=== PATIENT | female | born 1940 ===

== ENCOUNTER 2020-03-16 10:00 | Outpatient (RCR) | payer MEDICARE, SELFPAY ==
[2020-03-10 08:53] VITALS: BP 122/68
--- NOTE | 2020-03-10 10:52 | MHC.PT.EP ---
[facility] [place] [facility] [place] [facility] [place] Office [address] Jana Alvares [address] [phone] F: [phone] F: [phone] F: [phone] F: [phone] Physical Therapy Plan of Care Date of Evaluation: 03/10/20 Diagnosis: Hx of stroke with residual deficits Assessment: 79 y/o female referred to PT s/p CVA with residual effects. Pt reports the only problem is I can't drive. 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 She denies any residual effects except for some word finding occasionally. Currently she is I with ADL's, cooking, and her drives. 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 She ambulates with a SPC and uses furniture for balance around the house. She has B knee pain and gets cortisone shots every 3 months. Examination shows decreased R UE/LE strength (especially R shoulder and R hip), decreased B knee AROM, impaired dynamic balance, ESTEVES BAlance Test 34/56, intact proprioception B LE, intact sensation, mild dysdiadochokinesia UE and alternating feet, and impaired gat pattern. Recommend PT 2x/week (pt would prefer 1x/week) for 6 weeks to address gait/balance/LE strength/knee ROM impairments, implement HEP, and optimize functional mobility. Frequency and Duration: The patient will be seen 1x/week for 6 weeks Short Term Goals: 3 weeks: 1. Will turn 360* without UE support both directions < 10seconds (IR 18seconds with intermittent UE support) 2. Initiate HEP 3. Demonstrate L knee flexion during swing phase of gait (IR: maintains knee extension throughout cycle) Intermediate Goals: 6 weeks: 1. Improve ESTEVES to 45/56 2. Demonstrate 4/5 B LE strength 3. Demonstrate neutral sitting posture without cues 75% of the time (IR moderate L lateral lean/weightshift) Treatment Plan: Modalities to reduce pain, spasms and effusion. Manual therapy to restore motion and function. Therapeutic exercise to improve strength and flexibility. Neuromuscular re-education for posture and balance. Therapeutic activities to return to functional activities of daily living. Please sign and return to therapist. Thank you for your referral.
--- NOTE | 2020-04-19 16:39 | MHC.PT.DC ---
[facility] [place] [facility] [place] Office [place] Office [address] Jana Alvares [address] [phone] F: [phone] F: [phone] F: [phone] F: [phone] Physical Therapy Discharge Report Diagnosis: Hx of stroke with residual deficits Date of Surgery: NA Date of Evaluation: 03/10/20 Date of Discharge: 04/19/20 Treatments to Date: 2 Cancellations to Date: 0 No Shows to Date: 0 Discharge Status: Patient Elected to Stop Discharge Summary: Last attended treatment note: 03/16/20- Pt came in with no new complaints. She stated she was only here for the letter to return to driving. Pt educated on role of PT and importance of balance and strength exercises. After a lot of convincing pt agreed to try balance and strength exercises. Through the session and at the end of the session pt states she can perform all exercises at home and she found balance exercises silly . Pt expressed her desire to not return to therapy. Pt did well with static standing balance on ground. Step stance on airex EC and rocker board was challenging and needed min A to catch balance. Pt would benefit from dynamic balance exercises however pt does not want to perform them. 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 No adverse response noted to any exercise. She is d/c at this time due to over 30 days from last visit Electronically signed by: Yolanda Hernandez PT Please sign and return to therapist. Thank you for your referral.
== END 2020-04-19 16:49 | disposition other institution (70) ==
LOC: HO.PT 10:00
PROVIDERS: PCP Hospitalist; Visit Provider Hospitalist
DX: Z86.73 Personal history of transient ischemic attack (TIA), and cerebral infarction without residual deficits (principal)
CPT/HCPCS: 97110; 97112; 97162

== ENCOUNTER 2020-04-19 11:13 | Outpatient (REF) | payer MEDICARE, SELFPAY ==
--- NOTE | 2020-04-19 11:16 | US_ITS ---
EXAMINATION: US VENOUS ULTRASOUND WITH DOPPLER LOWER EXTREMITY, RIGHT CLINICAL INFORMATION: Swelling COMPARISON: None TECHNIQUE: Ultrasound of the deep veins is performed from the hip to the calf with compression sonography and color and pulse Doppler assessment. Spectral analysis with color-flow imaging is performed. FINDINGS: There is normal venous compression and respiratory variation and augmented flow. The visualized common femoral vein, superficial femoral vein, profunda femoral vein, popliteal vein, and the trifurcation region shows no evidence of deep venous thrombosis. There is no significant popliteal fossa cyst. US/US venous duplex LE RT IMPRESSION: No DVT demonstrated in the right lower extremity.
== END 2020-04-19 11:14 | disposition home or self-care (01) ==
LOC: HO.US 11:13
PROVIDERS: Visit Provider Hospitalist
DX: R60.0 Localized edema (principal)
CPT/HCPCS: 93971

== ENCOUNTER 2020-05-24 10:30 | Outpatient (REF) | payer MEDICARE, SELFPAY ==
[2020-05-24 14:13] LABS: Anion Gap 15 (12-20); Blood Urea Nitrogen 14 mg/dL (9-16); Calcium 9.2 mg/dL (8.4-10.2); Carbon Dioxide 28 mmol/L (22-29); Chloride 103 mmol/L (96-108); Estimated Glomerular Filt Rate > 60; Glucose Random 108 mg/dL (60-115); Potassium 4.5 mmol/l (3.3-5.1); Sodium 141 mmol/L (135-145)
== END 2020-05-24 10:31 | disposition home or self-care (01) ==
LOC: HO.WFDLDS 10:30
PROVIDERS: Visit Provider Hospitalist
DX: R60.0 Localized edema (principal)
CPT/HCPCS: 36415; 80048

== ENCOUNTER 2020-06-23 11:16 | Outpatient (REF) | payer MEDICARE, SELFPAY ==
[2020-06-23 14:28] LABS: Anion Gap 13 (12-20); Blood Urea Nitrogen 20 mg/dL (9-16); Carbon Dioxide 28 mmol/L (22-29); Chloride 105 mmol/L (96-108); Estimated Glomerular Filt Rate > 60; Glucose Random 218 mg/dL (60-115); Potassium 3.7 mmol/L (3.3-5.1); Sodium 142 mmol/L (135-145)
== END 2020-06-23 11:17 | disposition home or self-care (01) ==
LOC: HO.10HDL 11:16
PROVIDERS: Visit Provider Hospitalist
DX: R60.0 Localized edema (principal)
CPT/HCPCS: 36415; 80048

== ENCOUNTER 2020-09-13 05:56 | Emergency (ER) | payer MEDICARE, SELFPAY ==
--- NOTE | ~2020-09-13 | XR_ITS ---
EXAMINATION: XR HIP, RIGHT CLINICAL INFORMATION: Right hip pain. Groin pain. COMPARISON: None TECHNIQUE: Two views of the right hip. Frontal view of the pelvis. FINDINGS: No fracture or dislocation. The femoral heads are well-seated within their acetabula. Mild joint space narrowing bilaterally with subchondral sclerosis. The pelvic rim is intact. The sacroiliac joints and pubic symphysis are intact. The bowel gas pattern is unremarkable. XR/XR hip RT w PEL1V IMPRESSION: No acute abnormality. Mild degenerative changes of both hips.
--- NOTE | ~2020-09-13 | US_ITS ---
EXAMINATION: US VENOUS ULTRASOUND WITH DOPPLER LOWER EXTREMITY, RIGHT CLINICAL INFORMATION: Right-sided pain COMPARISON: None TECHNIQUE: Ultrasound of the deep veins is performed from the hip to the calf with compression sonography and color and pulse Doppler assessment. Spectral analysis with color-flow imaging is performed. FINDINGS: There is normal venous compression and respiratory variation and augmented flow. The visualized common femoral vein, superficial femoral vein, profunda femoral vein, popliteal vein, and the trifurcation region shows no evidence of deep venous thrombosis. There is no significant popliteal fossa cyst. US/US venous duplex LE RT IMPRESSION: No DVT demonstrated in the right lower extremity.
[2020-09-13 06:04] VITALS: BP 140/67; BP 161/72; PULSE 74; PULSE 85; RESP 20; TEMP 36.7; O2SAT 95; O2SAT 97; BMI 28.1
[2020-09-13 06:13] VITALS: BP 140/67; PULSE 88; RESP 20; O2SAT 95
--- NOTE | 2020-09-13 06:23 | ED.EXTPRO ---
HPI - Extremity Problem General Chief complaint: Extremity Injury, Upper Stated complaint: fall Time Seen by Provider: 09/13/20 06:16 Source: patient Mode of arrival: EMS Limitations: no limitations History of Present Illness HPI Narrative: Patient comes emergency room complaining of right-sided hip pain. The pain started yesterday, it is in the groin area, worse with movement. Patient denies any trauma. Patient has tried ibuprofen and Tylenol with minimal relief. Patient states that she is able to tolerate weight. MD Complaint: extremity pain Related Data Home Medications Medication Instructions Recorded Confirmed amlodipine 1 tab PO DAILY 09/13/20 09/13/20 Previous Rx's Medication Instructions Recorded potassium chloride 10 mEq 10 meq PO DAILY 90 Days #90 tab 07/03/20 tablet,extended release(part/cryst) furosemide 40 mg tablet 40 mg PO BID #60 tab 08/23/20 Allergies Allergy/AdvReac Type Severity Reaction Status Date / Time Sulfa (Sulfonamide Allergy Intermediate HIVES Verified 09/13/20 06:08 Antibiotics) [SULFA (SULFONAMIDE ANTIBIOTICS)] epinephrine AdvReac Severe palpitation Verified 09/13/20 06:08 s Review of Systems Review of Systems: Constitutional : No Weight loss, No Fever, No Chills, No Night Sweats, No Fatigue, No Malaise ENT/Mouth : No Hearing loss, No Ear Pain, No Nasal Congestion, No Sinus Pain, No Hoarseness, No sore throat, No Rhinorrhea, No Swallowing Difficulty Eyes: No Eye Pain, No Swelling, No Redness, No Foreign Body, No Discharge, No Vision Changes Cardiovascular : No Chest Pain, No SOB, No Dyspnea on Exertion, No Orthopnea, No Edema, No Palpitations Respiratory : No Cough, No Sputum, No Wheezing, No Smoke Exposure, No Dyspnea Gastrointestinal : No Nausea, No Vomiting, No Diarrhea, No Constipation, No abdominal Pain, No Hematochezia, No Melena Genitourinary : no irregular bleeding, No Dysuria, No Urinary Frequency, No Hematuria, No Urinary Incontinence, No Urgency, No Flank Pain, No Urinary Flow Changes, No Hesitancy Musculoskeletal : Complaining of right-sided hip pain, complaining of chronic bilateral knee pain, No Myalgias, No Joint Swelling Skin : No Skin Lesions, No rash Neuro : No Weakness, No Numbness, No Paresthesias, No Loss of Consciousness, No Dizziness, No Headache Psych : No Anxiety/Panic, No Depression, No SI/HI/AH/VH, No Social Issues, Heme/Lymph: No Bruising, No Bleeding,No Lymphadenopathy Endocrine : No Polyuria, No Polydipsia, No Temperature Intolerance [facility] Past Medical History Surgical History History of arthroscopy of right knee History of bilateral cataract extraction History of tonsillectomy History of total abdominal hysterectomy and bilateral salpingo-oophorectomy History of tubal ligation S/P skin biopsy Family History Family History Father Rheumatic heart disease Hypertension Mother CVD (cardiovascular disease) Dementia Sister Breast cancer Brother No problems noted. Paternal Aunt Breast cancer Family/Other FH: mental illness Social History Social History Alcohol intake: never Smoking Status: Current every day smoker Smoked in Last 30 Days: Yes Use of substances other than those prescribed or required for medical reasons: No Advance Directives: Yes Advance Directives Information Provided: Yes Advance Directives on File: No Physical Exam Vital Signs: Vital Signs: Last Vital Signs Temp 98.0 F 09/13/20 06:04 Pulse 88 09/13/20 06:13 Resp 20 09/13/20 06:13 BP 140/67 H 09/13/20 06:13 Pulse Ox 95 09/13/20 06:13 Body Mass Index 28.1 Appearance: Alert. Oriented X3. No acute distress. Eyes: Pupils equal, round and reactive to light. ENT: Pharynx normal. Neck: Normal inspection. Neck supple. No lymph nodes noted. No crepitus CVS: Normal heart rate and rhythm. Pulses normal. Normal S1 and S2 Respiratory: No respiratory distress. Breath sounds normal. No Wheezing. No rales Abdomen: Soft and nontender. No rigidity. No distention. good BS x4 Skin: Skin warm and dry. Normal skin color. Normal skin turgor. Extremities: No lower extremity edema. Patient is able to flex and extend hip on the left side, knee and ankle. On the right side, patient is able to flex and extend the knee, patient has pain with hip flexion and extension and rotation. Neuro: Oriented X 3. No motor deficit. No sensory deficit. Moving all extermities. No slurred speech. Course Course Course Narrative: Patient's x-ray is negative, patient is able to bear weight, walks with a cane assisted. Patient requested to be seen by Physical therapy and by case management for possible additional help at home. Case management and physical therapy consult is pending. Physician observation starts at this time, 07:30, patient stable, eating breakfast. This time, fracture is not suspected. Patient continues having ongoing, patient may need a CT scan at this time, patient is walking and bearing weight on the right side of the hip. As mentioned above, no history of trauma. Sign-out given to Dr. Beaver Discharge Plan Discharge Clinical Impression: Acute right hip pain Prescriptions: No Action furosemide 40 mg tablet 40 mg PO BID Qty: 60 RF: 2 amlodipine 5 mg tablet 1 tab PO DAILY RF: 0 potassium chloride [Klor-Con M10] 10 mEq tablet,ER particles/crystals 10 meq PO DAILY 90 Days Qty: 90 RF: 1
[2020-09-13] MEDS: traMADoL HCL 50 MG TABLET PO (06:32)
--- NOTE | 2020-09-13 06:50 | PC.NURSE ---
Pt ambulatory with assist x 1 to bathroom with use of baseline cane. Pt with slow but steady gait. Pt now to XR
--- NOTE | 2020-09-13 07:30 | PC.NURSE ---
DR CHAVIRA SPOKE WITH PT. PT EVAL/CM ORDERED. BKFST TRAY GIVEN
[2020-09-13 07:48] VITALS: BP 140/67; PULSE 88; O2SAT 95
[2020-09-13] MEDS: oxyCODONE HCl Immed Release 5 MG TABLET PO (08:06)
--- NOTE | 2020-09-13 09:36 | MHC.CM.ED ---
Addendum entered by Yaritza Farias 09/13/20 10:28: Patient received [employer] Covid vaccine in the middle of . Original Note: Received case managment consult from Dr Morgan. Patient came to the ER due to hip pain. Work up essentially negative. Physical therapy eval completed. Home therapy is recommended. Met with patient in regards to discharge planning. Patient lives with her , uses a cane for mobility and had no services prior to coming to the ER. Patient was active with [facility] in the past. When [facility] services were offered, patient declined because she doesn't feel she needs them. When she had them in the past, she felt they wanted her to perform tasks that were not necessary . When asked to elaborate, patient stated they wanted her to work on going up and down the stairs. Patient didn't feel this was necessary because her washer and dryer are in the basement. But, she hired someone to do her laundry. Patient's will provide transportation when discharged. Continue to monitor for d/c needs.
[2020-09-13] MEDS: Acetaminophen 325 MG TABLET 650 MG PO (12:44)
== END 2020-09-13 13:00 | disposition home or self-care (01) ==
PROVIDERS: Emergency Provider Emergency Medicine; PCP Hospitalist
DX: M25.551 Pain in right hip (principal); M79.604 Pain in right leg; M25.562 Pain in left knee; M25.561 Pain in right knee; F17.200 Nicotine dependence, unspecified, uncomplicated
CPT/HCPCS: 73502; 93971; 97162; 99285

== ENCOUNTER 2020-09-15 06:17 | Emergency (ER) | payer MEDICARE, SELFPAY ==
--- NOTE | ~2020-09-15 | CT_ITS ---
EXAMINATION: CT HIP WITHOUT CONTRAST, RIGHT CLINICAL INFORMATION: Right hip pain COMPARISON: Right hip x-ray 09/13/2020 TECHNIQUE: 2 mm thin axial and reformatted 1 mm thin sagittal and coronal images of right hip were obtained This CT examination was performed using dose optimization techniques as appropriate, variously including the following: *Automated exposure control *Adjustment of mA and/or kV according to patient size (this includes techniques or standardized protocols for targeted exams where dose is matched to indication/reason for exam; i.e. extremities or head) *Use of iterative reconstruction technique DLP: 244 mGy-cm FINDINGS: There is mild reduction in the right hip joint space with minimal periarticular spurring. There is no visible acute fracture or dislocation involving the right hip or the right hemipelvis. Partially visualized right sacrum appears unremarkable. There is mild degenerative changes L5-S1 and right SI joint. There are nonspecific small right inguinal lymph nodes measuring 0.[address]/CT hip RT wo con IMPRESSION: No visible acute fracture, dislocation or subluxation right hip. Mild degenerative changes right hip joint and right SI joint.
--- NOTE | 2020-09-15 06:38 | ED.EXTPRO ---
HPI - Extremity Problem General Chief complaint: Extremity Problem Stated complaint: Hip pain Time Seen by Provider: 09/15/20 06:38 Source: patient Mode of arrival: ambulatory Limitations: no limitations History of Present Illness HPI Narrative: 80 yo female one month of worsening R hip pain atraumatic, has had xrays in past no fracture, trying PT at home with tylenol and aleve but notes the pain is much worse so she came back to the ED Complaint: extremity pain Onset (ago): month(s) (1) Pain Consistency: constant Location: right and lower extremity Quality: aching Radiation: none Relieving factors: nothing Exacerbating factors: weight bearing and walking Associated symptoms: denies other symptoms Related Data Home Medications Medication Instructions Recorded Confirmed amlodipine 1 tab PO DAILY 09/13/20 09/13/20 Previous Rx's Medication Instructions Recorded potassium chloride 10 mEq 10 meq PO DAILY 90 Days #90 tab 07/03/20 tablet,extended release(part/cryst) furosemide 40 mg tablet 40 mg PO BID #60 tab 08/23/20 lidocaine 1 patch TOPICAL DAILY PRN #10 ea 09/15/20 oxycodone 5 mg PO BID PRN #10 tab 09/15/20 Allergies Allergy/AdvReac Type Severity Reaction Status Date / Time Sulfa (Sulfonamide Allergy Intermediate HIVES Verified 09/13/20 06:08 Antibiotics) [SULFA (SULFONAMIDE ANTIBIOTICS)] epinephrine AdvReac Severe palpitation Verified 09/13/20 06:08 s Review of Systems Review of Systems: Constitutional : No Fever, No Chills ENT/Mouth : No Ear Pain, No Hoarseness, No sore throat Eyes: No Eye Pain, No Swelling, No Redness, No Foreign Body Cardiovascular : No Chest Pain, No SOB Respiratory : No Cough, No Dyspnea Gastrointestinal : No Nausea, No Vomiting, No Diarrhea, No abdominal Pain Genitourinary : No Dysuria, No Hematuria Musculoskeletal : positive joint pain, No Myalgias, No Joint Swelling Skin : No Skin lacerations, No rash Neuro : No Weakness, No Numbness, No Loss of Consciousness, No Dizziness, No Headache Psych : No Anxiety/Panic, No Depression Heme/Lymph: no easy bruising, no Lymphadenopathy Endocrine : No Polyuria, No Polydipsia All other systems reviewed and are negative PMFSH Past Medical History Attestation statement: The following information was validated with the patient. Medical History History of CVA (cerebrovascular accident) Hypertension, essential Pedal edema Unilateral edema of lower extremity Surgical History History of arthroscopy of right knee History of bilateral cataract extraction History of tonsillectomy History of total abdominal hysterectomy and bilateral salpingo-oophorectomy History of tubal ligation S/P skin biopsy Family History Family History Father Rheumatic heart disease Hypertension Mother CVD (cardiovascular disease) Dementia Sister Breast cancer Brother No problems noted. Paternal Aunt Breast cancer Family/Other FH: mental illness Social History Social History Alcohol intake: never Smoking Status: Current every day smoker Use of substances other than those prescribed or required for medical reasons: No Advance Directives: No Physical Exam Vital Signs: Vital Signs: Last Vital Signs Temp 98.0 F 09/15/20 06:59 Pulse 72 09/15/20 06:59 Resp 18 09/15/20 06:59 BP 136/65 09/15/20 06:59 Pulse Ox 98 09/15/20 06:59 Body Mass Index 27.4 Appearance: Alert. Oriented X3. No acute distress. Eyes: Pupils equal, round and reactive to light. ENT: Pharynx normal. Neck: Normal inspection. Neck supple. CVS: Normal heart rate and rhythm. Pulses normal. Respiratory: No respiratory distress. Breath sounds normal. Abdomen: Soft and nontender. Skin: Skin warm and dry. Normal skin color. Normal skin turgor. Extremities: No lower extremity edema. R lateral hip ttp no erythema/hematoma Neuro: Oriented X 3. No motor deficit. No sensory deficit. Course Course Course Narrative: no acute findings, stable for DC, will call her orthopedist, up and walking without issue MDM - Extremity (Nontraumatic) MDM Narrative Medical decision making narrative: 80 yo female hx of HTN, CVA no residual deficits comes in with c/o R hip pain > 1 month atraumatic at this time will need CT scan to r/o occult fracture mass, PO pain medications. infection seems unlikely, dispo per results and findings. Discharge Plan Discharge Patient Disposition: Home, Self-Care Instructions: Hip Pain (ED) Additional Instructions: return to ED for any worsening symptoms or concerns please follow up with your orthopedic doctor FINDINGS: There is mild reduction in the right hip joint space with minimal periarticular spurring. There is no visible acute fracture or dislocation involving the right hip or the right hemipelvis. Partially visualized right sacrum appears unremarkable. There is mild degenerative changes L5-S1 and right SI joint. There are nonspecific small right inguinal lymph nodes measuring 0.[address]/CT hip RT wo con IMPRESSION: No visible acute fracture, dislocation or subluxation right hip. Mild degenerative changes right hip joint and right SI joint. Prescriptions: New lidocaine 4 % adhesive patch,medicated 1 patch topical DAILY PRN (Reason: pain) Qty: 10 RF: 0 oxycodone 5 mg tablet 5 mg PO BID PRN (Reason: pain) Qty: 10 RF: 0 No Action furosemide 40 mg tablet 40 mg PO BID Qty: 60 RF: 2 amlodipine 5 mg tablet 1 tab PO DAILY RF: 0 potassium chloride [Klor-Con M10] 10 mEq tablet,ER particles/crystals 10 meq PO DAILY 90 Days Qty: 90 RF: 1
[2020-09-15 06:59] VITALS: BP 136/65; PULSE 72; RESP 18; TEMP 36.7; O2SAT 98; BMI 27.4
[2020-09-15] MEDS: HYDROcodone Bit/Acetam 5/325 TABLET 1 TAB PO (07:41)
--- NOTE | 2020-09-15 07:53 | PC.NURSE ---
PT TO CT
--- NOTE | 2020-09-15 08:06 | PC.NURSE ---
PT RETURN FROM CT PT AMBULATED TO BATHROOM AND BACK WITH CANE INDEPENDENTLY
== END 2020-09-15 09:11 | disposition home or self-care (01) ==
PROVIDERS: Emergency Provider Emergency Medicine; PCP Internal Medicine
DX: M25.551 Pain in right hip (principal); I10 Essential (primary) hypertension; F17.200 Nicotine dependence, unspecified, uncomplicated; Z71.6 Tobacco abuse counseling; Z79.899 Other long term (current) drug therapy
CPT/HCPCS: 73700; 99284

== ENCOUNTER 2020-10-07 02:44 | Inpatient (IN) | payer MEDICARE, SELFPAY ==
[2020-10-07] VITALS (31 sets, daily range): BP systolic 97–151; BP diastolic 50–97; PULSE 77–109; RESP 14–24; TEMP 36.2–37.3; O2SAT 88–95; BMI 34.7
--- NOTE | ~2020-10-07 | XR_ITS ---
EXAMINATION: XR CHEST CLINICAL INFORMATION: Hypoxia COMPARISON: Chest radiograph 10/20/[address] angiogram of the chest 10/07/2020 TECHNIQUE: Frontal view of the chest was obtained. FINDINGS: Enteric tube with tip below the level of the film. Normal cardiac mediastinal silhouette. Hypoinflation of the lungs with streaky opacities at bilateral lung bases. Chronic interstitial changes are again demonstrated. No significant pleural effusion or pneumothorax. No acute osseous abnormality. XR/XR chest 1V IMPRESSION: Low lung volumes with streaky atelectasis at the bilateral lung bases.
--- NOTE | ~2020-10-07 | XR_ITS ---
EXAMINATION: XR CHEST CLINICAL INFORMATION: Follow-up hypoxia COMPARISON: Chest x-ray 10/20/2019 TECHNIQUE: Frontal view of the chest was obtained. FINDINGS: The lungs are hypoexpanded with bibasilar patchy density likely atelectasis or effusion. Heart size enlarged with increased pulmonary vascular, question mild congestion. No gross bony abnormality seen. Enteric tube tip is below the diaphragm in the stomach. XR/XR chest 1V IMPRESSION: Bibasilar patchy atelectasis and/or effusion. Tip of enteric tube is below diaphragm in the stomach.
--- NOTE | ~2020-10-07 | XR_ITS ---
EXAMINATION: XR CHEST CLINICAL INFORMATION: Follow-up atelectasis and hypoxia. COMPARISON: Chest 10/07/2020 TECHNIQUE: Frontal view of the chest was obtained. FINDINGS: The lungs are hypoexpanded with mild blunting of left CP angle. Mild haziness seen in both lung bases suspicious for atelectasis. Heart size is normal. Pulmonary vascularity is normal. There is enteric tube below the diaphragm. Moderate spondylosis dorsal spine is noted. No lytic process. XR/XR chest 1V IMPRESSION: Hypoexpanded lungs with mild blunting of left CP angle likely pleural thickening or effusion. Suspect bibasilar atelectasis
--- NOTE | ~2020-10-07 | CT_ITS ---
EXAMINATION: CT CHEST WITHOUT CONTRAST CLINICAL INFORMATION: Persistent hypoxemia COMPARISON: Chest CT from 10/07/2020. CXR from 10/12/2020. TECHNIQUE: Multidetector volumetric CT imaging of the chest was done. Axial MIP volume rendering provided. Sagittal and coronal reformatted images were obtained. This CT examination was performed using dose optimization techniques as appropriate, variously including the following: *Automated exposure control *Adjustment of mA and/or kV according to patient size (this includes techniques or standardized protocols for targeted exams where dose is matched to indication/reason for exam; i.e. extremities or head) *Use of iterative reconstruction technique DLP: 186 mGy-cm FINDINGS: LUNGS AND PLEURA: Moderate centrilobular emphysema. Minimal thickening of interlobular septa at lung apices/upper lobes consistent with interstitial edema. Small bilateral pleural effusions are present, and there is passive atelectasis in lower lobes. Mild atelectasis also noted in middle lobe and inferior lingula. No consolidation. CARDIOVASCULAR: Heart size is normal. [id number] atherosclerotic calcification of coronary arteries. Moderate atherosclerosis of thoracic aorta without aneurysm. However, the proximal descending aorta is mildly dilated (3.7 cm transverse diameter). No pericardial effusion. Pulmonary arteries are normal in size. MEDIASTINUM AND LOWER NECK: The esophagus has normal wall thickness. Thyroid gland is grossly unremarkable. No mediastinal mass. LYMPHATICS: No pathologic sized lymph nodes. Although multiple lymph nodes are seen within the mediastinum, they are in the normal size range. There is no bulky hilar lymphadenopathy. UPPER ABDOMEN: 2.6 cm simple cyst of the right kidney is partially included in the [id number]. Imaging follow-up is not recommended for simple cysts. An upper abdominal drainage tube is partially included in the [id number]. SKELETAL AND CHEST WALL: There are hypertrophic degenerative changes of the spine. No aggressive osseous lesion. CT/CT chest wo con IMPRESSION: * Moderate pulmonary emphysema. * Minimal interstitial edema, small pleural effusions and bibasilar atelectasis. * Atherosclerotic calcification of coronary arteries and thoracic aorta. The mildly dilated proximal descending aorta is 3.7 cm transverse diameter. * An upper abdominal drainage tube is partially included in the [id number].
--- NOTE | ~2020-10-07 | CT_ITS ---
EXAMINATION: CT ABDOMEN AND PELVIS WITH CONTRAST CLINICAL INFORMATION: Diffuse abdominal pain, worse in the epigastric region. COMPARISON: 10/18/2018 TECHNIQUE: Multidetector volumetric images were obtained from the superior aspect of the liver through the pubic symphysis following administration 85 mL of Omnipaque 350 intravenous contrast. Sagittal and coronal reformatted images were obtained on the technologist's workstation. Oral contrast: No This CT examination was performed using dose optimization techniques as appropriate, variously including the following: *Automated exposure control *Adjustment of mA and/or kV according to patient size (this includes techniques or standardized protocols for targeted exams where dose is matched to indication/reason for exam; i.e. extremities or head) *Use of iterative reconstruction technique DLP: 899 mGy-cm FINDINGS: LUNG BASES: The visualized lung bases are unremarkable. LIVER, GALLBLADDER, AND BILIARY TREE: The liver is normal in size, shape, and attenuation. No focal hepatic lesion or biliary ductal dilatation is present. The gallbladder is unremarkable with no evidence of radiopaque gallstones, gallbladder wall thickening, or obvious pericholecystic inflammatory changes. PANCREAS: Unremarkable. SPLEEN: Unremarkable. ADRENAL GLANDS: Unremarkable. KIDNEYS AND URETERS: The kidneys are normal in size, shape, and attenuation. No hydronephrosis, hydroureter, or calculi seen. No perinephric stranding. Simple cysts of the right kidney. Right lower pole cyst measures 2 cm. Right upper pole cyst measures 3.1 cm. No follow-up imaging recommended. BLADDER: Unremarkable. GASTROINTESTINAL TRACT: Small hiatal hernia. The stomach is otherwise unremarkable. Normal caliber small bowel. No obstruction. Colonic diverticulosis is present. There is no diverticulitis. There is a small amount of free air seen throughout the abdomen this is seen greatest in the upper abdomen. Small amount of simple free fluid in the pelvis.. ABDOMINAL WALL: No significant hernia is appreciated. LYMPH NODES: Normal. VASCULAR: Normal caliber aorta with mild atherosclerotic calcification. Grade 1 anterolisthesis of L4 on L5 with disc space loss at this site. PELVIC VISCERA: Uterus is not seen. No adnexal mass. OSSEOUS STRUCTURES: No acute or suspicious osseous abnormality. Degenerative changes of the spine. CT/CT abdomen pelvis w con IMPRESSION: Pneumoperitoneum. This is of uncertain source. Consider gastric or duodenal ulcer. This critical result was discussed with Elba Morgan MD by telephone at 10/07/2020 3:33 AM and it was ascertained that the content and urgency of the report was understood at the time of direct communication.
--- NOTE | ~2020-10-07 | XR_ITS ---
EXAMINATION: XR CHEST CLINICAL INFORMATION: Respiratory failure. COMPARISON: 10/09/2020 and 10/08/2020 chest radiographs. TECHNIQUE: Frontal view of the chest was obtained. FINDINGS: Support devices: Interval removal of nasogastric tube. There are persistent small bilateral pleural effusions. Mild diffuse increased interstitial markings are seen without significant change. The heart and mediastinal structures are unremarkable. XR/XR chest 1V IMPRESSION: Small bilateral pleural effusions without significant change. Underlying mild edema cannot be excluded.
--- NOTE | ~2020-10-07 | CT_ITS ---
EXAMINATION: CT ANGIOGRAM OF THE CHEST WITH AND WITHOUT CONTRAST (CT PULMONARY ANGIOGRAM FOR PE) CLINICAL INFORMATION: Reason for Exam sob COMPARISON: None TECHNIQUE: Prior to contrast administration, noncontrast localization images were obtained. Subsequently, multidetector volumetric imaging was performed from the thoracic inlet to below the diaphragms following the administration of 85 mL Omnipaque 350 intravenous contrast. No contrast reaction reported Sagittal, coronal, and MIP oblique sagittal reformatted images were obtained on the CT workstation, uploaded to PACS, and reviewed. This CT examination was performed using dose optimization techniques as appropriate, variously including the following: *Automated exposure control *Adjustment of mA and/or kV according to patient size (this includes techniques or standardized protocols for targeted exams where dose is matched to indication/reason for exam; i.e. extremities or head) *Use of iterative reconstruction technique Total exam dose-length product 899 mGy-cm FINDINGS: QUALITY OF STUDY/CONTRAST BOLUS: Satisfactory. PULMONARY ARTERIES: No central or segmental pulmonary emboli. THORACIC AORTA: No aneurysm or dissection. LUNG: The central airways are patent. Severe centrilobular emphysema. Minimal dependent atelectasis. No dense consolidation. PLEURA: No pleural effusion or pneumothorax. MEDIASTINUM: Normal heart size. No pericardial effusion. No hilar or mediastinal lymphadenopathy. No evidence of septal bowing or right heart strain. CHEST WALL/AXILLA: No axillary or internal mammary lymphadenopathy. OSSEOUS STRUCTURES: No acute or suspicious osseous abnormality. Degenerative changes of the spine. UPPER ABDOMEN: Pneumoperitoneum noted, as seen on associated abdominal CT. No reflux of contrast into the hepatic veins to suggest elevated right heart pressures. CT/CT angio chest PE protocol IMPRESSION: 1. No pulmonary embolism. 2. Severe emphysema. No acute pulmonary finding. 3. Pneumoperitoneum. This was previously discussed with Dr. Morgan on the abdominal CT. VTE: negative
--- NOTE | 2020-10-07 02:54 | ECG_ITS ---
Test Reason : EPIGASTRIC PAIN Blood Pressure : / mmHG Vent. Rate : 105 BPM Atrial Rate : 105 BPM P-R Int : 122 ms QRS Dur : 074 ms QT Int : 306 ms P-R-T Axes : 047 020 035 degrees QTc Int : 404 ms Artifact in tracing Sinus tachycardia Possible Left atrial enlargement Borderline ECG When compared with ECG of 20-OCT-2019 08:32, Vent. rate has increased BY 43 BPM Referred By: Elba Morgan Electronically Signed By:SHANNAN STARR
--- NOTE | 2020-10-07 03:10 | ED.GENADULT ---
HPI - General Adult General Chief complaint: Abdominal Pain Stated complaint: abdominal pain Time Seen by Provider: 10/07/20 02:53 Source: patient and EMS Mode of arrival: EMS Limitations: no limitations History of Present Illness HPI narrative: Patient comes emergency room complaining of severe abdominal pain. Patient states this started gradually at 21:00. Patient coming from home. Abdominal pain became very intense, patient call 911. EN route to hospital, it was noted that patient's blood sugar is above 300. Patient denies any history of diabetes. Patient states she has intense diffuse abdominal pain but is worse in the lower quadrant. Patient denies vomiting, complaining of nausea, no diarrhea. Related Data Home Medications Medication Instructions Recorded Confirmed amlodipine 1 tab PO DAILY 09/13/20 09/13/20 Previous Rx's Medication Instructions Recorded potassium chloride 10 mEq 10 meq PO DAILY 90 Days #90 tab 07/03/20 tablet,extended release(part/cryst) furosemide 40 mg tablet 40 mg PO BID #60 tab 08/23/20 lidocaine 1 patch TOPICAL DAILY PRN #10 ea 09/15/20 meloxicam 15 mg tablet 15 mg PO DAILY 30 Days #30 tab 09/18/20 Allergies Allergy/AdvReac Type Severity Reaction Status Date / Time Sulfa (Sulfonamide Allergy Intermediate HIVES Verified 09/18/20 11:42 Antibiotics) [SULFA (SULFONAMIDE ANTIBIOTICS)] epinephrine AdvReac Severe palpitation Verified 09/18/20 11:42 s Review of Systems Review of Systems: Constitutional : No Weight loss, No Fever, No Chills, No Night Sweats, No Fatigue, No Malaise ENT/Mouth : No Hearing loss, No Ear Pain, No Nasal Congestion, No Sinus Pain, No Hoarseness, No sore throat, No Rhinorrhea, No Swallowing Difficulty Eyes: No Eye Pain, No Swelling, No Redness, No Foreign Body, No Discharge, No Vision Changes Cardiovascular : No Chest Pain, No SOB, No Dyspnea on Exertion, No Orthopnea, No Edema, No Palpitations Respiratory : No Cough, No Sputum, No Wheezing, No Smoke Exposure, No Dyspnea Gastrointestinal : Complaining of nausea, No Vomiting, No Diarrhea, No Constipation, complaining of severe diffuse abdominal pain, No Hematochezia, No Melena Genitourinary : no irregular bleeding, No Dysuria, No Urinary Frequency, No Hematuria, No Urinary Incontinence, No Urgency, No Flank Pain, No Urinary Flow Changes, No Hesitancy Musculoskeletal : No joint pain, No Myalgias, No Joint Swelling Skin : No Skin Lesions, No rash Neuro : No Weakness, No Numbness, No Paresthesias, No Loss of Consciousness, No Dizziness, No Headache Psych : No Anxiety/Panic, No Depression, No SI/HI/AH/VH, No Social Issues, Heme/Lymph: No Bruising, No Bleeding,No Lymphadenopathy Endocrine : No Polyuria, No Polydipsia, No Temperature Intolerance [facility] Past Medical History Medical History History of CVA (cerebrovascular accident) Hypertension, essential Pedal edema Unilateral edema of lower extremity Surgical History History of arthroscopy of right knee History of bilateral cataract extraction History of tonsillectomy History of total abdominal hysterectomy and bilateral salpingo-oophorectomy History of tubal ligation S/P skin biopsy Family History Family History Father Rheumatic heart disease Hypertension Mother CVD (cardiovascular disease) Dementia Sister Breast cancer Brother No problems noted. Paternal Aunt Breast cancer Family/Other FH: mental illness Social History Social History Alcohol intake: never Advance Directives: No Advance Directives Information Provided: No Physical Exam Vital Signs: Vital Signs: Last Vital Signs Pulse 109 H 10/07/20 02:51 Resp 16 10/07/20 03:26 BP 151/97 H 10/07/20 02:51 Pulse Ox 95 10/07/20 02:51 Oxygen Flow Rate 2 10/07/20 02:51 Body Mass Index 34.7 Appearance: Alert. Oriented X3. In distress due to pain Eyes: Pupils equal, round and reactive to light. ENT: Pharynx normal. Neck: Normal inspection. Neck supple. No lymph nodes noted. No crepitus CVS: Normal heart rate and rhythm. Pulses normal. Normal S1 and S2 Respiratory: No respiratory distress. Mildly tachypneic, no rales or crackles, oxygen saturation 88% on room air, 95% on 2 L nasal cannula Abdomen: Soft , diffusely tender to palpation, guarding and rebound present. No rigidity. No distention. Skin: Skin warm and dry. Pale Extremities: No lower extremity edema. No lower extremity edema. No Lacerations. No Rash Neuro: Oriented X 3. No motor deficit. No sensory deficit. Moving all extermities. No slurred speech. Course Reevaluation(s) Reevaluation #1: Patient denies any recent respiratory illnesses, patient is not on oxygen, patient complaining of shortness of breath and abdominal pain. CT scan shows severe emphysema. Likely cause that patient has mild hypoxia.Patient is now on 2 L, breathing comfortably. CT for PE negative. Receive a phone call from [facility] regarding the patient's CT findings, patient has free air in the abdomen, unknown source. Patient denies taking NSAIDs, she only uses Tylenol. I discussed the patient with Dr. Farrell, who is coming to evaluate the patient, patient likely going to the OR. At this time, although labs are pending Patient states the last time she ate/drank anything was at 01:00, she had a Sprite Medical Decision Making Lab Data Result diagrams: 10/07/20 03:42 10/07/20 03:42 ECG Data Attestation: I personally reviewed and interpreted this ECG as follows: (Sinus tachycardia, heart rate 105, no ST segment depression or elevation, no T-wave inversion, QTC 404) Discharge Plan Discharge Prescriptions: No Action furosemide 40 mg tablet 40 mg PO BID Qty: 60 RF: 2 amlodipine 5 mg tablet 1 tab PO DAILY RF: 0 lidocaine 4 % adhesive patch,medicated 1 patch topical DAILY PRN (Reason: pain) Qty: 10 RF: 0 potassium chloride [Klor-Con M10] 10 mEq tablet,ER particles/crystals 10 meq PO DAILY 90 Days Qty: 90 RF: 1 meloxicam 15 mg tablet 15 mg PO DAILY 30 Days Qty: 30 RF: 1
[2020-10-07] MEDS: iohexoL 350 MG/ML 100 ML INFUS..BTL 85 ML IV (03:22)
[2020-10-07] MEDS: Morphine Sulfate 4 MG/ML CARTRIDGE IVPUSH (03:26)
[2020-10-07] MEDS: 0.9 % Sodium Chloride 1,000 ML 999 ML IVCONT ×2 (03:26→05:15)
[2020-10-07] MEDS: ondansetron HCL 4 MG/2 ML VIAL IVPUSH (03:26)
[2020-10-07 03:49] LABS: Basophils Percent Auto 0.2 % (0-2); Eosinophils Percent Auto 0.1 % (0-4); Hematocrit 36.4 % (37-47); Hemoglobin 10.9 g/dl (12.0-16.0); Imm Gran Abs Auto 0.05 X10*3/uL (0.00-0.03); Imm Gran Pct Auto 0.3 % (0.0-0.4); Lymphocytes Absolute Auto 0.7 X10*3/uL (1.2-4.9); Lymphocytes Percent Auto 4.5 % (20-40); Mean Corpuscular HGB Conc 29.9 g/dl (31.0-35.0); Mean Corpuscular Hemoglobin 24.6 pg (27.0-33.0); Mean Corpuscular Volume 82.2 fL (80-98); Monocytes Absolute Auto 0.3 X10*3/uL (0.1-1.2); Monocytes Percent Auto 2.1 % (2-11); Neutrophils Absolute Auto 14.5 X10*3/uL (2.0-8.3); Neutrophils Percent Auto 92.8 % (45-73); Platelet Count 401 X10*3/uL (160-400); Red Blood Count 4.43 X10*6/uL (4.20-5.50); Red Cell Distribution Width 19.5 % (11.0-16.0); SCAN SMEAR FLAG 1; White Blood Count 15.6 X10*3/uL (4.8-10.8)
[2020-10-07 03:53] LABS: Venous Blood Gas Refer to POC result
[2020-10-07 03:54] LABS: MANUAL DIFF FLAG SCAN
[2020-10-07 03:54] LABS: VBG HCO3 19 mmol/L (22-26); VBG pCO2 36 mmHg; VBG pH 7.32 (7.32-7.43); VBG pO2 42 mmHg
[2020-10-07 03:55] LABS: INTERNATIONAL NORM RATIO 1.3 (0.9-1.1)
[2020-10-07 04:02] LABS: COVID-19 Test Negative (Negative); IDNOW Serial# 9DD0AD1C
[2020-10-07] MEDS: HYDROmorphone HCl 1 MG/ML SYRINGE IVPUSH (04:06)
[2020-10-07 04:11] LABS: Appearance Urine CLEAR; Color Urine YELLOW; Glucose Urine UA NEG (NEG); Leukocyte Esterase Urine NEG (NEG); Nitrite Urine NEG (NEG); PH 5.5 (5.0-8.0); Specific Gravity - Urine 1.015 (1.005-1.025); UACC Culture Trigger NO; Urine Blood NEG (NEG); Urine Ketones NEG (NEG); Urine Protein NEG (NEG-TRACE)
[2020-10-07 04:11] LABS: Lactic Acid 2.7 mmol/L (0.5-2.0)
--- NOTE | 2020-10-07 04:12 | PC.NURSE ---
PATIENT MEDICATED FOR PAIN STATING LITTLE TO NO RELIEF, BREATHING IS SHALLOW, PATIENT TENSING UP WITH PAIN. PATIENT STATING COPD DENIES NOT USE O2 AT HOME. ROOM AIR IS 88%, PATIENT IS 91% ON 2L. PATIENT REPORTS LAST TIME SHE DRANK SOMETHING WAS AT 1AM ON 10/07/20 IT WAS A SPRITE AND ATE SOMETHING YESTERDAY EVENING. IV ACCESS OBTAINED, LABS OBTAINED, BLOOD TYPE AND SCREEN OBTAINED FOR SURGERY, EKG, AND CT SCAN COMPLETE. LIAO IN PLACE. IV FLUID RUNNING AT THIS TIME.
[2020-10-07 04:13] LABS: Alanine Aminotransferase 13 U/L (0-31); Albumin Level 3.8 g/dL (3.5-5.0); Alkaline Phosphatase 65 U/L (39-117); Anion Gap 18 (12-20); Aspartate Amino Transferase 14 U/L (5-31); Bilirubin Direct 0.3 mg/dL (0.0-0.5); Bilirubin Total 0.4 mg/dL (0.0-1.0); Blood Urea Nitrogen 23 mg/dL (9-16); Calcium 10.1 mg/dL (8.4-10.2); Carbon Dioxide 22 mmol/L (22-29); Chloride 100 mmol/L (96-108); Creatinine Clr Calc Pharmacy 46.2; Estimated Glomerular Filt Rate 52; Glucose Random 212 mg/dL (60-115); Lipase 53 U/L (8-78); Potassium 3.9 mmol/L (3.3-5.1); Sodium 136 mmol/L (135-145); Total Protein 6.8 g/dL (6.5-8.0)
[2020-10-07 04:16] LABS: B Type Natriuretic Peptide 53 pg/mL (<100); Troponin-I High Sensitivity < 3.5 ng/L (<3.5-17.0)
[2020-10-07 04:19] LABS: Acetone, serum QL Negative (Negative)
[2020-10-07 04:25] LABS: SLIDE REVIEW VERIFIED
[2020-10-07] MEDS: Piperacillin Sodium/Tazobactam 3.375 GM in 0.9 % Sodium Chloride 50 ML IV ×3 (04:40→20:10)
--- NOTE | 2020-10-07 04:44 | PC.NURSE ---
PATIENT STATING I CAN FINALLY FALL ASLEEP, YOU WOKE ME UP . STATING PAIN IS TOLERABLE ENOUGH TO SLEEP. BLOOD CULTURES OBTAINED, AND RAUL CEDENO AT BEDSIDE HANGING ANTIBIOTIC PER DR. CHAVIRA.
--- NOTE | 2020-10-07 05:23 | PM.HPGS ---
History of Present Illness History of Present Illness Date of Service: 10/07/20 Chief complaint: abdominal pain Narrative: Olive Waters is a 80 year old female who was brought to the emergency room earlier tonight because of pain. This started around 30 at night. Persisted throughout the night so she decided to the ER. She describes this as severe. She says that this was mostly in the upper abdomen but is felt diffusely. She denies any nausea or vomiting. She denies any similar episodes in the past. She denies chronic use of NSAIDs although she has history of chronic hip pain and chronic knee pain from arthritis. She states states that she is supposed to have knee replacement but she has refused this. She says she does take Tylenol for her arthritic pain. She is a long-time smoker and admits to smoking for over 40 years and says smokes at least 3/4 of a pack every day. She otherwise denies any significant GI complaints. Her states that she had a stroke last year and has some residual sided weakness. She also had a hysterectomy about 6 months ago in [facility] but does not recall the indication for this. Review of Systems Constitutional: Constitutional: Denies chills and Denies fever(s) Cardiovascular: Cardiovascular: Denies chest pain, Reports dyspnea and Reports dyspnea on exertion Respiratory: Respiratory: Reports cough, Reports dyspnea and Reports dyspnea on exertion Gastrointestinal: Gastrointestinal: Denies hematochezia and Denies change in bowel habits Genitourinary: Genitourinary: Denies hematuria Musculoskeletal: Musculoskeletal: Reports back pain, Reports arthralgias and Reports limited range of motion Neurologic: Denies focal weakness and Denies convulsions Psychiatric: Psychiatric: Denies depression and Denies mood swings [facility] Past Medical History Medical History Arthritis History of CVA (cerebrovascular accident) Hypertension, essential Pedal edema Perforated viscus Smoker Unilateral edema of lower extremity Family History Family History Father Rheumatic heart disease Hypertension Mother CVD (cardiovascular disease) Dementia Sister Breast cancer Brother No problems noted. Paternal Aunt Breast cancer Family/Other FH: mental illness Surgical History Surgical History History of arthroscopy of right knee History of bilateral cataract extraction History of tonsillectomy History of total abdominal hysterectomy and bilateral salpingo-oophorectomy History of tubal ligation S/P skin biopsy Social History Social History Alcohol intake: never Patient Tobacco Use Status: Current everyday Tobacco user Smoked in Last 30 Days: Yes Use of substances other than those prescribed or required for medical reasons: No Advance Directives: No Advance Directives Information Provided: No Meds Allergies Allergy/AdvReac Type Severity Reaction Status Date / Time Sulfa (Sulfonamide Allergy Intermediate HIVES Verified 09/18/20 11:42 Antibiotics) [SULFA (SULFONAMIDE ANTIBIOTICS)] epinephrine AdvReac Severe palpitation Verified 09/18/20 11:42 s Active Medications: Current Medications Generic Name Dose Route Start Last Admin Trade Name Freq PRN Reason Stop Dose Admin Cefazolin Sodium/Dextrose 2 gm in 50 mls @ 100 mls/hr 10/07/20 05:08 Ancef IV 10/07/20 05:37 PREOP ONE Home Medications Medication Instructions Recorded Confirmed Last Taken Type amlodipine 1 tab PO DAILY 09/13/20 09/13/20 Unknown History acetaminophen [Tylenol Extra 1,000 mg PO Q6H PRN 10/07/20 10/07/20 Unknown History Strength] Physical Exam Vital Signs: Vital Signs: Last Vital Signs Temp 99.2 F 10/07/20 05:04 Pulse 98 10/07/20 05:04 Resp 21 H 10/07/20 05:04 BP 103/56 L 10/07/20 05:04 Pulse Ox 89 L 10/07/20 05:04 Oxygen Flow Rate 2 10/07/20 02:51 Body Mass Index 34.7 Const: Other: Appears uncomfortable, a little short of breath Orientation/consciousness: patient oriented x3 Neck: Neck: Yes no lymphadenopathy Resp: Auscultation: clear to auscultation bilaterally Cardio: Rhythm: regular rhythm GI: Other: She has severe tenderness diffusely but mostly in the upper abdomen Palpation (GI): Abdominal aortic bruit present, Tenderness to palpation present (GI), no guarding and Rebound tenderness present Neuro: General: patient oriented x3 Results Results Labs: Short CBC 10/07/20 Range/Units 03:42 WBC 15.6 H (4.8-10.8) X10*3/uL Hgb 10.9 L (12.0-16.0) g/dl Hct 36.4 L (37-47) % Plt Count 401 H (160-400) X10*3/uL BMP 10/07/20 03:42 Sodium 136 Potassium 3.9 Chloride 100 Carbon Dioxide 22 BUN 23 H Creatinine 1.02 Calcium 10.1 D Liver Function 10/07/20 Range/Units 03:42 Total Bilirubin 0.4 (0.0-1.0) mg/dL Direct Bilirubin 0.3 (0.0-0.5) mg/dL AST 14 (5-31) U/L ALT 13 (0-31) U/L Alkaline Phosphatase 65 (39-117) U/L Albumin 3.8 (3.5-5.0) g/dL Urine 10/07/20 Range/Units 04:06 Urine Color YELLOW Urine Appearance CLEAR Urine pH 5.5 (5.0-8.0) Ur Specific [place] 1.015 (1.005-1.025) Urine Protein NEG (NEG-TRACE) MG/DL Urine Glucose (UA) NEG (NEG) MG/DL Abdomen CT scan report/results: report reviewed and image reviewed CT scan - chest: report reviewed and image reviewed CT scan - pelvis: report reviewed and image reviewed Assessment and Plan (1) Perforated viscus: Status: Acute [age] year female with severe abdominal pain. I have reviewed her CAT scan this shows some amount of free air in the upper abdomen. She has diverticulosis but no obvious inflammatory process in the colon. She has a perforated viscus likely from a perforated duodenal or gastric ulcer based on the CAT scan findings. She has significant pain and tenderness at this time. I explained to her therefore that it would be best to proceed with laparotomy and likely omental patching of her ulcer. I reviewed with her the technique of this procedure. I discussed the risks including but not limited to bleeding and infections, pneumonia, heart attack, strokes, bowel injury, respiratory failure and even , as well as benefits and alternatives of the procedure. She says she understands and agrees to proceed. I have discussed the above with her as well over the phone. She does not have a significant history of NSAID intake despite her chronic arthritis. The likely etiology of her perforated ulcer would be her significant and long history of smoking. (2) Smoker: Status: Acute She has emphysematous lungs on CT images.I explained to her that there is a possibility she may remain on the ventilator postop. Procedures Date of Service Date of Service: 10/07/20
[2020-10-07 05:47] LABS: Reflex Lactate? Lactic Acid Added
[2020-10-07 08:05] LABS: Reflex Lactate? 2 Y
--- NOTE | 2020-10-07 08:17 | P.BOP_ITS ---
Brief Operative Note Date of Service: 10/07/20 Pre-op diagnosis: PERFORATED VISCUS Post-op diagnosis: same (perf duodenal ulcer) Procedure: laparotomy repair of perforated duodenal ulcer with omental patch Surgeon: David Farrell MD Anesthesia: GETA Was an Circuit Manager used for this Procedure?: No Estimated blood loss (mL): 30 Pathology: none sent Condition: stable Disposition: PACU
--- NOTE | 2020-10-07 08:25 | W.PM.OPN ---
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 She had a CAT scan showing free air on the upper abdomen mostly. She was significantly tender diffusely. Her imaging studies and history were suggestive of a perforated duodenal/stomach ulcer. I explained to her that I am recommending to proceed with laparotomy and repair of this perforation. I discussed with her the technique of the planned procedure as well as the risks, benefits, and alternatives. She was also made aware that the perforation may be in a different area of the GI tract and bowel resection may also be necessary. She was brought to the operating room and placed supine on the table under general anesthesia via endotracheal tube. The Mathis catheter was in place. A surgical time-out was done. The patient received cefazolin 2 g IV preoperatively. The abdomen was prepped and draped in the usual sterile sterile fashion. A midline incision was made on the skin of the upper abdomen using a blade 10. This was carried down through the full-thickness of the skin and subcutaneous fat with electrocautery down to the fascia. The fascia was incised. The peritoneum was entered. The fascial incision was lengthened to optimize the skin incision. Immediately, thick, purulent looking fluid was seen in the peritoneum. I had to do a lot of suctioning to evacuate this murky fluid. I was eventually able to achieve visualization of the peritoneal cavity. The stomach was seen. With Duron retractors on the abdominal wall, I proceeded to examine the stomach at the anterior wall. I did not see any ulcer. We proceeded to trace this distally. There appeared to be persistent drainage of enteric contents in the upper abdomen. I had to lengthen the fascial incision for better exposure. I applied a Bear retractor gently retract the liver gently. By gently pulling down on the stomach I was able to trace this more distally and visualize the 1st part of the duodenum. We were able to then see the perforation on the 1st part of the duodenum. This about 1.5 cm in diameter. The edges appeared viable although just mildly indurated. I had to keep retraction of the distal stomach inferiorly to allow exposure of this area of the duodenum. I then examined the omentum. The patient had some induration of some areas of the omentum. I chose a segment of omentum that was mobile and this appeared to easily reach to the upper abdomen. This was therefore prepared as a patch for repair of the perforation. I then applied three full-thickness 2-0 sutures through the perforation. I left this on untied for now. I closed the perforation with another full-thickness nylon 2-0 stitch. I then pulled up the omentum that I had prepared earlier and this was positioned to cover the entire area of the perforation. I tightened the 3 sutures that were positioned earlier to keep this omentum as a patch covering the entire perforated area in place. These were tightened to secure this over the patch in such a way as not to constrict the omentum and compromise blood supply. I examined the area and copiously irrigated. An NG tube had earlier been placed at the beginning of the case. I palpated for this and made sure that this was positioned just proximal to the perforation. I examined the repair. There seemed to be no active leak anymore of enteric contents from the perforation and the omentum appeared to achieved a good seal. The rest of the adjacent stomach, and duodenum appeared unremarkable. I then did a lot of irrigation in view of the presence of murky, purulent appearing fluid. I positioned a HENRY drain just above the area of the perforation underneath the liver edge and this was brought out through an exit site on the left upper quadrant. This HENRY drain was secured to the skin with 3-0 sutures. I observed for hemostasis. Once hemostasis was ensured, I proceeded to then close the fascia with I running Maxon 1 stitch making sure that no bowel loops were being caught by the stitch. I changed gloves and irrigated the thick subcutaneous layer. And closed the skin with skin tana. I infiltrated the area of the incision with Marcaine 0.5% for postop analgesia. Dressings were then applied. Patient tolerated procedure well. There were no complications noted. Initial and final counts of sponges and instruments were correct. Estimated blood loss was about 30 cc The patient was extubated without difficulty and transferred to the recovery room with stable vital signs.
[2020-10-07] MEDS: fentaNYL citrate/PF 100 MCG/2 ML VIAL 25 MCG IVPUSH (08:36)
[2020-10-07] MEDS: Albuterol Sulfate (0.083%) 2.5 MG/3 ML VIAL.NEB INHALE (09:44)
[2020-10-07 10:31] LABS: ~Lactic Acid-LAB USE ONLY 1.2 mmol/L (0.5-2.0)
[2020-10-07] MEDS: Pantoprazole Sodium 40 MG/10 ML VIAL IVPUSH ×2 (10:41→20:44)
--- NOTE | 2020-10-07 12:14 | P.CONIM_ITS ---
History of Present Illness Data of Consult Service Date: 10/07/20 Primary Care Provider: Unknown Physician HPI Reason for consult: hypoxia 80-year-old female who presented with 1 day of sudden onset severe abdominal pain, diffuse. Denied any nausea vomiting, she takes plavix, meloxicam. In ED found to have free air on CT, concern for perforated ulcer. Patient underwent surgery with laparotomy and repair of perforated duodenal ulcer with omental patch. Course was complicated by perioperative hypoxia. Patient has severe COPD seen on CT, she is also on Lasix 40 mg b.i.d. for pedal edema without specific diagnosis of CHF. Postoperatively patient is denying any shortness of breath. She reports pain at surgical site. Denies chest pain, fever, chills. Review of Systems Review of Systems: Constitutional: Denies fever, denies Chills Eyes: denies blurry vision ENT: denies sore throat CVS: denies chest pain Respiratory: Denies dyspnea GI: abdominal pain : denies dysuria MSK: denies neck pain Skin: denies rash Neuro: denies specific motor weakness Psych: denies suicidal ideation Endocrine: denies heat/cold intoleratnce Hematologic: denies easy bleeding Allergy: denies hives PMF Medical History Arthritis History of CVA (cerebrovascular accident) Hypertension, essential Pedal edema Perforated viscus Smoker Unilateral edema of lower extremity Family History Father Rheumatic heart disease Hypertension Mother CVD (cardiovascular disease) Dementia Sister Breast cancer Brother No problems noted. Paternal Aunt Breast cancer Family/Other FH: mental illness Family history: reviewed and not pertinent Surgical History History of arthroscopy of right knee History of bilateral cataract extraction History of tonsillectomy History of total abdominal hysterectomy and bilateral salpingo-oophorectomy History of tubal ligation S/P skin biopsy Social History Alcohol intake: never Patient Tobacco Use Status: Current everyday Tobacco user Smoked in Last 30 Days: Yes Use of substances other than those prescribed or required for medical reasons: No Advance Directives: No Advance Directives Information Provided: No Meds Allergies Allergy/AdvReac Type Severity Reaction Status Date / Time Sulfa (Sulfonamide Allergy Intermediate HIVES Verified 09/18/20 11:42 Antibiotics) [SULFA (SULFONAMIDE ANTIBIOTICS)] epinephrine AdvReac Severe palpitation Verified 09/18/20 11:42 s Active Medications: Current Medications Generic Name Dose Route Start Last Admin Trade Name Freq PRN Reason Stop Dose Admin Fentanyl 25 mcg 10/07/20 06:59 10/07/20 08:36 Fentanyl Citrate/Pf 100 Mcg/2 Ml Vial IVPUSH 25 mcg Q5M PRN Administration Pain, Moderate (Pain Scale 4-6 Heparin Sodium (Porcine) 5,000 unit 10/08/20 10:15 Heparin Sodium,Porcine 5,000 Unit/Ml Vial SUBCUT Q12H DILLON Hydromorphone HCl 0.25 mg 10/07/20 06:59 Hydromorphone Hcl 0.5 Mg/0.5 Ml Syringe IVPUSH Q5M PRN Pain, Severe (Pain Scale 7-10) Piperacillin Sod/Tazobactam 50 mls @ 100 mls/hr 10/07/20 08:15 10/07/20 10:34 Sod 3.375 gm/ Sodium Chloride IV Not Given Q6H DILLON Lactated Ringer's 1,000 mls @ 100 mls/hr 10/07/20 08:15 10/07/20 10:33 Lr IVCONT Not Given .Q10H [facility] Acetaminophen 1,000 mg in 100 mls @ 400 mls/hr 10/07/20 09:15 10/07/20 10:34 Ofirmev IV 10/08/20 03:29 Infused Q6H [facility] Infusion Morphine Sulfate 3 mg 10/07/20 09:15 Morphine Sulfate 4 Mg/Ml Cartridge IVPUSH Q3H PRN Pain, Severe (Pain Scale 7-10) Ondansetron HCl 4 mg 10/07/20 06:59 Ondansetron Hcl 4 Mg/2 Ml Vial IVPUSH ONCE PRN Nausea and Vomiting Ondansetron HCl 4 mg 10/07/20 09:15 Ondansetron Hcl 4 Mg/2 Ml Vial IVPUSH Q8H PRN nausea Pantoprazole Sodium 40 mg 10/07/20 09:00 10/07/20 10:41 Pantoprazole Sodium 40 Mg/10 Ml Vial IVPUSH 40 mg BID DILLON Administration Home Medications Medication Instructions Recorded Confirmed Last Taken Type amlodipine 1 tab PO DAILY 09/13/20 09/13/20 Unknown History acetaminophen [Tylenol Extra 1,000 mg PO Q6H PRN 10/07/20 10/07/20 Unknown History Strength] Physical Exam Vital Signs and Narrative: Vital Signs: Last Vital Signs Temp 98.2 F 10/07/20 11:38 Pulse 102 H 10/07/20 11:38 Resp 18 10/07/20 11:38 BP 122/66 10/07/20 11:38 Pulse Ox 88 L 10/07/20 11:38 Oxygen Flow Rate 2 10/07/20 02:51 Body Mass Index 34.7 General: Appears to be in some pain, groggy but awake and conversational HEENT: atraumatic Neck: normal to visual inspection CVS: S1, S2, RRR Resp: Diminished Chest: non tender GI: Postop, deferred : no CVA tenderness Skin: no rashes Extremities: no edema Neuro: Oriented X3, mild right hemiparesis Psych: cooperative Results Labs CBC and Chem 7: 10/07/20 03:42 10/07/20 03:42 Labs: Laboratory Results - last 24 hr 10/07/20 10/07/20 10/07/20 03:42 03:42 03:42 MCV 82.2 MCH 24.6 L MCHC 29.9 L RDW 19.5 H Plt Count 401 H MPV 9.0 L Immature Gran % (Auto) 0.3 Neut % (Auto) 92.8 H Lymph % (Auto) 4.5 L [place] % (Auto) 2.1 Eos % (Auto) 0.1 Baso % (Auto) 0.2 Lymph # (Auto) 0.7 L [place] # (Auto) 0.3 Eos # (Auto) 0.0 Baso # (Auto) 0.0 Abs Immat Gran (auto) 0.05 H Absolute Neuts (auto) 14.5 H Absolute Nucleated RBC 0.000 Nucleated RBC % (auto) 0.0 Smear Tech's Comments VERIFIED PT 15.0 H INR 1.3 H VBG pH VBG pCO2 VBG pO2 VBG HCO3 VBG O2 Saturation VBG Base Excess Anion Gap 18 Estim Creat Clear Calc 46.2 Estimated GFR 52 Random Glucose 212 H Lactic Acid Lactic Acid Fup @ 2Hr Lactic Acid Fup @ 4Hr Calcium 10.1 D Total Bilirubin 0.4 Direct Bilirubin 0.3 AST 14 ALT 13 Alkaline Phosphatase 65 Troponin I High Sens B-Natriuretic Peptide Total Protein 6.8 Albumin 3.8 Lipase Urine Color Urine Appearance Urine pH Ur Specific [place] Urine Protein Urine Glucose (UA) Urine Ketones Urine Blood Urine Nitrite Ur Leukocyte Esterase Acetone, Qual COVID-19 (MARTINA) COVID-19 Happy Metrix Com Blood Type Antibody Screen 10/07/20 10/07/20 10/07/20 03:42 03:42 03:42 MCV MCH MCHC RDW Plt Count MPV Immature Gran % (Auto) Neut % (Auto) Lymph % (Auto) [place] % (Auto) Eos % (Auto) Baso % (Auto) Lymph # (Auto) [place] # (Auto) Eos # (Auto) Baso # (Auto) Abs Immat Gran (auto) Absolute Neuts (auto) Absolute Nucleated RBC Nucleated RBC % (auto) Smear Tech's Comments PT INR VBG pH VBG pCO2 VBG pO2 VBG HCO3 VBG O2 Saturation VBG Base Excess Anion Gap Estim Creat Clear Calc Estimated GFR Random Glucose Lactic Acid 2.7 H* Lactic Acid Fup @ 2Hr Lactic Acid Fup @ 4Hr Calcium Total Bilirubin Direct Bilirubin AST ALT Alkaline Phosphatase Troponin I High Sens < 3.5 B-Natriuretic Peptide 53 Total Protein Albumin Lipase 53 Urine Color Urine Appearance Urine pH Ur Specific [place] Urine Protein Urine Glucose (UA) Urine Ketones Urine Blood Urine Nitrite Ur Leukocyte Esterase Acetone, Qual COVID-19 (MARTINA) COVID-19 Happy Metrix Com Blood Type Antibody Screen 10/07/20 10/07/20 10/07/20 03:42 03:43 03:45 MCV MCH MCHC RDW Plt Count MPV Immature Gran % (Auto) Neut % (Auto) Lymph % (Auto) [place] % (Auto) Eos % (Auto) Baso % (Auto) Lymph # (Auto) [place] # (Auto) Eos # (Auto) Baso # (Auto) Abs Immat Gran (auto) Absolute Neuts (auto) Absolute Nucleated RBC Nucleated RBC % (auto) Smear Tech's Comments PT INR VBG pH 7.32 VBG pCO2 36 VBG pO2 42 VBG HCO3 19 L VBG O2 Saturation 68.0 VBG Base Excess -6.0 Anion Gap Estim Creat Clear Calc Estimated GFR Random Glucose Lactic Acid Lactic Acid Fup @ 2Hr Lactic Acid Fup @ 4Hr Calcium Total Bilirubin Direct Bilirubin AST ALT Alkaline Phosphatase Troponin I High Sens B-Natriuretic Peptide Total Protein Albumin Lipase Urine Color Urine Appearance Urine pH Ur Specific [place] Urine Protein Urine Glucose (UA) Urine Ketones Urine Blood Urine Nitrite Ur Leukocyte Esterase Acetone, Qual Negative COVID-19 (MARTINA) Negative COVID-19 Clin Com See Note Blood Type Antibody Screen 10/07/20 10/07/20 10/07/20 03:46 04:06 05:59 MCV MCH MCHC RDW Plt Count MPV Immature Gran % (Auto) Neut % (Auto) Lymph % (Auto) [place] % (Auto) Eos % (Auto) Baso % (Auto) Lymph # (Auto) [place] # (Auto) Eos # (Auto) Baso # (Auto) Abs Immat Gran (auto) Absolute Neuts (auto) Absolute Nucleated RBC Nucleated RBC % (auto) Smear Tech's Comments PT INR VBG pH VBG pCO2 VBG pO2 VBG HCO3 VBG O2 Saturation VBG Base Excess Anion Gap Estim Creat Clear Calc Estimated GFR Random Glucose Lactic Acid Lactic Acid Fup @ 2Hr 2.4 H* Lactic Acid Fup @ 4Hr Calcium Total Bilirubin Direct Bilirubin AST ALT Alkaline Phosphatase Troponin I High Sens B-Natriuretic Peptide Total Protein Albumin Lipase Urine Color YELLOW Urine Appearance CLEAR Urine pH 5.5 Ur Specific [place] 1.015 Urine Protein NEG Urine Glucose (UA) NEG Urine Ketones NEG Urine Blood NEG Urine Nitrite NEG Ur Leukocyte Esterase NEG Acetone, Qual COVID-19 ([facility]ARTINA) COVID-19 Clin Com Blood Type O Positive Antibody Screen NEGATIVE 10/07/20 09:52 MCV MCH MCHC RDW Plt Count MPV Immature Gran % (Auto) Neut % (Auto) Lymph % (Auto) [place] % (Auto) Eos % (Auto) Baso % (Auto) Lymph # (Auto) [place] # (Auto) Eos # (Auto) Baso # (Auto) Abs Immat Gran (auto) Absolute Neuts (auto) Absolute Nucleated RBC Nucleated RBC % (auto) Smear Tech's Comments PT INR VBG pH VBG pCO2 VBG pO2 VBG HCO3 VBG O2 Saturation VBG Base Excess Anion Gap Estim Creat Clear Calc Estimated GFR Random Glucose Lactic Acid Lactic Acid Fup @ 2Hr Lactic Acid Fup @ 4Hr 1.2 Calcium Total Bilirubin Direct Bilirubin AST ALT Alkaline Phosphatase Troponin I High Sens B-Natriuretic Peptide Total Protein Albumin Lipase Urine Color Urine Appearance Urine pH Ur Specific [place] Urine Protein Urine Glucose (UA) Urine Ketones Urine Blood Urine Nitrite Ur Leukocyte Esterase Acetone, Qual COVID-19 (MARTINA) COVID-19 Clin Com Blood Type Antibody Screen Imaging Radiologist's Impressions: Impressions Abdomen/Pelvis CT 10/07/20 02:53 IMPRESSION: Pneumoperitoneum. This is of uncertain source. Consider gastric or duodenal ulcer. This critical result was discussed with Elba Morgan MD by telephone at 10/07/2020 3:33 AM and it was ascertained that the content and urgency of the report was understood at the time of direct communication. Chest CTA 10/07/20 02:56 IMPRESSION: 1. No pulmonary embolism. 2. Severe emphysema. No acute pulmonary finding. 3. Pneumoperitoneum. This was previously discussed with Dr. Morgan on the abdominal CT. VTE: negative Assessment and Plan (1) Perforated viscus: Status: Acute 80F presented with perforated duodenal ulcer, course complicated by acute hypoxic respiratory failure Acute hypoxic respiratory failure Likely due to poor inspiratory effort from pain and anesthesia in the setting of severe emphysema Continues pulse ox, goal saturation low 90s Check chest x-ray for fluid overload Perforated duodenal ulcer Management per surgery Hypertension Hold amlodipine perioperatively Pedal edema ? Underlying CHF undiagnosed versus pulmonary hypertension/right-sided failure from severe emphysema Check echo Holding Lasix for now while NPO History of CVA Hold Plavix - restart when okay with surgery Unclear if was on aspirin, last filled November 2019, no need for dual antiplatelet Restart statin when taking orals
[2020-10-07 12:50] LABS: ABG Refer to POC result
[2020-10-07 12:51] LABS: ABG Base Excess -1.7 mmol/L; ABG HCO3 23 mmol/L (22-26); ABG pCO2 42 mmHg (32-45); ABG pCO2 TC 42 mmHg (32-45); ABG pH 7.35 (7.35-7.45); ABG pH TC 7.35 (7.35-7.45); ABG pO2 53 mmHg (83-108); ABG pO2 TC 52 (83-108)
--- NOTE | 2020-10-07 14:00 | CA_ITS ---
Transthoracic Echocardiogram Patient (Last, First, Middle): Olive Waters, Gender: Female Date of : 1940 Age: 80 Procedure Date: 10/07/2020 Procedure Type: Transthoracic Echocardiogram Location: S3E Height: 157.48 cm Weight: 86.18 kg BSA: 1.87 m2 Heart Rate: bpm BP: 132 / 84 mmHg Quality Worker: Referring MD: Ishaan Perez MD Symptoms: pedal edema, sob Study Quality: Fair ECG Rhythm: Sinus Conclusions: - The left ventricular systolic function is normal. The visually estimated ejection fraction is between 65-70%. - No obvious valvular pathology seen on this study. - Mild pulmonary hypertension is present. - The inferior vena cava is dilated and collapses less than 50% with inspiration. Findings Left Ventricle Normal left ventricular cavity size. There is mildly increased left ventricular wall thickness. The left ventricular systolic function is normal. The visually estimated ejection fraction is between 65-70%. There is no evidence of regional wall motion abnormalities. E/E prime ratio is <8, consistent with normal filling pressures. Evidence suggests grade I (mild) diastolic dysfunction. Right Ventricle Normal right ventricular cavity size and systolic function. Atria The left atrium is normal in size. The right atrium is normal in size. Aortic Valve There is a normal trileaflet aortic valve. There is no aortic valve stenosis. There is no aortic valve regurgitation. Mitral Valve The mitral valve appears normal. There is trace mitral valve regurgitation. There is no mitral valve stenosis. Pulmonic Valve The pulmonic valve was not well visualized. Tricuspid Valve Normal tricuspid valve structure. There is trace tricuspid valve regurgitation. The right ventricular systolic pressure is 37 mmHg. Mild pulmonary hypertension is present. Great Vessels The aortic annulus, sinuses of valsalva, and asc aorta are normal in size. Venous The inferior vena cava is dilated and collapses less than 50% with inspiration. Pericardium/Pleural There is no evidence of pericardial effusion. Prior Study Comparison No prior study available for comparison. Recommendations, Care & Conclusions No obvious valvular pathology seen on this study. Measurements 2D Linear Measurements IVSd: 1.25 0.6-0.9/0.6-1.0 cm LVIDd: 3.61 3.9-5.3/4.2-5.9 cm LVIDd Index: 1.93 2.4-3.2/2.2-3.1 cm/m2 LVIDs: 2.26 2.0-3.6 cm LVPWd: 1.23 0.7-1.1 cm Ao Root: 3.10 2.1-3.5 cm LA Diam: 3.60 2.7-3.8/3.0-4.0 cm LAIDs Index: 1.93 1.5-2.3 cm/m2 LV Mass: 185.97 67-162/88-224 g LV Mass Index: 99.45 43-95/49-115 g/m2 LVOT Diam: 2.00 3.0+(-)1.3 cm Mitral Valve MV Pk E: 0.60 MV PK A: 0.96 MV Decel Time: 157.00 E/A: 0.60 E'Lateral: 7.40 E'Medial: 7.07 E/E' Med: 8.40 E/E' Lat: 8.10 PHT: 46.00 MVA PHT: 4.78 Decel Spink: 3.80 Aortic Valve AoV Pk Sohan: 1.82 AoV Mn Sohan: 0.93 AoV VTI: 0.31 AoV Pk Grad: 13.00 Aov Mn Grad: 5.00 KADE Cont.VTI: 1.98 LVOT LVOT Pk Sohan: 0.98 LVOT Mn Sohan: 0.71 LVOT VTI: 0.20 LVOT Pk Grad: 4.00 LVOT Mn Grad: 2.00 LVOT Diam: 2.00 LVOT Area: 3.14 Diastolic Function MV Pk E: 0.60 MV Pk A: 0.96 E/A: 0.60 E'Medial: 7.07 E/E' Med: 8.40 E' Laterial: 7.40 E/E' Lat: 8.10 Tricuspid Valve TR Pk Sohan: 2.35 TR Pk Grad: 22.00 RA Press: 15.00 RVSP: 37.00 Great Vessels Aorta Ao Root-2D: 3.10 2.0-3.7 cm Ao Asc: 3.30 2.1-3.4 cm Pulmonary Valve PV Pk Sohan: 1.02 Peak PV Grad: 4.00 Updated in Other Vendor System with Status of Final Hi Carvalho MD electronically signed on 10/08/2020 9:38:50 AM with status of Final
--- NOTE | 2020-10-07 14:39 | PM.EVENT ---
Event Note Date of Service: 10/07/20 Event Note: Seen postop Underwent laparotomy, omental patch for perforated duodenal ulcer earlier Stable vital sign A little drowsy but arousable Abdomen soft Good urine output Pain management PPI Incentive spirometry updated by phone
[2020-10-07] MEDS: Furosemide 100 MG/10 ML VIAL 60 MG IVPUSH (15:38)
[2020-10-07] MEDS: Morphine Sulfate 2 MG/ML CARTRIDGE IVPUSH ×2 (17:12→21:39)
[2020-10-07] MEDS: Albuterol/Iprat 2.5/0.5MG 3 ML AMPUL.NEB INHALE (19:42)
[2020-10-07] MEDS: Acetylcysteine 10 % 400 MG/4 ML VIAL INHALE (19:42)
[2020-10-07 21:36] LABS: ~Lactic Acid-LAB USE ONLY 2.4 mmol/L (0.5-2.0)
[2020-10-08] VITALS (17 sets, daily range): BP systolic 104–144; BP diastolic 55–78; PULSE 61–86; RESP 14–24; TEMP 35.8–36.8; O2SAT 91–97
[2020-10-08] MEDS: Lactated Ringers 1,000 ML 100 ML IVCONT ×2 (00:24→14:06)
[2020-10-08] MEDS: Piperacillin Sodium/Tazobactam 3.375 GM in 0.9 % Sodium Chloride 50 ML IV ×4 (02:14→20:34)
[2020-10-08] MEDS: Morphine Sulfate 2 MG/ML CARTRIDGE IVPUSH ×4 (04:08→21:10)
[2020-10-08] MEDS: Albuterol/Iprat 2.5/0.5MG 3 ML AMPUL.NEB INHALE ×4 (07:21→20:19)
[2020-10-08] MEDS: Acetylcysteine 10 % 400 MG/4 ML VIAL INHALE ×4 (07:21→20:19)
[2020-10-08 07:31] LABS: Anion Gap 12 (12-20); Blood Urea Nitrogen 23 mg/dL (9-16); Calcium 8.1 mg/dL (8.4-10.2); Carbon Dioxide 25 mmol/L (22-29); Chloride 105 mmol/L (96-108); Creatinine Clr Calc Pharmacy 54.2; Estimated Glomerular Filt Rate > 60; Glucose Random 123 mg/dL (60-115); Potassium 3.9 mmol/L (3.3-5.1); Sodium 138 mmol/L (135-145)
[2020-10-08 07:35] LABS: B Type Natriuretic Peptide 167 pg/mL (<100)
--- NOTE | 2020-10-08 07:41 | PM.PNGS ---
Subjective Subjective Date of Service: 10/08/20 Interval history: Placed on high-flow O2 last night because of poor O2 sats Did well overnight Pain seems well controlled No events reported Physical Exam Vital Signs: Vital Signs: Last Vital Signs Temp 97.4 F 10/08/20 03:21 Pulse 73 10/08/20 07:26 Resp 20 10/08/20 07:28 BP 104/55 L 10/08/20 03:21 Pulse Ox 94 10/08/20 04:44 Oxygen Flow Rate 2 10/07/20 02:51 Body Mass Index 34.7 Laboratory Results - last 24 hr 10/07/20 10/07/20 10/07/20 05:59 09:52 12:44 O2 Saturation 81.0 ABG pH at Pt Temp 7.35 ABG pH (Temp Corre ct) 7.35 ABG pCO2 at Pt Tem p 42 ABG pCO2 (Temp Cor rct 42 ABG pO2 at Pt Temp 53 L ABG pO2 (Temp Jason ect 52 L ABG HCO3 23 ABG Base Excess (A ctual) -1.7 Sodium Potassium Chloride Carbon Dioxide Anion Gap BUN Creatinine Estim Creat Clear Calc Estimated GFR Random Glucose Lactic Acid Fup @ 2Hr 2.4 H* Lactic Acid Fup @ 4Hr 1.2 Calcium B-Natriuretic Pept stacie 10/08/20 10/08/20 06:07 06:07 O2 Saturation ABG pH at Pt Temp ABG pH (Temp Corre ct) ABG pCO2 at Pt Tem p ABG pCO2 (Temp Cor rct ABG pO2 at Pt Temp ABG pO2 (Temp Jason ect ABG HCO3 ABG Base Excess (A ctual) Sodium 138 Potassium 3.9 Chloride 105 Carbon Dioxide 25 Anion Gap 12 BUN 23 H Creatinine 0.87 Estim Creat Clear Calc 54.2 Estimated GFR > 60 Random Glucose 123 H D Lactic Acid Fup @ 2Hr Lactic Acid Fup @ 4Hr Calcium 8.1 L D B-Natriuretic Pept stacie 167 H Const: Other: Appears comfortable Resp: Other: Breath sounds with some rhonchi Cardio: Rhythm: regular rhythm GI: Other: Soft, dressings dry, HENRY drain serosanguineous, scanty, NG tube output with low volume, bilious Progress Note: A&P Assessment and plan (1) Perforated viscus: Status: Acute Assessment and Plan: Status post repair of duodenal perforation with omental patch Did well overnight Has COPD - O2 sats maintained on high-flow oxygen Instructed on incentive spirometry Out of bed to chair SHAJI Mathis today Pain management Keep NG tube in Appreciate hospitalist input Fall Risk Details Current Medications: Current Medications Generic Name Dose Route Start Last Admin Trade Name Freq PRN Reason Stop Dose Admin Acetylcysteine 400 mg 10/07/20 20:00 10/08/20 07:21 Acetylcysteine 10 % 400 Mg/4 Ml Vial INHALE 10/09/20 06:00 400 mg RQ4H WHILE AWAKE DILLON Administration Albuterol/Ipratropium 3 ml 10/07/20 20:00 10/08/20 07:21 Albuterol/Iprat 2.5/0.5mg 3 Ml Ampul.Neb INHALE 3 ml RQ4H WHILE AWAKE DILLON Administration Fentanyl 25 mcg 10/07/20 06:59 10/07/20 08:36 Fentanyl Citrate/Pf 100 Mcg/2 Ml Vial IVPUSH 25 mcg Q5M PRN Administration Pain, Moderate (Pain Scale 4-6 Heparin Sodium (Porcine) 5,000 unit 10/08/20 10:15 Heparin Sodium,Porcine 5,000 Unit/Ml Vial SUBCUT Q12H DILLON Hydromorphone HCl 0.25 mg 10/07/20 06:59 Hydromorphone Hcl 0.5 Mg/0.5 Ml Syringe IVPUSH Q5M PRN Pain, Severe (Pain Scale 7-10) Piperacillin Sod/Tazobactam 50 mls @ 100 mls/hr 10/07/20 08:15 10/08/20 02:47 Sod 3.375 gm/ Sodium Chloride IV Infused Q6H DILLON Infusion Lactated Ringer's 1,000 mls @ 100 mls/hr 10/07/20 08:15 10/08/20 00:24 Lr IVCONT 100 mls/hr .Q10H DILLON Administration Morphine Sulfate 2 mg 10/07/20 17:01 10/08/20 04:08 Morphine Sulfate 2 Mg/Ml Cartridge IVPUSH 2 mg Q3H PRN Administration Pain, Severe (Pain Scale 7-10) Nicotine 14 mg 10/08/20 09:00 Nicotine 14 Mg Patch.Td24 TRANSDERMA DAILY DILLON Ondansetron HCl 4 mg 10/07/20 06:59 Ondansetron Hcl 4 Mg/2 Ml Vial IVPUSH ONCE PRN Nausea and Vomiting Ondansetron HCl 4 mg 10/07/20 09:15 Ondansetron Hcl 4 Mg/2 Ml Vial IVPUSH Q8H PRN nausea Pantoprazole Sodium 40 mg 10/07/20 09:00 10/07/20 20:44 Pantoprazole Sodium 40 Mg/10 Ml Vial IVPUSH 40 mg BID DILLON Administration Time Spent With Patient Time: Total time spent is greater than 50% in coordination of care (as documented) at patient's floor/unit and/or counseling patient: Time with patient: 15 - 24 minutes Procedures Date of Service Date of Service: 10/08/20
[2020-10-08 07:50] LABS: Hematocrit 27.2 % (37-47); Mean Corpuscular HGB Conc 29.4 g/dl (31.0-35.0); Mean Corpuscular Hemoglobin 24.1 pg (27.0-33.0); Mean Corpuscular Volume 81.9 fL (80-98); Mean Platelet Volume 9.7 fL (9.4-12.3); Platelet Count 360 X10*3/uL (160-400); Red Blood Count 3.32 X10*6/uL (4.20-5.50); Red Cell Distribution Width 19.6 % (11.0-16.0); White Blood Count 16.9 X10*3/uL (4.8-10.8)
[2020-10-08] MEDS: Nicotine 14 MG PATCH.TD24 TRANSDERMA (08:30)
[2020-10-08] MEDS: Pantoprazole Sodium 40 MG/10 ML VIAL IVPUSH ×2 (08:31→20:30)
--- NOTE | 2020-10-08 08:49 | P.PNIM_ITS ---
Subjective Subjective Date of Service: 10/08/20 Interval History: high flow is bothering her, but otherwise minimal sob, some pain at surgical site Cardiovascular Cardiovascular: Reports no additional cardiovascular complaints Gastrointestinal Gastrointestinal: Reports no additional gastrointestinal complaints Physical Exam Vital Signs: Vital Signs: Last Vital Signs Temp 96.9 F 10/08/20 08:00 Pulse 72 10/08/20 08:00 Resp 20 10/08/20 08:00 BP 118/63 10/08/20 08:00 Pulse Ox 96 10/08/20 08:00 Oxygen Flow Rate 2 10/07/20 02:51 Body Mass Index 34.7 General: AO X 3, in some discomfort, no respiratory distress Resp: diminished CVS: S1,S2,RRR GI: deferrred Neuro: motor grossly intact Psych: appropriate affect Objective Data Current Medications Generic Name Dose Route Start Last Admin Trade Name Freq PRN Reason Stop Dose Admin Acetylcysteine 400 mg 10/07/20 20:00 10/08/20 07:21 Acetylcysteine 10 % 400 Mg/4 Ml Vial INHALE 10/09/20 06:00 400 mg RQ4H WHILE AWAKE DILLON Administration Albuterol/Ipratropium 3 ml 10/07/20 20:00 10/08/20 07:21 Albuterol/Iprat 2.5/0.5mg 3 Ml Ampul.Neb INHALE 3 ml RQ4H WHILE AWAKE DILLON Administration Fentanyl 25 mcg 10/07/20 06:59 10/07/20 08:36 Fentanyl Citrate/Pf 100 Mcg/2 Ml Vial IVPUSH 25 mcg Q5M PRN Administration Pain, Moderate (Pain Scale 4-6 Heparin Sodium (Porcine) 5,000 unit 10/08/20 10:15 Heparin Sodium,Porcine 5,000 Unit/Ml Vial SUBCUT Q12H DILLON Hydromorphone HCl 0.25 mg 10/07/20 06:59 Hydromorphone Hcl 0.5 Mg/0.5 Ml Syringe IVPUSH Q5M PRN Pain, Severe (Pain Scale 7-10) Piperacillin Sod/Tazobactam 50 mls @ 100 mls/hr 10/07/20 08:15 10/08/20 08:26 Sod 3.375 gm/ Sodium Chloride IV 100 mls/hr Q6H DILLON Administration Lactated Ringer's 1,000 mls @ 100 mls/hr 10/07/20 08:15 10/08/20 00:24 Lr IVCONT 100 mls/hr .Q10H DILLON Administration Morphine Sulfate 2 mg 10/07/20 17:01 10/08/20 04:08 Morphine Sulfate 2 Mg/Ml Cartridge IVPUSH 2 mg Q3H PRN Administration Pain, Severe (Pain Scale 7-10) Nicotine 14 mg 10/08/20 09:00 10/08/20 08:30 Nicotine 14 Mg Patch.Td24 TRANSDERMA 14 mg DAILY DILLON Administration Ondansetron HCl 4 mg 10/07/20 06:59 Ondansetron Hcl 4 Mg/2 Ml Vial IVPUSH ONCE PRN Nausea and Vomiting Ondansetron HCl 4 mg 10/07/20 09:15 Ondansetron Hcl 4 Mg/2 Ml Vial IVPUSH Q8H PRN nausea Pantoprazole Sodium 40 mg 10/07/20 09:00 10/08/20 08:31 Pantoprazole Sodium 40 Mg/10 Ml Vial IVPUSH 40 mg BID DILLON Administration Labs CBC & Chem 7: 10/08/20 06:07 10/08/20 06:07 Microbiology Microbiology Results: Microbiology 10/07/20 04:40 Blood - Venous Blood Culture - Preliminary No growth after 24 hours. 10/07/20 04:40 Blood - Venous Blood Culture - Preliminary No growth after 24 hours. Assessment and Plan (1) Acute respiratory failure with hypoxia: Status: Acute (2) COPD (chronic obstructive pulmonary disease): Status: Acute (3) Atelectasis: Status: Acute Assessment and Plan: 80F presented with perforated duodenal ulcer, course complicated by acute hypoxic respiratory failure Acute hypoxic respiratory failure Likely due to poor inspiratory effort/ mucus plugging/atelecatasis in the s etting of severe emphysema some improvement today wean high flow, incentive spirometry, duonebs, flutter valve follow up repeat cxr pulm eval Perforated duodenal ulcer Management per surgery Hypertension Hold amlodipine perioperatively bp low-normal History of CVA Unclear if was on aspirin or plavix - restart when ok with surgery Restart statin when taking orals
[2020-10-08] MEDS: Heparin Sodium,Porcine 5,000 UNIT/ML VIAL 5000 UNIT SUBCUT ×2 (09:31→20:28)
--- NOTE | 2020-10-08 09:44 | MHC.CM.PN ---
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 PT REPORTS SHE HAS A HCP, COPY REQUESTED. D/C PLAN: HOME VS W/[facility], FAMILY FOR TRANSPORT. PCP: REYES FERNANDO HCP: JORDEN PEREIRA (SPOUSE) [phone] ALTERNATE MRALENE TYLER [phone]
--- NOTE | 2020-10-08 10:26 | PM.CNPUL ---
History of Present Illness History of Present Illness Consult date: 10/08/20 Chief complaint: abdominal pain Narrative: 80-year-old female, tobacco smoker, who presented with 1 day of sudden onset severe abdominal pain, diffuse. Denied any nausea vomiting, she takes plavix, meloxicam. In ED found to have free air on CT, concern for perforated ulcer. Patient underwent surgery with laparotomy and repair of perforated duodenal ulcer with omental patch on 10/07/2020. She had GEA and was able to get extubated afterwards. No complications noted exept some intraoperative hypoxia. POD#0 the patioent became more hypoxic. hypoxia. ABG done with PaO2 in the 50's. She underwent a CTA which was negative for PE, but did have moderate emphysema and a small patchy airspace disease in the RLL. She givem Lasix 40 mg b.i.d. for pedal edema without specific diagnosis of CHF. Currently she is on HF. Has alot of epigastric pain that does not allow her to cough. Her ISS is 500ml. Her CXR personally reviewd with significant hypoexpansion and bibasilar opacities. On exam she does have bronchial BS on the Right base. Review of Systems Constitutional: Constitutional: Denies night sweats ENT: Denies change in voice, Denies lip swelling, Denies mouth pain, Reports nasal congestion, Reports nasal discharge, Denies tongue swelling and Reports other (NGT with bilious drainage) Cardiovascular: Cardiovascular: Denies chest pain Respiratory: Respiratory: Reports cough, Reports pain with cough and Denies wheezing Gastrointestinal: Gastrointestinal: Reports abdominal pain Musculoskeletal: Musculoskeletal: Denies no additional musculoskeletal complaints Neurologic: Denies Neuro-related abnormal movements Psychiatric: Psychiatric: Denies no additional psychiatric complaints Hematologic/Lymphatic: Hematologic/Lymphatic: Denies easy bleeding and Denies lymphadenopathy Allergic/Immunologic: Allergic/Immunologic: Denies lip swelling, Denies tongue swelling and Denies wheezing PMFSH Past Medical History Medical History Arthritis History of CVA (cerebrovascular accident) Hypertension, essential Pedal edema Perforated viscus Smoker Unilateral edema of lower extremity Family History Family History Father Rheumatic heart disease Hypertension Mother CVD (cardiovascular disease) Dementia Sister Breast cancer Brother No problems noted. Paternal Aunt Breast cancer Family/Other FH: mental illness Family history: reviewed and not pertinent Surgical History Surgical History History of arthroscopy of right knee History of bilateral cataract extraction History of tonsillectomy History of total abdominal hysterectomy and bilateral salpingo-oophorectomy History of tubal ligation S/P skin biopsy Social History Social History Household Members: Spouse Housing: House Do you presently have visiting nurse or other home services: Yes Alcohol intake: never Patient Tobacco Use Status: Current everyday Tobacco user Tobacco use type: Cigarette Cigarette Packs Per Day: 1 Cigarettes Per Day: 20.0 Smoked in Last 30 Days: Yes Patient Interested in Nicotine Replacement: Yes Patient Given Instructions on How to Stop Smoking: No Use of substances other than those prescribed or required for medical reasons: No Currently Displaying Signs/Symptoms of Drug Intoxication Withdrawal: No Have you been hit, kicked, punched, or otherwise hurt by someone within the past year? If so, by whom?: No Do you feel safe in your current relationship?: Yes Is there a partner from a previous relationship who is making you feel unsafe now?: No Are you made to feel afraid or neglected: No Advance Directives: No Advance Directives Information Provided: No Do you have thoughts of harming others: None Do you have a plan to hurt others: No Plan Recently lost weight without trying: No Eating poorly because of decreased appetite: No Nutrition Risks: No Nutritional Risk Patient : No : No Poor oral hygiene: No service: No Current occupational status: retired Meds Allergies Allergy/AdvReac Type Severity Reaction Status Date / Time Sulfa (Sulfonamide Allergy Intermediate HIVES Verified 09/18/20 11:42 Antibiotics) [SULFA (SULFONAMIDE ANTIBIOTICS)] epinephrine AdvReac Severe palpitation Verified 09/18/20 11:42 s Active Medications: Current Medications Generic Name Dose Route Start Last Admin Trade Name Freq PRN Reason Stop Dose Admin Acetylcysteine 400 mg 10/07/20 20:00 10/08/20 07:21 Acetylcysteine 10 % 400 Mg/4 Ml Vial INHALE 10/09/20 06:00 400 mg RQ4H WHILE AWAKE DILLON Administration Albuterol/Ipratropium 3 ml 10/07/20 20:00 10/08/20 07:21 Albuterol/Iprat 2.5/0.5mg 3 Ml Ampul.Neb INHALE 3 ml RQ4H WHILE AWAKE DILLON Administration Fentanyl 25 mcg 10/07/20 06:59 10/07/20 08:36 Fentanyl Citrate/Pf 100 Mcg/2 Ml Vial IVPUSH 25 mcg Q5M PRN Administration Pain, Moderate (Pain Scale 4-6 Heparin Sodium (Porcine) 5,000 unit 10/08/20 10:15 10/08/20 09:31 Heparin Sodium,Porcine 5,000 Unit/Ml Vial SUBCUT 5,000 unit Q12H DILLON Administration Hydromorphone HCl 0.25 mg 10/07/20 06:59 Hydromorphone Hcl 0.5 Mg/0.5 Ml Syringe IVPUSH Q5M PRN Pain, Severe (Pain Scale 7-10) Piperacillin Sod/Tazobactam 50 mls @ 100 mls/hr 10/07/20 08:15 10/08/20 08:59 Sod 3.375 gm/ Sodium Chloride IV Infused Q6H DILLON Infusion Lactated Ringer's 1,000 mls @ 100 mls/hr 10/07/20 08:15 10/08/20 10:25 Lr IVCONT 100 mls/hr .Q10H DILLON Infusion Morphine Sulfate 2 mg 10/07/20 17:01 10/08/20 09:28 Morphine Sulfate 2 Mg/Ml Cartridge IVPUSH 2 mg Q3H PRN Administration Pain, Severe (Pain Scale 7-10) Nicotine 14 mg 10/08/20 09:00 10/08/20 08:30 Nicotine 14 Mg Patch.Td24 TRANSDERMA 14 mg DAILY DILLON Administration Ondansetron HCl 4 mg 10/07/20 06:59 Ondansetron Hcl 4 Mg/2 Ml Vial IVPUSH ONCE PRN Nausea and Vomiting Ondansetron HCl 4 mg 10/07/20 09:15 Ondansetron Hcl 4 Mg/2 Ml Vial IVPUSH Q8H PRN nausea Pantoprazole Sodium 40 mg 10/07/20 09:00 10/08/20 08:31 Pantoprazole Sodium 40 Mg/10 Ml Vial IVPUSH 40 mg BID DILLON Administration Home Medications Medication Instructions Recorded Confirmed Last Taken Type amlodipine [Norvasc] 1 tab PO DAILY 09/13/20 10/07/20 10/05/20 09:00 History acetaminophen [Tylenol Extra 1,000 mg PO Q6H PRN 10/07/20 10/07/20 10/05/20 19:00 History Strength] aspirin 81 mg PO DAILY 10/07/20 10/07/20 10/05/20 History calcium phos,dibas-vitamin D3 400 tab PO DAILY 10/07/20 10/07/20 10/04/20 09:00 History [Vitamin D (with calcium)] furosemide [Lasix] 40 mg PO BID 10/07/20 10/07/20 Unknown History Physical Exam Vital Signs: Vital Signs: Last Vital Signs Temp 96.9 F 10/08/20 08:00 Pulse 72 10/08/20 08:00 Resp 20 10/08/20 08:00 BP 118/63 10/08/20 08:00 Pulse Ox 96 10/08/20 08:00 Oxygen Flow Rate 2 10/07/20 02:51 Body Mass Index 34.7 Const: General: alert HENMT: General nose exam: Other nasal findings present Neck: Neck: Yes normal visual inspection, Yes full ROM and Yes no lymphadenopathy Chest: Chest palpation & inspection: normal inspection of the chest Resp: Auscultation: diminished lung sounds and bronchial breath sounds on the right Cardio: Rate: regular rate Rhythm: regular rhythm Heart sounds: S1 normal heart sound present and S2 normal heart sound present Skin: General skin exam: rashes and/or lesions noted Results Laboratory Findings CBC and BMP: 10/08/20 06:07 10/08/20 06:07 ABG, PT/INR, D-dimer: PT/INR, D-dimer PT 15.0 SEC (10.8-13.0) H 10/07/20 03:42 INR 1.3 (0.9-1.1) H 10/07/20 03:42 Abnormal lab findings: Abnormal Labs 10/07/20 10/07/20 10/07/20 03:42 03:42 03:42 WBC 15.6 H RBC Hgb 10.9 L Hct 36.4 L MCH 24.6 L MCHC 29.9 L RDW 19.5 H Plt Count 401 H MPV 9.0 L Neut % (Auto) 92.8 H Lymph % (Auto) 4.5 L Lymph # (Auto) 0.7 L Abs Immat Gran (auto) 0.05 H Absolute Neuts (auto) 14.5 H PT 15.0 H INR 1.3 H ABG pO2 at Pt Temp ABG pO2 (Temp Correct VBG HCO3 BUN 23 H Random Glucose 212 H Lactic Acid Lactic Acid Fup @ 2Hr Calcium B-Natriuretic Peptide 10/07/20 10/07/20 10/07/20 03:42 03:45 05:59 WBC RBC Hgb Hct MCH MCHC RDW Plt Count MPV Neut % (Auto) Lymph % (Auto) Lymph # (Auto) Abs Immat Gran (auto) Absolute Neuts (auto) PT INR ABG pO2 at Pt Temp ABG pO2 (Temp Correct VBG HCO3 19 L BUN Random Glucose Lactic Acid 2.7 H* Lactic Acid Fup @ 2Hr 2.4 H* Calcium B-Natriuretic Peptide 10/07/20 10/08/20 10/08/20 12:44 06:07 06:07 WBC 16.9 H RBC 3.32 L D Hgb 8.0 L D Hct 27.2 L D MCH 24.1 L MCHC 29.4 L RDW 19.6 H Plt Count MPV Neut % (Auto) Lymph % (Auto) Lymph # (Auto) Abs Immat Gran (auto) Absolute Neuts (auto) PT INR ABG pO2 at Pt Temp 53 L ABG pO2 (Temp Correct 52 L VBG HCO3 BUN 23 H Random Glucose 123 H D Lactic Acid Lactic Acid Fup @ 2Hr Calcium 8.1 L D B-Natriuretic Peptide 10/08/20 06:07 WBC RBC Hgb Hct MCH MCHC RDW Plt Count MPV Neut % (Auto) Lymph % (Auto) Lymph # (Auto) Abs Immat Gran (auto) Absolute Neuts (auto) PT INR ABG pO2 at Pt Temp ABG pO2 (Temp Correct VBG HCO3 BUN Random Glucose Lactic Acid Lactic Acid Fup @ 2Hr Calcium B-Natriuretic Peptide 167 H Microbiology: Microbiology 10/07/20 04:40 Blood - Venous Blood Culture - Preliminary No growth after 24 hours. 10/07/20 04:40 Blood - Venous Blood Culture - Preliminary No growth after 24 hours. Assessment and Plan (1) Acute respiratory failure with hypoxia: Status: Acute (2) Perforated viscus: Status: Acute (3) Atelectasis: Status: Acute (4) COPD (chronic obstructive pulmonary disease): Qualifiers: COPD type: emphysema Emphysema type: centrilobular Qualified Code(s): J43.2 - Centrilobular emphysema Status: Acute (5) Aspiration pneumonitis: Status: Acute Hypoxia due to V/Q missmatch due to increase shunting from the basilar atelectasis/consolidation. RLL likely developing into a consolidation with bronchial BS. Currently on Zosyn. Likely also developing some degree of bronchospasms due to anesthesia and bilious aspiration. REC: Continue abx therapy Add acapella valve Continue Duonebs Continue High Flow repeat CXR tomorrow Procedures Date of Service Date of Service: 10/08/20
[2020-10-09] VITALS (18 sets, daily range): BP systolic 122–155; BP diastolic 57–79; PULSE 76–91; RESP 16–22; TEMP 36.3–36.9; O2SAT 88–95
[2020-10-09] MEDS: Lactated Ringers 1,000 ML 100 ML IVCONT ×3 (03:05→23:22)
[2020-10-09] MEDS: Piperacillin Sodium/Tazobactam 3.375 GM in 0.9 % Sodium Chloride 50 ML IV ×4 (03:05→19:30)
[2020-10-09 06:09] LABS: Hematocrit 27.2 % (37-47); Hemoglobin 8.2 g/dl (12.0-16.0); Mean Corpuscular HGB Conc 30.1 g/dl (31.0-35.0); Mean Corpuscular Hemoglobin 24.9 pg (27.0-33.0); Mean Corpuscular Volume 82.7 fL (80-98); Mean Platelet Volume 9.1 fL (9.4-12.3); Platelet Count 369 X10*3/uL (160-400); Red Blood Count 3.29 X10*6/uL (4.20-5.50); Red Cell Distribution Width 19.4 % (11.0-16.0); White Blood Count 12.1 X10*3/uL (4.8-10.8)
[2020-10-09 06:14] LABS: Anion Gap 12 (12-20); Blood Urea Nitrogen 18 mg/dL (9-16); Calcium 8.4 mg/dL (8.4-10.2); Carbon Dioxide 28 mmol/L (22-29); Chloride 106 mmol/L (96-108); Creatinine Clr Calc Pharmacy 69.4; Estimated Glomerular Filt Rate > 60; Glucose Fasting 98 mg/dL (60-99); Potassium 3.8 mmol/L (3.3-5.1); Sodium 142 mmol/L (135-145)
--- NOTE | 2020-10-09 07:53 | PM.PNGS ---
Subjective Subjective Date of Service: 10/09/20 Interval history: Patient awake and alert; remains on high flow nasal O2. NGT inplace draining bilious fluid. Patient reports incisional pain pain. Was OOB yesterday; not using IS. Physical Exam Vital Signs: Vital Signs: Last Vital Signs Temp 97.3 F 10/09/20 07:45 Pulse 79 10/09/20 07:45 Resp 19 10/09/20 07:45 BP 148/76 H 10/09/20 07:45 Pulse Ox 92 10/09/20 07:45 Oxygen Flow Rate 50 10/09/20 07:00 Body Mass Index 34.7 Const: General: cooperative, alert and awake; No confusion Orientation/consciousness: No confusion HENMT: Head: Yes normocephalic and Yes atraumatic Resp: Effort & Inspection: normal respiratory effort, able to speak in complete sentences and Actively coughing GI: Other: midline incision is clean and intact without redness or discharge. HENRY intact draining serous fluid. No bile seen. NGT with bilious fluid, approximately 250 yesterday. Skin: Other: warm, dry, no rash Neuro: General: No confusion Progress Note: A&P Assessment and plan (1) COPD (chronic obstructive pulmonary disease): Status: Acute Assessment and Plan: Patient remains on high flow O2; encouraged OOB and IS deep breathing to prevent pneumonia (2) Perforated viscus: Status: Acute Assessment and Plan: Patient stable; WBC improving. HENRY with serous fluid; NGT still with output too high to remove tube. Continue Zosyn; recheck labs in AM. Continue IVFs. Fall Risk Details Current Medications: Current Medications Generic Name Dose Route Start Last Admin Trade Name Freq PRN Reason Stop Dose Admin Albuterol/Ipratropium 3 ml 10/07/20 20:00 10/08/20 20:19 Albuterol/Iprat 2.5/0.5mg 3 Ml Ampul.Neb INHALE 3 ml RQ4H WHILE AWAKE DILLON Administration Fentanyl 25 mcg 10/07/20 06:59 10/07/20 08:36 Fentanyl Citrate/Pf 100 Mcg/2 Ml Vial IVPUSH 25 mcg Q5M PRN Administration Pain, Moderate (Pain Scale 4-6 Heparin Sodium (Porcine) 5,000 unit 10/08/20 10:15 10/08/20 20:28 Heparin Sodium,Porcine 5,000 Unit/Ml Vial SUBCUT 5,000 unit Q12H DILLON Administration Hydromorphone HCl 0.25 mg 10/07/20 06:59 Hydromorphone Hcl 0.5 Mg/0.5 Ml Syringe IVPUSH Q5M PRN Pain, Severe (Pain Scale 7-10) Piperacillin Sod/Tazobactam 50 mls @ 100 mls/hr 10/07/20 08:15 10/09/20 04:39 Sod 3.375 gm/ Sodium Chloride IV Infused Q6H DILLON Infusion Lactated Ringer's 1,000 mls @ 100 mls/hr 10/07/20 08:15 10/09/20 03:05 Lr IVCONT 100 mls/hr .Q10H DILLON Administration Morphine Sulfate 2 mg 10/07/20 17:01 10/08/20 21:10 Morphine Sulfate 2 Mg/Ml Cartridge IVPUSH 2 mg Q3H PRN Administration Pain, Severe (Pain Scale 7-10) Nicotine 14 mg 10/08/20 09:00 10/08/20 08:30 Nicotine 14 Mg Patch.Td24 TRANSDERMA 14 mg DAILY DILLON Administration Ondansetron HCl 4 mg 10/07/20 06:59 Ondansetron Hcl 4 Mg/2 Ml Vial IVPUSH ONCE PRN Nausea and Vomiting Ondansetron HCl 4 mg 10/07/20 09:15 Ondansetron Hcl 4 Mg/2 Ml Vial IVPUSH Q8H PRN nausea Pantoprazole Sodium 40 mg 10/07/20 09:00 10/08/20 20:30 Pantoprazole Sodium 40 Mg/10 Ml Vial IVPUSH 40 mg BID DILLON Administration Time Spent With Patient Time: Total time spent is greater than 50% in coordination of care (as documented) at patient's floor/unit and/or counseling patient: Time with patient: 15 - 24 minutes Procedures Date of Service Date of Service: 10/09/20
[2020-10-09] MEDS: Morphine Sulfate 2 MG/ML CARTRIDGE IVPUSH ×4 (08:16→23:20)
[2020-10-09] MEDS: Albuterol/Iprat 2.5/0.5MG 3 ML AMPUL.NEB INHALE ×4 (08:17→19:42)
[2020-10-09] MEDS: Pantoprazole Sodium 40 MG/10 ML VIAL IVPUSH ×2 (08:22→19:28)
[2020-10-09] MEDS: Nicotine 14 MG PATCH.TD24 TRANSDERMA (08:23)
--- NOTE | 2020-10-09 08:42 | P.PNIM_ITS ---
Subjective Subjective Date of Service: 10/09/20 Interval History: relativelyy asymptomatic to degree of hypoxia, has cough, pain Cardiovascular Cardiovascular: Reports no additional cardiovascular complaints Respiratory Respiratory: Reports no additional respiratory complaints Physical Exam Vital Signs: Vital Signs: Last Vital Signs Temp 97.3 F 10/09/20 07:45 Pulse 91 10/09/20 08:22 Resp 22 H 10/09/20 08:23 BP 148/76 H 10/09/20 07:45 Pulse Ox 92 10/09/20 07:45 Oxygen Flow Rate 50 10/09/20 07:00 Body Mass Index 34.7 General: AO X 3, in some discomfort, no respiratory distress Resp: diminished CVS: S1,S2,RRR GI: deferrred Neuro: motor grossly intact Psych: appropriate affect Objective Data Current Medications Generic Name Dose Route Start Last Admin Trade Name Freq PRN Reason Stop Dose Admin Albuterol/Ipratropium 3 ml 10/07/20 20:00 10/09/20 08:17 Albuterol/Iprat 2.5/0.5mg 3 Ml Ampul.Neb INHALE 3 ml RQ4H WHILE AWAKE DILLON Administration Fentanyl 25 mcg 10/07/20 06:59 10/07/20 08:36 Fentanyl Citrate/Pf 100 Mcg/2 Ml Vial IVPUSH 25 mcg Q5M PRN Administration Pain, Moderate (Pain Scale 4-6 Heparin Sodium (Porcine) 5,000 unit 10/08/20 10:15 10/08/20 20:28 Heparin Sodium,Porcine 5,000 Unit/Ml Vial SUBCUT 5,000 unit Q12H DILLON Administration Hydromorphone HCl 0.25 mg 10/07/20 06:59 Hydromorphone Hcl 0.5 Mg/0.5 Ml Syringe IVPUSH Q5M PRN Pain, Severe (Pain Scale 7-10) Piperacillin Sod/Tazobactam 50 mls @ 100 mls/hr 10/07/20 08:15 10/09/20 08:15 Sod 3.375 gm/ Sodium Chloride IV 100 mls/hr Q6H DILLON Administration Lactated Ringer's 1,000 mls @ 100 mls/hr 10/07/20 08:15 10/09/20 03:05 Lr IVCONT 100 mls/hr .Q10H DILLON Administration Morphine Sulfate 2 mg 10/07/20 17:01 10/09/20 08:16 Morphine Sulfate 2 Mg/Ml Cartridge IVPUSH 2 mg Q3H PRN Administration Pain, Severe (Pain Scale 7-10) Nicotine 14 mg 10/08/20 09:00 10/09/20 08:23 Nicotine 14 Mg Patch.Td24 TRANSDERMA 14 mg DAILY DILLON Administration Ondansetron HCl 4 mg 10/07/20 06:59 Ondansetron Hcl 4 Mg/2 Ml Vial IVPUSH ONCE PRN Nausea and Vomiting Ondansetron HCl 4 mg 10/07/20 09:15 Ondansetron Hcl 4 Mg/2 Ml Vial IVPUSH Q8H PRN nausea Pantoprazole Sodium 40 mg 10/07/20 09:00 10/09/20 08:22 Pantoprazole Sodium 40 Mg/10 Ml Vial IVPUSH 40 mg BID DILLON Administration Labs CBC & Chem 7: 10/09/20 05:41 10/09/20 05:41 Microbiology Microbiology Results: Microbiology 10/07/20 04:40 Blood - Venous Blood Culture - Preliminary No growth after 48 hours. 10/07/20 04:40 Blood - Venous Blood Culture - Preliminary No growth after 48 hours. Assessment and Plan (1) Acute respiratory failure with hypoxia: Status: Acute (2) COPD (chronic obstructive pulmonary disease): Status: Acute (3) Atelectasis: Status: Acute Assessment and Plan: 80F presented with perforated duodenal ulcer, course complicated by acute hyp oxic respiratory failure Acute hypoxic respiratory failure due to poor inspiratory effort/ mucus plugging/atelecatasis in the setting of severe emphysema, possible infiltrate continue zoysyn wean high flow as tolerated, incentive spirometry, duonebs, flutter valve follow up repeat cxr pulm following Perforated duodenal ulcer Management per surgery Hypertension BP now higher end of normal, can restart amlodipine when taking po History of CVA Unclear if was on aspirin or plavix - restart when ok with surgery Restart statin when taking orals
[2020-10-09] MEDS: Heparin Sodium,Porcine 5,000 UNIT/ML VIAL 5000 UNIT SUBCUT ×2 (11:02→20:25)
[2020-10-10] VITALS (15 sets, daily range): BP systolic 138–151; BP diastolic 71–79; PULSE 76–95; RESP 16–20; TEMP 36.2–36.6; O2SAT 89–94
[2020-10-10] MEDS: Piperacillin Sodium/Tazobactam 3.375 GM in 0.9 % Sodium Chloride 50 ML IV ×4 (00:22→20:45)
[2020-10-10 07:08] LABS: MANUAL DIFF FLAG NO
[2020-10-10 07:25] LABS: Basophils Percent Auto 0.4 % (0-2); Eosinophils Absolute Auto 0.2 X10*3/uL (0.0-0.4); Eosinophils Percent Auto 1.5 % (0-4); Hematocrit 27.9 % (37-47); Hemoglobin 8.4 g/dl (12.0-16.0); Imm Gran Abs Auto 0.06 X10*3/uL (0.00-0.03); Imm Gran Pct Auto 0.6 % (0.0-0.4); Lymphocytes Percent Auto 8.9 % (20-40); Mean Corpuscular HGB Conc 30.1 g/dl (31.0-35.0); Mean Corpuscular Hemoglobin 24.7 pg (27.0-33.0); Mean Corpuscular Volume 82.1 fL (80-98); Mean Platelet Volume 9.5 fL (9.4-12.3); Monocytes Absolute Auto 0.7 X10*3/uL (0.1-1.2); Monocytes Percent Auto 6.2 % (2-11); Neutrophils Absolute Auto 8.8 X10*3/uL (2.0-8.3); Neutrophils Percent Auto 82.4 % (45-73); Platelet Count 429 X10*3/uL (160-400); Red Cell Distribution Width 19.2 % (11.0-16.0); White Blood Count 10.6 X10*3/uL (4.8-10.8)
[2020-10-10] MEDS: Albuterol/Iprat 2.5/0.5MG 3 ML AMPUL.NEB INHALE ×4 (07:44→19:34)
[2020-10-10 07:50] LABS: Anion Gap 14 (12-20); Blood Urea Nitrogen 11 mg/dL (9-16); Calcium 8.4 mg/dL (8.4-10.2); Carbon Dioxide 26 mmol/L (22-29); Chloride 105 mmol/L (96-108); Creatinine Clr Calc Pharmacy 76.2; Estimated Glomerular Filt Rate > 60; Glucose Random 89 mg/dL (60-115); Sodium 141 mmol/L (135-145)
[2020-10-10] MEDS: Pantoprazole Sodium 40 MG/10 ML VIAL IVPUSH (08:19)
[2020-10-10] MEDS: Nicotine 14 MG PATCH.TD24 TRANSDERMA (08:19)
--- NOTE | 2020-10-10 08:47 | HO.PM.IMPN ---
Subjective Subjective Date of Service: 10/10/20 Interval History: abdominal pain, sob improved Cardiovascular Cardiovascular: Reports no additional cardiovascular complaints Genitourinary Genitourinary: Reports no additional female genitourinary complaints Physical Exam Vital Signs: Vital Signs: Last Vital Signs Temp 97.4 F 10/10/20 08:00 Pulse 87 10/10/20 08:00 Resp 18 10/10/20 08:00 BP 151/79 H 10/10/20 08:00 Pulse Ox 90 L 10/10/20 08:00 Oxygen Flow Rate 50 10/09/20 09:00 Body Mass Index 34.7 General: AO X 3, in some discomfort, no respiratory distress Resp: diminished CVS: S1,S2,RRR GI: deferrred Neuro: motor grossly intact Psych: appropriate affect Objective Data Current Medications Generic Name Dose Route Start Last Admin Trade Name Freq PRN Reason Stop Dose Admin Albuterol/Ipratropium 3 ml 10/07/20 20:00 10/10/20 07:44 Albuterol/Iprat 2.5/0.5mg 3 Ml Ampul.Neb INHALE 3 ml RQ4H WHILE AWAKE DILLON Administration Fentanyl 25 mcg 10/07/20 06:59 10/07/20 08:36 Fentanyl Citrate/Pf 100 Mcg/2 Ml Vial IVPUSH 25 mcg Q5M PRN Administration Pain, Moderate (Pain Scale 4-6 Heparin Sodium (Porcine) 5,000 unit 10/08/20 10:15 10/09/20 20:25 Heparin Sodium,Porcine 5,000 Unit/Ml Vial SUBCUT 5,000 unit Q12H DILLON Administration Hydromorphone HCl 0.25 mg 10/07/20 06:59 Hydromorphone Hcl 0.5 Mg/0.5 Ml Syringe IVPUSH Q5M PRN Pain, Severe (Pain Scale 7-10) Piperacillin Sod/Tazobactam 50 mls @ 100 mls/hr 10/07/20 08:15 10/10/20 08:19 Sod 3.375 gm/ Sodium Chloride IV 100 mls/hr Q6H DILLON Administration Morphine Sulfate 2 mg 10/07/20 17:01 10/09/20 23:20 Morphine Sulfate 2 Mg/Ml Cartridge IVPUSH 2 mg Q3H PRN Administration Pain, Severe (Pain Scale 7-10) Nicotine 14 mg 10/08/20 09:00 10/10/20 08:19 Nicotine 14 Mg Patch.Td24 TRANSDERMA 14 mg DAILY DILLON Administration Ondansetron HCl 4 mg 10/07/20 06:59 Ondansetron Hcl 4 Mg/2 Ml Vial IVPUSH ONCE PRN Nausea and Vomiting Ondansetron HCl 4 mg 10/07/20 09:15 Ondansetron Hcl 4 Mg/2 Ml Vial IVPUSH Q8H PRN nausea Pantoprazole Sodium 40 mg 10/07/20 09:00 10/10/20 08:19 Pantoprazole Sodium 40 Mg/10 Ml Vial IVPUSH 40 mg BID DILLON Administration Labs CBC & Chem 7: 10/10/20 06:33 10/10/20 06:33 Microbiology Microbiology Results: Microbiology 10/07/20 04:40 Blood - Venous Blood Culture - Preliminary No growth after 48 hours. 10/07/20 04:40 Blood - Venous Blood Culture - Preliminary No growth after 48 hours. Assessment and Plan (1) Acute respiratory failure with hypoxia: Status: Acute (2) COPD (chronic obstructive pulmonary disease): Status: Acute (3) Atelectasis: Status: Acute Assessment and Plan: 80F presented with perforated duodenal ulcer, course complicated by acute hypoxic respiratory failure Acute hypoxic respiratory failure due to poor inspiratory effort/ mucus plugging/atelecatasis in the setting of severe emphysema, possible infiltrate continue zoysyn wean high flow as tolerated, incentive spirometry encouraged, polly, adelinaer valve, s/p 48hrs nebulized mucomyst pulm following Perforated duodenal ulcer Management per surgery Hypertension restart amlodipine once taking po History of CVA Unclear if was on aspirin or plavix - restart when ok with surgery Restart statin when taking orals
[2020-10-10] MEDS: Morphine Sulfate 2 MG/ML CARTRIDGE IVPUSH ×5 (08:53→23:45)
[2020-10-10] MEDS: Heparin Sodium,Porcine 5,000 UNIT/ML VIAL 5000 UNIT SUBCUT ×2 (08:54→21:15)
--- NOTE | 2020-10-10 09:16 | P.PNGS_ITS ---
Subjective Subjective Date of Service: 10/10/20 Interval history: She states she continues to feel better Still on high-flow oxygen States that pain has improved significantly Denies nausea or vomiting No events reported Physical Exam Vital Signs: Vital Signs: Last Vital Signs Temp 97.4 F 10/10/20 08:00 Pulse 87 10/10/20 08:00 Resp 18 10/10/20 08:00 BP 151/79 H 10/10/20 08:00 Pulse Ox 93 10/10/20 09:00 Oxygen Flow Rate 50 10/10/20 09:00 Body Mass Index 34.7 Laboratory Results - last 24 hr 10/10/20 10/10/20 06:33 06:33 WBC 10.6 RBC 3.40 L Hgb 8.4 L Hct 27.9 L MCV 82.1 MCH 24.7 L MCHC 30.1 L RDW 19.2 H Plt Count 429 H MPV 9.5 Immature Gran % (A uto) 0.6 H Neut % (Auto) 82.4 H Lymph % (Auto) 8.9 L [place] % (Auto) 6.2 Eos % (Auto) 1.5 Baso % (Auto) 0.4 Lymph # (Auto) 1.0 L [place] # (Auto) 0.7 Eos # (Auto) 0.2 Baso # (Auto) 0.0 Abs Immat Gran (au to) 0.06 H Absolute Neuts (au to) 8.8 H Absolute Nucleated RBC 0.000 Nucleated RBC % (a uto) 0.0 Sodium 141 Potassium 4.0 Chloride 105 Carbon Dioxide 26 Anion Gap 14 BUN 11 Creatinine 0.62 Estim Creat Clear Calc 76.2 Estimated GFR > 60 Random Glucose 89 Calcium 8.4 Const: General: comfortable and no acute distress Resp: Other: On high-flow O2 Effort & Inspection: normal respiratory effort Cardio: Rhythm: regular rhythm GI: Other: Soft, nondistended, no guarding rebound, clean and dry; HENRY drain - scanty clear serosanguineous output Progress Note: A&P Assessment and plan (1) Perforated viscus: Status: Acute Assessment and Plan: Continues to improve postop Plan to clamp NG tube and possibly DC later today Out of bed - encouraged ambulation Fully can be weaned off flow oxygen Emphasized benefits of incentive spirometry WBC normal, hemoglobin low - likely from periop fluids Fall Risk Details Current Medications: Current Medications Generic Name Dose Route Start Last Admin Trade Name Freq PRN Reason Stop Dose Admin Albuterol/Ipratropium 3 ml 10/07/20 20:00 10/10/20 07:44 Albuterol/Iprat 2.5/0.5mg 3 Ml Ampul.Neb INHALE 3 ml RQ4H WHILE AWAKE DILLON Administration Fentanyl 25 mcg 10/07/20 06:59 10/07/20 08:36 Fentanyl Citrate/Pf 100 Mcg/2 Ml Vial IVPUSH 25 mcg Q5M PRN Administration Pain, Moderate (Pain Scale 4-6 Heparin Sodium (Porcine) 5,000 unit 10/08/20 10:15 10/10/20 08:54 Heparin Sodium,Porcine 5,000 Unit/Ml Vial SUBCUT 5,000 unit Q12H DILLON Administration Hydromorphone HCl 0.25 mg 10/07/20 06:59 Hydromorphone Hcl 0.5 Mg/0.5 Ml Syringe IVPUSH Q5M PRN Pain, Severe (Pain Scale 7-10) Piperacillin Sod/Tazobactam 50 mls @ 100 mls/hr 10/07/20 08:15 10/10/20 09:07 Sod 3.375 gm/ Sodium Chloride IV Infused Q6H DILLON Infusion Morphine Sulfate 2 mg 10/07/20 17:01 10/10/20 08:53 Morphine Sulfate 2 Mg/Ml Cartridge IVPUSH 2 mg Q3H PRN Administration Pain, Severe (Pain Scale 7-10) Nicotine 14 mg 10/08/20 09:00 10/10/20 08:19 Nicotine 14 Mg Patch.Td24 TRANSDERMA 14 mg DAILY DILLON Administration Ondansetron HCl 4 mg 10/07/20 06:59 Ondansetron Hcl 4 Mg/2 Ml Vial IVPUSH ONCE PRN Nausea and Vomiting Ondansetron HCl 4 mg 10/07/20 09:15 Ondansetron Hcl 4 Mg/2 Ml Vial IVPUSH Q8H PRN nausea Time Spent With Patient Time: Total time spent is greater than 50% in coordination of care (as documented) at patient's floor/unit and/or counseling patient: Time with patient: 25 - 35 minutes Procedures Date of Service Date of Service: 10/10/20
[2020-10-10] MEDS: Dextrose 5 % and 0.9 % NaCl 1,000 ML 80 ML IVCONT ×2 (10:36→21:16)
--- NOTE | 2020-10-10 14:11 | HO.POSTANES ---
Post Anesthesia Evaluation Post Anesthesia Evaluation Vital Signs: Vital Signs Temp Pulse Resp BP Pulse Ox 10/10/20 11:46 97.4 F 76 18 150/71 H 93 10/10/20 11:23 81 20 10/10/20 09:00 93 10/10/20 08:00 97.4 F 87 18 151/79 H 90 L 10/10/20 07:45 86 20 10/10/20 05:40 89 L 10/10/20 04:43 20 10/10/20 03:55 97.6 F 95 20 140/74 H 90 L Anesthesia: General Endotracheal-GETA Mental Status: Awake Pain Control: Satisfactory Nausea/Vomiting: None Hydration: Adequate Anesthesia-Related Issues: No Anes. Related Issues
[2020-10-11] VITALS (15 sets, daily range): BP systolic 122–151; BP diastolic 60–85; PULSE 71–91; RESP 16–22; TEMP 36.4–36.9; O2SAT 90–96
[2020-10-11] MEDS: Piperacillin Sodium/Tazobactam 3.375 GM in 0.9 % Sodium Chloride 50 ML IV ×4 (02:30→20:14)
[2020-10-11] MEDS: Morphine Sulfate 2 MG/ML CARTRIDGE IVPUSH ×3 (04:15→20:14)
[2020-10-11] MEDS: Albuterol/Iprat 2.5/0.5MG 3 ML AMPUL.NEB INHALE ×4 (04:43→19:35)
[2020-10-11] MEDS: Nicotine 14 MG PATCH.TD24 TRANSDERMA (08:19)
--- NOTE | 2020-10-11 09:09 | PM.PNGS ---
Subjective Subjective Date of Service: 10/11/20 Interval history: she says she continues to feel better states the night was uneventful pain much improved still requiring high flow O2 by NC Physical Exam Vital Signs: Vital Signs: Last Vital Signs Temp 97.5 F 10/11/20 07:40 Pulse 85 10/11/20 07:40 Resp 20 10/11/20 07:40 BP 149/74 H 10/11/20 07:40 Pulse Ox 93 10/11/20 07:40 Oxygen Flow Rate 50 10/11/20 05:25 Body Mass Index 34.7 Const: General: comfortable and no acute distress Resp: Effort & Inspection: normal respiratory effort GI: Other: HENRY drain clear output, scanty Palpation (GI): Soft to palpation, not firm, no guarding and not rigid Progress Note: A&P Assessment and plan (1) Perforated viscus: Status: Acute Assessment and Plan: S/P omental patch doing well NGT dc'ed yesterday clear liquids, diet as advanced main issue now is her O2 sats - she still desaturates off high flow O2 although she has been comfortable Fall Risk Details Current Medications: Current Medications Generic Name Dose Route Start Last Admin Trade Name Freq PRN Reason Stop Dose Admin Albuterol/Ipratropium 3 ml 10/07/20 20:00 10/11/20 04:43 Albuterol/Iprat 2.5/0.5mg 3 Ml Ampul.Neb INHALE 3 ml RQ4H WHILE AWAKE DILLON Administration Fentanyl 25 mcg 10/07/20 06:59 10/07/20 08:36 Fentanyl Citrate/Pf 100 Mcg/2 Ml Vial IVPUSH 25 mcg Q5M PRN Administration Pain, Moderate (Pain Scale 4-6 Heparin Sodium (Porcine) 5,000 unit 10/08/20 10:15 10/10/20 21:15 Heparin Sodium,Porcine 5,000 Unit/Ml Vial SUBCUT 5,000 unit Q12H DILLON Administration Hydromorphone HCl 0.25 mg 10/07/20 06:59 Hydromorphone Hcl 0.5 Mg/0.5 Ml Syringe IVPUSH Q5M PRN Pain, Severe (Pain Scale 7-10) Piperacillin Sod/Tazobactam 50 mls @ 100 mls/hr 10/07/20 08:15 10/11/20 08:13 Sod 3.375 gm/ Sodium Chloride IV 50 mls/hr Q6H DILLON Administration Dextrose/Sodium Chloride 1,000 mls @ 80 mls/hr 10/10/20 11:00 10/10/20 21:16 D5ns IVCONT 80 mls/hr .[id number] DILLON Administration Morphine Sulfate 2 mg 10/07/20 17:01 10/11/20 07:37 Morphine Sulfate 2 Mg/Ml Cartridge IVPUSH 2 mg Q3H PRN Administration Pain, Severe (Pain Scale 7-10) Nicotine 14 mg 10/08/20 09:00 10/11/20 08:19 Nicotine 14 Mg Patch.Td24 TRANSDERMA 14 mg DAILY DILLON Administration Ondansetron HCl 4 mg 10/07/20 06:59 Ondansetron Hcl 4 Mg/2 Ml Vial IVPUSH ONCE PRN Nausea and Vomiting Ondansetron HCl 4 mg 10/07/20 09:15 Ondansetron Hcl 4 Mg/2 Ml Vial IVPUSH Q8H PRN nausea Time Spent With Patient Time: Total time spent is greater than 50% in coordination of care (as documented) at patient's floor/unit and/or counseling patient: Time with patient: 15 - 24 minutes Procedures Date of Service Date of Service: 10/11/20
[2020-10-11] MEDS: Dextrose 5 % and 0.9 % NaCl 1,000 ML 80 ML IVCONT ×2 (09:21→20:15)
[2020-10-11] MEDS: Heparin Sodium,Porcine 5,000 UNIT/ML VIAL 5000 UNIT SUBCUT ×2 (10:38→21:58)
--- NOTE | 2020-10-11 13:35 | HO.PM.IMPN ---
Subjective Subjective Date of Service: 10/11/20 Interval History: the patient was seen and evaluated this morning Laying in bed, feels comfortable overall On high-flow oxygen Denies any fever, chills or shortness of breath No reported other overnight events. Systemic review: No fever, chills but reports some pain in and weakness No chest pain, palpitation No shortness of breath or coughing Mild abdominal pain, no nausea or vomiting No urinary symptoms No any rash or wounds Physical Exam Vital Signs: Vital Signs: Last Vital Signs Temp 98.5 F 10/11/20 11:37 Pulse 86 10/11/20 11:37 Resp 19 10/11/20 11:37 BP 150/76 H 10/11/20 11:37 Pulse Ox 96 10/11/20 11:37 Oxygen Flow Rate 50 10/11/20 05:25 Body Mass Index 34.7 Const: Other: Constitutional : Alert, oriented, not in distress Neck : Normal inspection, Supple Cardiovascular : RRR, S1 S2, no lower extremity edema Respiratory : Good bilateral air entry, no crackles, wheezes or rhonchi Gastrointestinal: soft, lax, Normal bowel sounds, Non tender Skin : Warm/Dry, No rash Neurological : Alert & oriented x3, No focal deficit Objective Data Current Medications Generic Name Dose Route Start Last Admin Trade Name Freq PRN Reason Stop Dose Admin Albuterol/Ipratropium 3 ml 10/07/20 20:00 10/11/20 11:15 Albuterol/Iprat 2.5/0.5mg 3 Ml Ampul.Neb INHALE 3 ml RQ4H WHILE AWAKE DILLON Administration Fentanyl 25 mcg 10/07/20 06:59 10/07/20 08:36 Fentanyl Citrate/Pf 100 Mcg/2 Ml Vial IVPUSH 25 mcg Q5M PRN Administration Pain, Moderate (Pain Scale 4-6 Heparin Sodium (Porcine) 5,000 unit 10/08/20 10:15 10/11/20 10:38 Heparin Sodium,Porcine 5,000 Unit/Ml Vial SUBCUT 5,000 unit Q12H DILLON Administration Hydromorphone HCl 0.25 mg 10/07/20 06:59 Hydromorphone Hcl 0.5 Mg/0.5 Ml Syringe IVPUSH Q5M PRN Pain, Severe (Pain Scale 7-10) Piperacillin Sod/Tazobactam 50 mls @ 100 mls/hr 10/07/20 08:15 10/11/20 09:20 Sod 3.375 gm/ Sodium Chloride IV Infused Q6H DILLON Infusion Dextrose/Sodium Chloride 1,000 mls @ 80 mls/hr 10/10/20 11:00 10/11/20 09:21 D5ns IVCONT 80 mls/hr .[id number] DILLON Administration Morphine Sulfate 2 mg 10/07/20 17:01 10/11/20 07:37 Morphine Sulfate 2 Mg/Ml Cartridge IVPUSH 2 mg Q3H PRN Administration Pain, Severe (Pain Scale 7-10) Nicotine 14 mg 10/08/20 09:00 10/11/20 08:19 Nicotine 14 Mg Patch.Td24 TRANSDERMA 14 mg DAILY DLILON Administration Ondansetron HCl 4 mg 10/07/20 06:59 Ondansetron Hcl 4 Mg/2 Ml Vial IVPUSH ONCE PRN Nausea and Vomiting Ondansetron HCl 4 mg 10/07/20 09:15 Ondansetron Hcl 4 Mg/2 Ml Vial IVPUSH Q8H PRN nausea Labs CBC & Chem 7: 10/10/20 06:33 10/10/20 06:33 Microbiology Microbiology Results: Microbiology 10/07/20 04:40 Blood - Venous Blood Culture - Preliminary No growth after 48 hours. 10/07/20 04:40 Blood - Venous Blood Culture - Preliminary No growth after 48 hours. Assessment and Plan (1) Acute respiratory failure with hypoxia: Status: Acute (2) COPD (chronic obstructive pulmonary disease): Status: Acute (3) Atelectasis: Status: Acute Assessment and Plan: 80F presented with perforated duodenal ulcer, course complicated by acute hypoxic respiratory failure Acute hypoxic respiratory failure due to poor inspiratory effort/ mucus plugging/atelecatasis in the setting of severe emphysema, possible infiltrate continue zoysyn wean high flow as tolerated, incentive spirometry encouraged Continue duoneadelina gomezer valve, As needed a nebulized mucomyst pulm following Perforated duodenal ulcer Management per surgery Hypertension restart amlodipine once taking po History of CVA Aspirin to restart when ok with surgery Restart statin when taking orals
--- NOTE | 2020-10-11 14:21 | MHC.CM.PN ---
JOE SALINAS UPDATED IN [place]. NO PLAN FOR DISCHARGE TODAY CASE MANAGEMENT CONTINUING TO FOLLOW
[2020-10-12] VITALS (15 sets, daily range): BP systolic 119–146; BP diastolic 66–82; PULSE 60–95; RESP 16–32; TEMP 36–36.7; O2SAT 90–94
[2020-10-12] MEDS: Piperacillin Sodium/Tazobactam 3.375 GM in 0.9 % Sodium Chloride 50 ML IV ×4 (02:40→19:54)
[2020-10-12] MEDS: Morphine Sulfate 2 MG/ML CARTRIDGE IVPUSH ×2 (05:59→13:32)
[2020-10-12 06:49] LABS: Hematocrit 27.3 % (37-47); Hemoglobin 8.2 g/dl (12.0-16.0); Mean Corpuscular Hemoglobin 24.5 pg (27.0-33.0); Mean Corpuscular Volume 81.5 fL (80-98); Mean Platelet Volume 9.3 fL (9.4-12.3); Platelet Count 368 X10*3/uL (160-400); Red Blood Count 3.35 X10*6/uL (4.20-5.50); Red Cell Distribution Width 18.7 % (11.0-16.0); White Blood Count 9.2 X10*3/uL (4.8-10.8)
[2020-10-12 06:57] LABS: Anion Gap 11 (12-20); Blood Urea Nitrogen 3 mg/dL (9-16); Calcium 8.2 mg/dL (8.4-10.2); Carbon Dioxide 27 mmol/L (22-29); Chloride 107 mmol/L (96-108); Estimated Glomerular Filt Rate > 60; Glucose Random 140 mg/dL (60-115); Potassium 3.4 mmol/L (3.3-5.1); Sodium 142 mmol/L (135-145)
[2020-10-12] MEDS: Nicotine 14 MG PATCH.TD24 TRANSDERMA (08:03)
[2020-10-12] MEDS: Albuterol/Iprat 2.5/0.5MG 3 ML AMPUL.NEB INHALE ×4 (08:20→21:02)
[2020-10-12] MEDS: Heparin Sodium,Porcine 5,000 UNIT/ML VIAL 5000 UNIT SUBCUT ×2 (08:49→23:05)
--- NOTE | 2020-10-12 09:16 | PM.PNGS ---
Subjective Subjective Date of Service: 10/12/20 Interval history: Says she feels well Asking for food Has had good BMs Tolerating clear liquids Physical Exam Vital Signs: Vital Signs: Last Vital Signs Temp 98.0 F 10/12/20 08:00 Pulse 61 10/12/20 08:21 Resp 18 10/12/20 08:21 BP 129/79 10/12/20 08:00 Pulse Ox 91 L 10/12/20 08:00 Oxygen Flow Rate 50 10/12/20 05:52 Body Mass Index 34.7 Const: Other: Still on high-flow O2 by nasal cannula General: comfortable and no acute distress Resp: Effort & Inspection: normal respiratory effort Cardio: Rate: regular rate GI: Other: Incision clean and dry, HENRY drain with scanty clear output Palpation (GI): Soft to palpation, not firm, no guarding and not rigid Progress Note: A&P Assessment and plan (1) Perforated viscus: Status: Acute Assessment and Plan: Status post omental patch Doing well postop Does not seem to have good volumes on incentive spirometry however despite instructions Emphasized to her the need for using the incentive spirometry so we can taper her off of high-flow O2 Diet as tolerated Out of bed Good pain control Discussed plan with nurse Fall Risk Details Current Medications: Current Medications Generic Name Dose Route Start Last Admin Trade Name Freq PRN Reason Stop Dose Admin Albuterol/Ipratropium 3 ml 10/07/20 20:00 10/12/20 08:20 Albuterol/Iprat 2.5/0.5mg 3 Ml Ampul.Neb INHALE 3 ml RQ4H WHILE AWAKE DILLON Administration Heparin Sodium (Porcine) 5,000 unit 10/08/20 10:15 10/12/20 08:49 Heparin Sodium,Porcine 5,000 Unit/Ml Vial SUBCUT 5,000 unit Q12H DLILON Administration Piperacillin Sod/Tazobactam 50 mls @ 100 mls/hr 10/07/20 08:15 10/12/20 09:10 Sod 3.375 gm/ Sodium Chloride IV Infused Q6H DILLON Infusion Dextrose/Sodium Chloride 1,000 mls @ 80 mls/hr 10/10/20 11:00 10/12/20 09:10 D5ns IVCONT 80 mls/hr .[id number] DILLON Infusion Morphine Sulfate 2 mg 10/07/20 17:01 10/12/20 05:59 Morphine Sulfate 2 Mg/Ml Cartridge IVPUSH 2 mg Q3H PRN Administration Pain, Severe (Pain Scale 7-10) Nicotine 14 mg 10/08/20 09:00 10/12/20 08:03 Nicotine 14 Mg Patch.Td24 TRANSDERMA 14 mg DAILY DILLON Administration Ondansetron HCl 4 mg 10/07/20 06:59 Ondansetron Hcl 4 Mg/2 Ml Vial IVPUSH ONCE PRN Nausea and Vomiting Ondansetron HCl 4 mg 10/07/20 09:15 Ondansetron Hcl 4 Mg/2 Ml Vial IVPUSH Q8H PRN nausea Time Spent With Patient Time: Total time spent is greater than 50% in coordination of care (as documented) at patient's floor/unit and/or counseling patient: Time with patient: 15 - 24 minutes Procedures Date of Service Date of Service: 10/12/20
[2020-10-12] MEDS: Acetylcysteine 10 % 400 MG/4 ML VIAL INHALE (11:46)
--- NOTE | 2020-10-12 13:16 | HO.PM.IMPN ---
Subjective Subjective Date of Service: 10/12/20 Interval History: The patient was seen and evaluated this morning Laying in bed, feels comfortable overall On high-flow oxygen 30 L this morning Denies any fever, chills or shortness of breath No reported other overnight events. Systemic review: No fever, chills but reports some pain in and weakness No chest pain, palpitation No shortness of breath or coughing Mild abdominal pain, no nausea or vomiting No urinary symptoms No any rash or wounds Physical Exam Vital Signs: Vital Signs: Last Vital Signs Temp 96.8 F 10/12/20 12:00 Pulse 88 10/12/20 12:00 Resp 18 10/12/20 12:00 BP 135/82 10/12/20 12:00 Pulse Ox 91 L 10/12/20 12:00 Oxygen Flow Rate 50 10/12/20 05:52 Body Mass Index 34.7 Const: Other: Constitutional : Alert, oriented, not in distress Neck : Normal inspection, Supple Cardiovascular : RRR, S1 S2, no lower extremity edema Respiratory : Good bilateral air entry, no crackles, wheezes or rhonchi Gastrointestinal: soft, lax, Normal bowel sounds, Non tender Skin : Warm/Dry, No rash Neurological : Alert & oriented x3, No focal deficit Objective Data Current Medications Generic Name Dose Route Start Last Admin Trade Name Freq PRN Reason Stop Dose Admin Albuterol/Ipratropium 3 ml 10/07/20 20:00 10/12/20 11:46 Albuterol/Iprat 2.5/0.5mg 3 Ml Ampul.Neb INHALE 3 ml RQ4H WHILE AWAKE DILLON Administration Aspirin 81 mg 10/13/20 09:00 Aspirin Enteric Coated 81 Mg Tablet.Dr PO DAILY DILLON Heparin Sodium (Porcine) 5,000 unit 10/08/20 10:15 10/12/20 08:49 Heparin Sodium,Porcine 5,000 Unit/Ml Vial SUBCUT 5,000 unit Q12H DILLON Administration Piperacillin Sod/Tazobactam 50 mls @ 100 mls/hr 10/07/20 08:15 10/12/20 09:10 Sod 3.375 gm/ Sodium Chloride IV Infused Q6H DILLON Infusion Dextrose/Sodium Chloride 1,000 mls @ 60 mls/hr 10/10/20 11:00 10/12/20 10:02 D5ns IVCONT Infused .[id number] DILLON Infusion Morphine Sulfate 2 mg 10/07/20 17:01 10/12/20 05:59 Morphine Sulfate 2 Mg/Ml Cartridge IVPUSH 2 mg Q3H PRN Administration Pain, Severe (Pain Scale 7-10) Nicotine 14 mg 10/08/20 09:00 10/12/20 08:03 Nicotine 14 Mg Patch.Td24 TRANSDERMA 14 mg DAILY DILLON Administration Ondansetron HCl 4 mg 10/07/20 06:59 Ondansetron Hcl 4 Mg/2 Ml Vial IVPUSH ONCE PRN Nausea and Vomiting Ondansetron HCl 4 mg 10/07/20 09:15 Ondansetron Hcl 4 Mg/2 Ml Vial IVPUSH Q8H PRN nausea Labs CBC & Chem 7: 10/12/20 06:17 10/12/20 06:17 Microbiology Microbiology Results: Microbiology 10/07/20 04:40 Blood - Venous Blood Culture - Final No growth after 5 days. 10/07/20 04:40 Blood - Venous Blood Culture - Final No growth after 5 days. Assessment and Plan (1) Acute respiratory failure with hypoxia: Status: Acute (2) COPD (chronic obstructive pulmonary disease): Status: Acute (3) Atelectasis: Status: Acute Assessment and Plan: 80F presented with perforated duodenal ulcer, course complicated by acute hypoxic respiratory failure Acute hypoxic respiratory failure due to poor inspiratory effort/ mucus plugging/atelecatasis in the setting of severe emphysema, possible infiltrate continue zoysyn wean high flow as tolerated, incentive spirometry encouraged Continue duonebs, flutter valve, nebulized mucomyst pulm following Perforated duodenal ulcer Management per surgery Hypertension restart amlodipine once taking po History of CVA Aspirin to restart when ok with surgery Restart statin when taking orals
[2020-10-12] MEDS: Dextrose 5 % and 0.9 % NaCl 1,000 ML 80 ML IVCONT (13:17)
[2020-10-12] MEDS: Acetaminophen 325 MG TABLET 650 MG PO (21:15)
[2020-10-13] VITALS (12 sets, daily range): BP systolic 146–155; BP diastolic 71–81; PULSE 68–90; RESP 18–28; TEMP 36.3–36.9; O2SAT 89–95
[2020-10-13] MEDS: Dextrose 5 % and 0.9 % NaCl 1,000 ML 80 ML IVCONT (01:50)
[2020-10-13] MEDS: Piperacillin Sodium/Tazobactam 3.375 GM in 0.9 % Sodium Chloride 50 ML IV ×4 (01:57→20:33)
[2020-10-13] MEDS: oxyCODONE HCl Immed Release 5 MG TABLET PO (05:20)
[2020-10-13 06:39] LABS: MANUAL DIFF FLAG NO
[2020-10-13 06:48] LABS: Basophils Percent Auto 0.4 % (0-2); Eosinophils Absolute Auto 0.3 X10*3/uL (0.0-0.4); Eosinophils Percent Auto 2.9 % (0-4); Hematocrit 26.9 % (37-47); Imm Gran Abs Auto 0.18 X10*3/uL (0.00-0.03); Lymphocytes Absolute Auto 1.3 X10*3/uL (1.2-4.9); Lymphocytes Percent Auto 13.7 % (20-40); Mean Corpuscular HGB Conc 29.7 g/dl (31.0-35.0); Mean Corpuscular Hemoglobin 24.6 pg (27.0-33.0); Mean Corpuscular Volume 82.8 fL (80-98); Mean Platelet Volume 9.1 fL (9.4-12.3); Monocytes Percent Auto 10.6 % (2-11); Neutrophils Absolute Auto 6.5 X10*3/uL (2.0-8.3); Neutrophils Percent Auto 70.4 % (45-73); Platelet Count 364 X10*3/uL (160-400); Red Blood Count 3.25 X10*6/uL (4.20-5.50); Red Cell Distribution Width 18.8 % (11.0-16.0); White Blood Count 9.2 X10*3/uL (4.8-10.8)
[2020-10-13 07:31] LABS: Anion Gap 11 (12-20); Blood Urea Nitrogen 4 mg/dL (9-16); Calcium 7.9 mg/dL (8.4-10.2); Carbon Dioxide 26 mmol/L (22-29); Chloride 109 mmol/L (96-108); Creatinine Clr Calc Pharmacy 81.4; Estimated Glomerular Filt Rate > 60; Glucose Random 125 mg/dL (60-115); Potassium 3.4 mmol/L (3.3-5.1); Sodium 143 mmol/L (135-145)
[2020-10-13] MEDS: Albuterol/Iprat 2.5/0.5MG 3 ML AMPUL.NEB INHALE ×4 (08:12→20:37)
[2020-10-13] MEDS: Nicotine 14 MG PATCH.TD24 TRANSDERMA (08:53)
[2020-10-13] MEDS: Aspirin Enteric Coated 81 MG TABLET.DR PO (08:54)
[2020-10-13] MEDS: Furosemide 40 MG/4 ML VIAL IVPUSH ×2 (09:48→17:13)
[2020-10-13] MEDS: Heparin Sodium,Porcine 5,000 UNIT/ML VIAL 5000 UNIT SUBCUT ×2 (09:50→23:32)
--- NOTE | 2020-10-13 10:32 | MHC.CM.PN ---
EMR REVIEWED, PT CONT'S TO RECEIVE HIGH FLOW O2, PER SURGICAL PT TO BE WEANED OFF HIGH FLOW O2 W/PLAN TO D/C ON HOME O2, PPER SURGICAL PT WILL NEED STR PRIOR TO RETURNING HOME, CM MET WITH PT WHOSE FIRST CHOICE IS [facility], PT ALSO GIVEN LIST OF SNF'S TO CHOOSE ADDITIONAL CHOICES IN CASE SHE IS DECLINED BY [facility]. D/C PLAN STR W/ACTION FOR BLS TRANSPORT.
--- NOTE | 2020-10-13 11:18 | P.PNGS_ITS ---
Subjective Subjective Date of Service: 10/13/20 Interval history: Feels well Tolerating diet Good GI functions FiO2 requirements on high-flow oxygen decreasing Physical Exam Vital Signs: Vital Signs: Last Vital Signs Temp 98.2 F 10/13/20 08:00 Pulse 68 10/13/20 08:13 Resp 18 10/13/20 08:13 BP 152/81 H 10/13/20 08:00 Pulse Ox 92 10/13/20 08:00 Oxygen Flow Rate 50 10/13/20 05:54 Body Mass Index 34.7 Laboratory Results - last 24 hr 10/13/20 10/13/20 06:12 06:12 WBC 9.2 RBC 3.25 L Hgb 8.0 L Hct 26.9 L MCV 82.8 MCH 24.6 L MCHC 29.7 L RDW 18.8 H Plt Count 364 MPV 9.1 L Immature Gran % (A uto) 2.0 H Neut % (Auto) 70.4 Lymph % (Auto) 13.7 L [place] % (Auto) 10.6 Eos % (Auto) 2.9 Baso % (Auto) 0.4 Lymph # (Auto) 1.3 [place] # (Auto) 1.0 Eos # (Auto) 0.3 Baso # (Auto) 0.0 Abs Immat Gran (au to) 0.18 H Absolute Neuts (au to) 6.5 Absolute Nucleated RBC 0.000 Nucleated RBC % (a uto) 0.0 Sodium 143 Potassium 3.4 Chloride 109 H Carbon Dioxide 26 Anion Gap 11 L BUN 4 L Creatinine 0.58 Estim Creat Clear Calc 81.4 Estimated GFR > 60 Random Glucose 125 H Calcium 7.9 L Const: General: comfortable and no acute distress Resp: Effort & Inspection: normal respiratory effort Cardio: Rhythm: regular rhythm GI: Other: Incision clean and dry, HENRY drain very scanty clear output Palpation (GI): Soft to palpation, not firm and no guarding Progress Note: A&P Assessment and plan (1) Perforated viscus: Status: Acute Assessment and Plan: Status post repair with omental patch Doing well overall Good GI function Main issue now is her COPD requiring high flow O2 Continue weaning off from O2 DC planning - may need prison facility Discussed with medical case worker Fall Risk Details Current Medications: Current Medications Generic Name Dose Route Start Last Admin Trade Name Freq PRN Reason Stop Dose Admin Acetaminophen 650 mg 10/12/20 21:04 10/12/20 21:15 Acetaminophen 325 Mg Tablet PO 650 mg Q6H PRN Administration Pain, Mild (Pain Scale 1-3) Albuterol/Ipratropium 3 ml 10/07/20 20:00 10/13/20 08:12 Albuterol/Iprat 2.5/0.5mg 3 Ml Ampul.Neb INHALE 3 ml RQ4H WHILE AWAKE DILLON Administration Aspirin 81 mg 10/13/20 09:00 10/13/20 08:54 Aspirin Enteric Coated 81 Mg Tablet. PO 81 mg DAILY DILLON Administration Furosemide 40 mg 10/13/20 09:00 10/13/20 09:48 Furosemide 40 Mg/4 Ml Vial IVPUSH 40 mg BID@0900,1800 DILLON Administration Protocol Heparin Sodium (Porcine) 5,000 unit 10/08/20 10:15 10/13/20 09:50 Heparin Sodium,Porcine 5,000 Unit/Ml Vial SUBCUT 5,000 unit Q12H DILLON Administration Piperacillin Sod/Tazobactam 50 mls @ 100 mls/hr 10/07/20 08:15 10/13/20 08:52 Sod 3.375 gm/ Sodium Chloride IV Infused Q6H DILLON Infusion Nicotine 14 mg 10/08/20 09:00 10/13/20 08:53 Nicotine 14 Mg Patch.Td24 TRANSDERMA 14 mg DAILY DILLON Administration Ondansetron HCl 4 mg 10/07/20 06:59 Ondansetron Hcl 4 Mg/2 Ml Vial IVPUSH ONCE PRN Nausea and Vomiting Ondansetron HCl 4 mg 10/07/20 09:15 Ondansetron Hcl 4 Mg/2 Ml Vial IVPUSH Q8H PRN nausea Time Spent With Patient Time: Total time spent is greater than 50% in coordination of care (as documented) at patient's floor/unit and/or counseling patient: Time with patient: 15 - 24 minutes Procedures Date of Service Date of Service: 10/13/20
--- NOTE | 2020-10-13 13:57 | HO.PM.IMPN ---
Subjective Subjective Date of Service: 10/13/20 Interval History: The patient was seen and evaluated this morning Laying in bed, feels comfortable overall On high-flow oxygen 30 L this morning Denies any fever, chills or shortness of breath No reported other overnight events Systemic review: No fever, chills but reports some pain in and weakness No chest pain, palpitation No shortness of breath or coughing Mild abdominal pain, no nausea or vomiting No urinary symptoms No any rash or wounds Physical Exam Vital Signs: Vital Signs: Last Vital Signs Temp 98.0 F 10/13/20 12:00 Pulse 85 10/13/20 12:00 Resp 20 10/13/20 12:00 BP 146/71 H 10/13/20 12:00 Pulse Ox 92 10/13/20 12:00 Oxygen Flow Rate 50 10/13/20 05:54 Body Mass Index 34.7 Const: Other: Constitutional : Alert, oriented, in mild distress Neck : Normal inspection, Supple Cardiovascular : RRR, S1 S2, no lower extremity edema Respiratory : Good bilateral air entry, no crackles, wheezes or rhonchi, On 30L O2 supplement Gastrointestinal: soft, lax, Normal bowel sounds, Non tender Skin : Warm/Dry, No rash Neurological : Alert & oriented x3, No focal deficit Objective Data Current Medications Generic Name Dose Route Start Last Admin Trade Name Mitchq PRN Reason Stop Dose Admin Acetaminophen 650 mg 10/12/20 21:04 10/12/20 21:15 Acetaminophen 325 Mg Tablet PO 650 mg Q6H PRN Administration Pain, Mild (Pain Scale 1-3) Albuterol/Ipratropium 3 ml 10/07/20 20:00 10/13/20 11:56 Albuterol/Iprat 2.5/0.5mg 3 Ml Ampul.Neb INHALE 3 ml RQ4H WHILE AWAKE DILLON Administration Aspirin 81 mg 10/13/20 09:00 10/13/20 08:54 Aspirin Enteric Coated 81 Mg Tablet.Dr PO 81 mg DAILY DILLON Administration Furosemide 40 mg 10/13/20 09:00 10/13/20 09:48 Furosemide 40 Mg/4 Ml Vial IVPUSH 40 mg BID@0900,1800 DILLON Administration Protocol Heparin Sodium (Porcine) 5,000 unit 10/08/20 10:15 10/13/20 09:50 Heparin Sodium,Porcine 5,000 Unit/Ml Vial SUBCUT 5,000 unit Q12H DILLON Administration Piperacillin Sod/Tazobactam 50 mls @ 100 mls/hr 10/07/20 08:15 10/13/20 08:52 Sod 3.375 gm/ Sodium Chloride IV Infused Q6H DILLON Infusion Nicotine 14 mg 10/08/20 09:00 10/13/20 08:53 Nicotine 14 Mg Patch.Td24 TRANSDERMA 14 mg DAILY DILLON Administration Ondansetron HCl 4 mg 10/07/20 06:59 Ondansetron Hcl 4 Mg/2 Ml Vial IVPUSH ONCE PRN Nausea and Vomiting Ondansetron HCl 4 mg 10/07/20 09:15 Ondansetron Hcl 4 Mg/2 Ml Vial IVPUSH Q8H PRN nausea Labs CBC & Chem 7: 10/13/20 06:12 10/13/20 06:12 Microbiology Microbiology Results: Microbiology 10/07/20 04:40 Blood - Venous Blood Culture - Final No growth after 5 days. 10/07/20 04:40 Blood - Venous Blood Culture - Final No growth after 5 days. Assessment and Plan (1) Acute respiratory failure with hypoxia: Status: Acute (2) COPD (chronic obstructive pulmonary disease): Status: Acute (3) Atelectasis: Status: Acute Assessment and Plan: 80F presented with perforated duodenal ulcer, course complicated by acute hypoxic respiratory failure Acute hypoxic respiratory failure due to poor inspiratory effort/ mucus plugging/atelecatasis/fluid overload in the setting of severe emphysema, possible infiltrate continue zoysyn wean high flow as tolerated, incentive spirometry encouraged Continue duonebs, flutter valve nebulized mucomyst Start IV lasix Perforated duodenal ulcer Management per surgery Hypertension restart amlodipine once taking po History of CVA Aspirin to restart when ok with surgery Restart statin DVT ppx Heparin
--- NOTE | 2020-10-13 14:33 | PM.PNPUL ---
Subjective Subjective Date of Service: 10/13/20 Principal diagnosis: Hypoxemia Interval history: No significant improvement in oxygen requirements. Objective Data Labs CBC & Chem 7: 10/13/20 06:12 10/13/20 06:12 Labs: Laboratory Results - last 24 hr 10/13/20 10/13/20 06:12 06:12 WBC 9.2 RBC 3.25 L Hgb 8.0 L Hct 26.9 L MCV 82.8 MCH 24.6 L MCHC 29.7 L RDW 18.8 H Plt Count 364 MPV 9.1 L Immature Gran % (Auto) 2.0 H Neut % (Auto) 70.4 Lymph % (Auto) 13.7 L [place] % (Auto) 10.6 Eos % (Auto) 2.9 Baso % (Auto) 0.4 Lymph # (Auto) 1.3 [place] # (Auto) 1.0 Eos # (Auto) 0.3 Baso # (Auto) 0.0 Abs Immat Gran (auto) 0.18 H Absolute Neuts (auto) 6.5 Absolute Nucleated RBC 0.000 Nucleated RBC % (auto) 0.0 Sodium 143 Potassium 3.4 Chloride 109 H Carbon Dioxide 26 Anion Gap 11 L BUN 4 L Creatinine 0.58 Estim Creat Clear Calc 81.4 Estimated GFR > 60 Random Glucose 125 H Calcium 7.9 L Microbiology Microbiology Results: Microbiology 10/07/20 04:40 Blood - Venous Blood Culture - Final No growth after 5 days. 10/07/20 04:40 Blood - Venous Blood Culture - Final No growth after 5 days. Review of Systems Cardiovascular: Reports dyspnea on exertion Respiratory: Denies cough and Reports dyspnea on exertion Physical Exam Vital Signs: Vital Signs: Last Vital Signs Temp 98.0 F 10/13/20 12:00 Pulse 85 10/13/20 12:00 Resp 20 10/13/20 12:00 BP 146/71 H 10/13/20 12:00 Pulse Ox 92 10/13/20 12:00 Oxygen Flow Rate 50 10/13/20 05:54 Body Mass Index 34.7 Const: General: no acute distress, alert and awake Eyes: Sclerae: sclerae normal EOM: EOMs intact bilaterally Neck: Neck: Yes no lymphadenopathy, Yes trachea midline and Yes supple Resp: Effort & Inspection: normal respiratory effort and no respiratory distress Auscultation: crackles (Mild bilateral) Cardio: Rate: regular rate Rhythm: regular rhythm Heart sounds: no gallops, no murmurs and no rubs GI: Palpation (GI): Soft to palpation Auscultation: normal bowel sounds Extrem: General: No clubbing, No cyanosis and Yes pedal edema (1+ bilateral) Procedures Date of Service Date of Service: 10/13/20 Assessment and Plan Assessment and plan (1) Acute respiratory failure with hypoxia: Status: Acute Assessment and Plan: Impression: 80-year-old lady with underlying COPD admitted with abdominal pain status post duodenal ulcer repair on 10/07/2020 with hospital course further complicated by persistent hypoxemia requiring high-flow nasal cannula with minimal improvement. Overall foreign have L positive since admission with 1+ bilateral lower extremity edema. Recommendation: Rarely patient's after repair of duodenal/gastric ulcer can developed rapid progressive pulmonary fibrosis, will repeat CT chest for further evaluation. Consider further diuresis. (2) COPD (chronic obstructive pulmonary disease): Status: Acute Time Spent With Patient Time with patient: 15 - 24 minutes
--- NOTE | 2020-10-13 15:53 | PM.EVENT ---
Event Note Date of Service: 10/13/20 Event Note: pt continues to do well now on O2 by NC at 4 lpm seen by PT - Rehab facility on discharge recommended HENRY output has remained scanty - dc'ed this afternoon OOB incentive spirometry possible dc to Rehab on Friday or Friday explained to pt will need to continue PPI on discharge avoid NSAIDs including meloxicam
--- NOTE | 2020-10-13 16:14 | P.DS_ITS ---
DS: Providers Provider Date of Service: 10/14/20 <Hannah Ayala MD - Last Filed: 10/14/20 16:13> Date of admission: 10/07/20 05:06 <David Farrell MD - Last Filed: 10/13/20 16:18> Primary care physician: Susy Traore NP <David Farrell MD - Last Filed: 10/13/20 16:18> Consults: 10/07/20 08:08 Consult to Hospitalist Routine Consulting Provider: Hospitalist Reason For Exam: COPD, HTN 10/07/20 15:29 Consult to Pulmonology Routine Consulting Provider: Adrian Ahn Reason for consultation: hypoxia, copd 10/07/20 16:20 Consult Respiratory Therapy Routine Reason for consultation: acapella device <David Farrell MD - Last Filed: 10/13/20 16:18> DS: Diagnosis Discharge Diagnosis (1) Acute respiratory failure with hypoxia: Status: Acute <David Farrell MD - Last Filed: 10/13/20 16:18> (2) COPD (chronic obstructive pulmonary disease): Status: Acute <David Farrell MD - Last Filed: 10/13/20 16:18> (3) Perforated viscus: Status: Acute <David Farrell MD - Last Filed: 10/13/20 16:18> Problem details: [age] year female admitted on October 07, 2020 because of abdominal pain. She CAT scan showed pneumoperitoneum. She underwent laparotomy that same day and was noted to have a perforated duodenal ulcer. She underwent repair with omental patching. She tolerated procedure well. She was transferred to the [facility] unit postop but required high-flow oxygen because of her COPD. She continued to require high-flow oxygen by nasal cannula for several days until she was switched to regular cannula on postop day 7. She had an NG tube in place which was removed on postop day number 4. She had a HENRY drain in place as postop day 6. She was started on clear liquids on postop day 4. And was slowly advanced to regular food. She also was started on proton pump inhibitor because of her perforated ulcer. <David Farrell MD - Last Filed: 10/13/20 16:18> DS: Medications Discharge Medications Home Medications: Home Medications Medication Instructions Recorded Confirmed amlodipine [Norvasc] 1 tab PO DAILY 09/13/20 10/07/20 acetaminophen [Tylenol Extra 1,000 mg PO Q6H PRN 10/07/20 10/07/20 Strength] aspirin 81 mg PO DAILY 10/07/20 10/07/20 calcium phos,dibas-vitamin D3 400 tab PO DAILY 10/07/20 10/07/20 [Vitamin D (with calcium)] furosemide [Lasix] 40 mg PO BID 10/07/20 10/07/20 Previous Rx's Medication Instructions Recorded potassium chloride 10 mEq 10 meq PO DAILY 90 Days #90 tab 07/03/20 tablet,extended release(part/cryst) lidocaine 1 patch TOPICAL DAILY PRN #10 ea 09/15/20 meloxicam 15 mg tablet 15 mg PO DAILY 30 Days #30 tab 09/18/20 <David Farrell MD - Last Filed: 10/13/20 16:18> DS: Summary Hospital Course Hospital Course: This is a 80-year-old lady who presents to the [facility] Emergency Department on October 07 after developing severe onset of acute abdominal pain. She was worked up in the emergency department with a CT scan of the abdomen and pelvis as well as a chest CT. To found to have gross pneumoperitoneum on the CT scan the abdomen and the chest CT. Patient had significant shortness of breath and hypoxemia. She was found to have emphysema on the CT scan of the chest. Patient was taken to the operating room by Dr. Farrell for a exploratory laparotomy and Robbie patch repair of a perforated duodenal ulcer. NG tube was left in place. Patient kept NG tube in place while there was bilious drainage and was noted to have decrease in NG tube output and the NG tube was removed on 10/10/2020. Patient continue to require high amounts of oxygen by nasal cannula for hypoxemia. A Medicine consultation was obtained as well as a pulmonary consultation. Patient also had physical therapy consultation and recommendation for discharge to rehab facility at discharge was made. Patient was started on a clear liquid diet and slowly advanced to regular diet which she tolerated well. Patient was ready for discharge on October 14 2020. patient was discharged to rehab on 10/15/2020. <David Farrell MD - Last Filed: 10/13/20 16:18> Time Spent with Patient Time attestation: Total time spent providing and/or coordinating discharge services: <David Farrell MD - Last Filed: 10/13/20 16:18> Discharge coordination time: Less than 30 minutes <Hannah Ayala MD - Last Filed: 10/14/20 16:13> Quality: Stroke Does the patient have a stroke diagnosis?: No <Hannah Ayala MD - Last Filed: 10/14/20 16:13> Physical Exam Vital Signs: Vital Signs: Last Vital Signs Temp 97.7 F 10/13/20 15:31 Pulse 84 10/13/20 15:42 Resp 20 10/13/20 15:31 BP 149/75 H 10/13/20 15:31 Pulse Ox 90 L 10/13/20 15:31 Oxygen Flow Rate 50 10/13/20 05:54 Body Mass Index 34.7 <David Farrell MD - Last Filed: 10/13/20 16:18> Const: General: comfortable and no acute distress <David Farrell MD - Last Filed: 10/13/20 16:18> Orientation/consciousness: patient oriented x3 <David Farrell MD - Last Filed: 10/13/20 16:18> Neck: Neck: Yes no lymphadenopathy <David Farrell MD - Last Filed: 10/13/20 16:18> Resp: Auscultation: clear to auscultation bilaterally <David Farrell MD - Last Filed: 10/13/20 16:18> Cardio: Rhythm: regular rhythm <David Farrell MD - Last Filed: 10/13/20 16:18> GI: Other: Incision clean and dry and healing well <David Farrell MD - Last Filed: 10/13/20 16:18> Palpation (GI): Soft to palpation, nontender and no guarding <David Farrell MD - Last Filed: 10/13/20 16:18> Neuro: General: patient oriented x3 <David Farrell MD - Last Filed: 10/13/20 16:18> DS: Data Data Completed and Pending Labs on day of discharge: Laboratory Results - last 24 hr 10/13/20 10/13/20 06:12 06:12 WBC 9.2 RBC 3.25 L Hgb 8.0 L Hct 26.9 L MCV 82.8 MCH 24.6 L MCHC 29.7 L RDW 18.8 H Plt Count 364 MPV 9.1 L Immature Gran % (Auto) 2.0 H Neut % (Auto) 70.4 Lymph % (Auto) 13.7 L [place] % (Auto) 10.6 Eos % (Auto) 2.9 Baso % (Auto) 0.4 Lymph # (Auto) 1.3 [place] # (Auto) 1.0 Eos # (Auto) 0.3 Baso # (Auto) 0.0 Abs Immat Gran (auto) 0.18 H Absolute Neuts (auto) 6.5 Absolute Nucleated RBC 0.000 Nucleated RBC % (auto) 0.0 Sodium 143 Potassium 3.4 Chloride 109 H Carbon Dioxide 26 Anion Gap 11 L BUN 4 L Creatinine 0.58 Estim Creat Clear Calc 81.4 Estimated GFR > 60 Random Glucose 125 H Calcium 7.9 L <David Farrell MD - Last Filed: 10/13/20 16:18> Discharge Plan Discharge Anticipated Discharge Date/Time: 10/14/20 15:59 <David Farrell MD - Last Filed: 10/13/20 16:18> Patient Disposition: Xf SNF <David Farrell MD - Last Filed: 10/13/20 16:18> Discharge Diagnosis: perforated gastric ulcer <David Farrell MD - Last Filed: 10/13/20 16:18> perforated gastric ulcer <Hannah Ayala MD - Last Filed: 10/14/20 16:13> Referrals: David Farrell MD [Physician] - 1 Week Susy Traore NP [Primary Care Provider] - 1 Week <David Farrell MD - Last Filed: 10/13/20 16:18> Discharge Medications: New omeprazole 20 mg Capsule,Delayed Release(Dr/Ec) 20 mg PO BID@0630,1630 30 Days Qty: 60 RF: 0 Continued amlodipine [Norvasc] 5 mg tablet 1 tab PO DAILY RF: 0 acetaminophen [Tylenol Extra Strength] 500 mg Tablet 1,000 mg PO Q6H PRN (Reason: Pain) RF: 0 calcium phos,dibas-vitamin D3 77-400 mg-unit Tablet 400 tab PO DAILY RF: 0 aspirin 81 mg PO DAILY RF: 0 furosemide [Lasix] 40 mg tablet 40 mg PO BID RF: 0 lidocaine 4 % adhesive patch,medicated 1 patch topical DAILY PRN (Reason: pain) Qty: 10 RF: 0 potassium chloride [Klor-Con M10] 10 mEq tablet,ER particles/crystals 10 meq PO DAILY 90 Days Qty: 90 RF: 1 Discontinued meloxicam 15 mg tablet 15 mg PO DAILY 30 Days Qty: 30 RF: 1 <David Farrell MD - Last Filed: 10/13/20 16:18> Discharge Orders: Discharge Order (Routine); Ordered 10/14/20 Ordered By: Hannah Ayala <David Farrell MD - Last Filed: 10/13/20 16:18> Diet: regular diet <David Farrell MD - Last Filed: 10/13/20 16:18> regular diet <Hannah Ayala MD - Last Filed: 10/14/20 16:13> Activity on Discharge: No heavy lifting <David Farrell MD - Last Filed: 10/13/20 16:18> No heavy lifting <Hannah Ayala MD - Last Filed: 10/14/20 16:13> Stand Alone Forms: Patient Portal Discharge page <David Farrell MD - Last Filed: 10/13/20 16:18> Activity Restrictions/Additional Instructions: OK to shower No lifting more than 20 lbs Ffup in office in 1-2 weeks for removal of sutures <David Farrell MD - Last Filed: 10/13/20 16:18> Care Plan Goals: smoking cessation pain management <David Farrell MD - Last Filed: 10/13/20 16:18> Health Concerns: COPD, long hx of smoking <David Farrell MD - Last Filed: 10/13/20 16:18> Plan of Treatment: maintain O2 sats continue Prilosec avoid NSAIDS including meloxicam, ibuprofen <David Farrell MD - Last Filed: 10/13/20 16:18> Assessment: doing well postop <David Farrell MD - Last Filed: 10/13/20 16:18>
[2020-10-13] MEDS: Omeprazole 20 MG CAPSULE.DR PO (17:13)
[2020-10-13] MEDS: Acetaminophen 325 MG TABLET 650 MG PO (20:53)
[2020-10-14] VITALS (13 sets, daily range): BP systolic 110–164; BP diastolic 57–78; PULSE 72–105; RESP 15–19; TEMP 36.2–36.9; O2SAT 90–94
[2020-10-14] MEDS: Piperacillin Sodium/Tazobactam 3.375 GM in 0.9 % Sodium Chloride 50 ML IV (02:25)
[2020-10-14] MEDS: Acetaminophen 325 MG TABLET 650 MG PO (03:29)
[2020-10-14] MEDS: Omeprazole 20 MG CAPSULE.DR PO ×2 (06:25→16:14)
[2020-10-14 07:17] LABS: MANUAL DIFF FLAG NO
[2020-10-14 07:23] LABS: Basophils Absolute Auto 0.1 X10*3/uL (0.0-0.2); Basophils Percent Auto 0.5 % (0-2); Eosinophils Absolute Auto 0.3 X10*3/uL (0.0-0.4); Eosinophils Percent Auto 2.6 % (0-4); Hematocrit 27.6 % (37-47); Hemoglobin 8.1 g/dl (12.0-16.0); Imm Gran Abs Auto 0.24 X10*3/uL (0.00-0.03); Lymphocytes Absolute Auto 1.5 X10*3/uL (1.2-4.9); Lymphocytes Percent Auto 12.4 % (20-40); Mean Corpuscular HGB Conc 29.3 g/dl (31.0-35.0); Mean Corpuscular Hemoglobin 24.1 pg (27.0-33.0); Mean Corpuscular Volume 82.1 fL (80-98); Mean Platelet Volume 9.4 fL (9.4-12.3); Monocytes Percent Auto 8.6 % (2-11); Neutrophils Absolute Auto 8.9 X10*3/uL (2.0-8.3); Neutrophils Percent Auto 73.9 % (45-73); Platelet Count 405 X10*3/uL (160-400); Red Blood Count 3.36 X10*6/uL (4.20-5.50); Red Cell Distribution Width 18.6 % (11.0-16.0); White Blood Count 12.1 X10*3/uL (4.8-10.8)
[2020-10-14] MEDS: Albuterol/Iprat 2.5/0.5MG 3 ML AMPUL.NEB INHALE ×4 (07:58→20:24)
[2020-10-14 08:03] LABS: B Type Natriuretic Peptide 185 pg/mL (<100)
[2020-10-14 08:08] LABS: Blood Urea Nitrogen 7 mg/dL (9-16); Calcium 8.2 mg/dL (8.4-10.2); Creatinine Clr Calc Pharmacy 78.7; Estimated Glomerular Filt Rate > 60; Glucose Random 130 mg/dL (60-115)
[2020-10-14 08:28] LABS: Anion Gap 13 (12-20); Carbon Dioxide 28 mmol/L (22-29); Chloride 105 mmol/L (96-108); Potassium 3.1 mmol/L (3.3-5.1); Sodium 143 mmol/L (135-145)
[2020-10-14] MEDS: Heparin Sodium,Porcine 5,000 UNIT/ML VIAL 5000 UNIT SUBCUT ×2 (08:43→21:09)
[2020-10-14] MEDS: Nicotine 14 MG PATCH.TD24 TRANSDERMA (08:43)
[2020-10-14] MEDS: amLODIPine Besylate 5 MG TABLET PO (08:43)
[2020-10-14] MEDS: Aspirin Enteric Coated 81 MG TABLET.DR PO (08:43)
--- NOTE | 2020-10-14 10:01 | PM.PNPUL ---
Subjective Subjective Date of Service: 10/14/20 Principal diagnosis: Hypoxemia Interval history: FiO2 requirements significantly improved with diuresis. Objective Data Labs CBC & Chem 7: 10/14/20 07:06 10/14/20 07:06 Labs: Laboratory Results - last 24 hr 10/14/20 10/14/20 10/14/20 07:06 07:06 07:06 WBC 12.1 H RBC 3.36 L Hgb 8.1 L Hct 27.6 L MCV 82.1 MCH 24.1 L MCHC 29.3 L RDW 18.6 H Plt Count 405 H MPV 9.4 Immature Gran % (Auto) 2.0 H Neut % (Auto) 73.9 H Lymph % (Auto) 12.4 L [place] % (Auto) 8.6 Eos % (Auto) 2.6 Baso % (Auto) 0.5 Lymph # (Auto) 1.5 [place] # (Auto) 1.0 Eos # (Auto) 0.3 Baso # (Auto) 0.1 Abs Immat Gran (auto) 0.24 H Absolute Neuts (auto) 8.9 H Absolute Nucleated RBC 0.000 Nucleated RBC % (auto) 0.0 Sodium 143 Potassium 3.1 L Chloride 105 Carbon Dioxide 28 Anion Gap 13 BUN 7 L D Creatinine 0.60 Estim Creat Clear Calc 78.7 Estimated GFR > 60 Random Glucose 130 H Calcium 8.2 L B-Natriuretic Peptide 185 H Microbiology Microbiology Results: Microbiology 10/07/20 04:40 Blood - Venous Blood Culture - Final No growth after 5 days. 10/07/20 04:40 Blood - Venous Blood Culture - Final No growth after 5 days. Review of Systems Cardiovascular: Reports dyspnea on exertion Respiratory: Reports dyspnea on exertion Physical Exam Vital Signs: Vital Signs: Last Vital Signs Temp 98.0 F 10/14/20 07:37 Pulse 76 10/14/20 07:59 Resp 19 10/14/20 07:37 BP 151/77 H 10/14/20 07:37 Pulse Ox 93 10/14/20 09:37 Oxygen Flow Rate 6 10/14/20 05:41 Body Mass Index 34.7 Const: General: no acute distress, alert and awake Eyes: Sclerae: sclerae normal EOM: EOMs intact bilaterally Neck: Neck: Yes no lymphadenopathy, Yes trachea midline and Yes supple Resp: Effort & Inspection: normal respiratory effort and no respiratory distress Auscultation: crackles (Bibasilar) Cardio: Rate: regular rate Rhythm: regular rhythm Heart sounds: no gallops, no murmurs and no rubs GI: Palpation (GI): Soft to palpation and Other GI palpation findings present ( Nontender) Auscultation: normal bowel sounds Extrem: General: No clubbing, No cyanosis and Yes pedal edema (Trace bilateral) Procedures Date of Service Date of Service: 10/14/20 Assessment and Plan Assessment and plan (1) COPD (chronic obstructive pulmonary disease): Status: Acute Assessment and Plan: Impression: 80-year-old lady with underlying COPD admitted with abdominal pain status post duodenal ulcer repair on 10/07/2020 with hospital course further complicated by persistent hypoxemia requiring high-flow nasal cannula initially minimal improvement. Now with significant improvement in FiO2 requirements with diuresis. Recommendation: CT chest with no evidence of rapid fibrosis. Agree with further diuresis. (2) COPD (chronic obstructive pulmonary disease): (2) Acute respiratory failure with hypoxia: Status: Acute Time Spent With Patient Time with patient: 15 - 24 minutes
--- NOTE | 2020-10-14 11:25 | MHC.CM.PN ---
CM informed pt may DC this weekend pending STR placement. Per records, a referral was made to [facility] on 10/13/20, however they have not provided a decision on acceptance. CM met with pt who reports she was given a list of STR's by the previous CM and she is not happy with any of them. She reviewed the list again in CM presence and requested referrals be sent to [facility] and [place] but also asks that [facility] be contacted again. An update and request for response has been sent to [facility] and the referral has been opened to [facility] and [place]. DC plan is STR. Referrals placed to #1 [facility] #2 [facility] #3 [place]
--- NOTE | 2020-10-14 12:44 | HO.PM.IMPN ---
Subjective Subjective Date of Service: 10/14/20 Interval History: The patient was seen and evaluated this morning Laying in bed, feels comfortable overall Oxygen requirement decreased to 4 L this morning Denies any fever, chills or shortness of breath No reported other overnight events Systemic review: No fever, chills but reports some pain in and weakness No chest pain, palpitation No shortness of breath or coughing Mild abdominal pain, no nausea or vomiting No urinary symptoms No any rash or wounds Physical Exam Vital Signs: Vital Signs: Last Vital Signs Temp 97.2 F 10/14/20 11:13 Pulse 84 10/14/20 11:30 Resp 16 10/14/20 11:13 BP 164/75 H 10/14/20 11:13 Pulse Ox 92 10/14/20 11:13 Oxygen Flow Rate 6 10/14/20 05:41 Body Mass Index 34.7 Const: Other: Constitutional : Alert, oriented, in mild distress Neck : Normal inspection, Supple Cardiovascular : RRR, S1 S2, no lower extremity edema Respiratory : Good bilateral air entry, no crackles, wheezes or rhonchi, On 4 L nasal cannula for O2 supplement Gastrointestinal: soft, lax, Normal bowel sounds, Non tender Skin : Warm/Dry, No rash Neurological : Alert & oriented x3, No focal deficit Objective Data Current Medications Generic Name Dose Route Start Last Admin Trade Name Mitchq PRN Reason Stop Dose Admin Acetaminophen 650 mg 10/12/20 21:04 10/14/20 03:29 Acetaminophen 325 Mg Tablet PO 650 mg Q6H PRN Administration Pain, Mild (Pain Scale 1-3) Albuterol/Ipratropium 3 ml 10/07/20 20:00 10/14/20 11:30 Albuterol/Iprat 2.5/0.5mg 3 Ml Ampul.Neb INHALE 3 ml RQ4H WHILE AWAKE D[facility]ON Administration Amlodipine Besylate 5 mg 10/14/20 09:00 10/14/20 08:43 Amlodipine Besylate 5 Mg Tablet PO 5 mg DAILY [facility]ON Administration Protocol Aspirin 81 mg 10/13/20 09:00 10/14/20 08:43 Aspirin Enteric Coated 81 Mg Tablet. PO 81 mg DAILY D[facility]ON Administration Furosemide 40 mg 10/14/20 11:55 Furosemide 40 Mg Tablet PO BID@0900,1800 [facility] Protocol Heparin Sodium (Porcine) 5,000 unit 10/08/20 10:15 10/14/20 08:43 Heparin Sodium,Porcine 5,000 Unit/Ml Vial SUBCUT 5,000 unit Q12H D[facility]ON Administration Nicotine 14 mg 10/08/20 09:00 10/14/20 08:43 Nicotine 14 Mg Patch.Td24 TRANSDERMA 14 mg DAILY D[facility]ON Administration Omeprazole 20 mg 10/13/20 16:30 10/14/20 06:25 Omeprazole 20 Mg Capsule.Dr PO 20 mg BID@0630,1630 [facility] Administration Ondansetron HCl 4 mg 10/07/20 06:59 Ondansetron Hcl 4 Mg/2 Ml Vial IVPUSH ONCE PRN Nausea and Vomiting Ondansetron HCl 4 mg 10/07/20 09:15 Ondansetron Hcl 4 Mg/2 Ml Vial IVPUSH Q8H PRN nausea Labs CBC & Chem 7: 10/14/20 07:06 10/14/20 07:06 Microbiology Microbiology Results: Microbiology 10/07/20 04:40 Blood - Venous Blood Culture - Final No growth after 5 days. 10/07/20 04:40 Blood - Venous Blood Culture - Final No growth after 5 days. Assessment and Plan (1) Acute respiratory failure with hypoxia: Status: Acute (2) COPD (chronic obstructive pulmonary disease): Status: Acute (3) Atelectasis: Status: Acute Assessment and Plan: 80F presented with perforated duodenal ulcer, course complicated by acute hypoxic respiratory failure Acute hypoxic respiratory failure due to diastolic CHF exacerbation/mucus plugging/atelecatasis Discontinue zoysyn incentive spirometry encouraged Continue duonebs, flutter valve nebulized mucomyst Changed to p.o. Lasix Perforated duodenal ulcer Management per surgery Hypertension restart amlodipine once taking po History of CVA Aspirin to restart when ok with surgery Restart statin DVT ppx Heparin Dispo, placement at SNF
[2020-10-14] MEDS: Furosemide 40 MG TABLET PO ×2 (12:54→19:50)
[2020-10-14] MEDS: Potassium Chloride Packet 20 MEQ PACKET 40 MEQ PO (12:54)
--- NOTE | 2020-10-14 14:05 | PM.PNGS ---
Subjective Subjective Date of Service: 10/14/20 Interval history: Patient is about a week status post exploratory laparotomy with Robbie patch repair of perforated gastric/duodenal ulcer. Patient is doing well and is slowly improving in terms of respiratory status. Patient is tolerating a diet and moving her bowels and passing gas. Pain is well controlled. Patient has been out of bed to ambulate within the room. She is awaiting placement at a rehab facility. Vital signs have been within normal limits. Potassium was 3.1 and was replaced by the medicine team. Physical Exam Vital Signs: Vital Signs: Last Vital Signs Temp 97.2 F 10/14/20 11:13 Pulse 84 10/14/20 11:30 Resp 16 10/14/20 11:13 BP 164/75 H 10/14/20 11:13 Pulse Ox 92 10/14/20 11:13 Oxygen Flow Rate 6 10/14/20 05:41 Body Mass Index 34.7 Const: General: cooperative, healthy appearing, comfortable and no acute distress GI: Inspection: No distended and Yes incision (Incision clean dry intact with tana in place. No erythema or drainage) Palpation (GI): Soft to palpation, nontender, no guarding, not rigid and hepatosplenomegaly present Extrem: General: Yes normal to inspection, Yes no clubbing, cyanosis or edema and No calf tenderness Progress Note: A&P Assessment and plan (1) Status post exploratory laparotomy: Status: Acute Assessment and Plan: This is a 72-year-old lady about 1 week status post exploratory laparotomy with Robbie patch repair of perforated duodenal ulcer. Patient is slowly improving in terms of respiratory status. She is awaiting placement at a rehab facility. Continue regular diet and encourage ambulation as able. We will discharge the patient to rehab facility once a bed becomes available. Fall Risk Details Current Medications: Current Medications Generic Name Dose Route Start Last Admin Trade Name Freq PRN Reason Stop Dose Admin Acetaminophen 650 mg 10/12/20 21:04 10/14/20 03:29 Acetaminophen 325 Mg Tablet PO 650 mg Q6H PRN Administration Pain, Mild (Pain Scale 1-3) Albuterol/Ipratropium 3 ml 10/07/20 20:00 10/14/20 11:30 Albuterol/Iprat 2.5/0.5mg 3 Ml Ampul.Neb INHALE 3 ml RQ4H WHILE AWAKE [facility] Administration Amlodipine Besylate 5 mg 10/14/20 09:00 10/14/20 08:43 Amlodipine Besylate 5 Mg Tablet PO 5 mg DAILY [facility] Administration Protocol Aspirin 81 mg 10/13/20 09:00 10/14/20 08:43 Aspirin Enteric Coated 81 Mg Tablet. PO 81 mg DAILY [facility] Administration Furosemide 40 mg 10/14/20 11:55 10/14/20 12:54 Furosemide 40 Mg Tablet PO 40 mg BID@0900,1800 [facility] Administration Protocol Heparin Sodium (Porcine) 5,000 unit 10/08/20 10:15 10/14/20 08:43 Heparin Sodium,Porcine 5,000 Unit/Ml Vial SUBCUT 5,000 unit Q12H [facility] Administration Nicotine 14 mg 10/08/20 09:00 10/14/20 08:43 Nicotine 14 Mg Patch.Td24 TRANSDERMA 14 mg DAILY [facility] Administration Omeprazole 20 mg 10/13/20 16:30 10/14/20 06:25 Omeprazole 20 Mg Capsule. PO 20 mg BID@0630,1630 [facility] Administration Ondansetron HCl 4 mg 10/07/20 06:59 Ondansetron Hcl 4 Mg/2 Ml Vial IVPUSH ONCE PRN Nausea and Vomiting Ondansetron HCl 4 mg 10/07/20 09:15 Ondansetron Hcl 4 Mg/2 Ml Vial IVPUSH Q8H PRN nausea Oxycodone HCl 2.5 mg 10/14/20 13:57 Oxycodone Hcl Immed Release 5 Mg Tablet PO Q6H PRN Pain, Severe (Pain Scale 7-10) Time Spent With Patient Time: Total time spent is greater than 50% in coordination of care (as documented) at patient's floor/unit and/or counseling patient: Time with patient: less than 15 minutes Procedures Date of Service Date of Service: 10/14/20
[2020-10-14] MEDS: oxyCODONE HCl Immed Release 5 MG TABLET 2.5 MG PO ×2 (14:08→21:08)
--- NOTE | 2020-10-14 16:04 | MHC.CM.PN ---
ANKIT MET WITH PT WHO CONFIRMS SHE WOULD PREFER [facility] IF SHE CANNOT GO TO [facility]. SHE IS AWARE SHE WILL LIKELY DC TOMORROW AND ASKS THAT T/W SPEAK TO HER DAUGHTER. ANKIT CALLED PTS DAUGHTER, MARLENE TYLER ([phone]) TO DISCUSS DC PLANNING. SHE REPORTS SHE WOULD ALSO PREFER [facility] AND IS AGREEABLE TO PT DISCHARGING TO [facility] TOMORROW. ANKIT WILL UPDATE HER IN THE MORNING ONCE DC TIME IS KNOWN
[2020-10-15] MEDS: Acetaminophen 325 MG TABLET 650 MG PO (00:21)
[2020-10-15 03:15] VITALS: BP 150/69; PULSE 91; RESP 18; TEMP 36.1; O2SAT 90
[2020-10-15 05:32] VITALS: O2SAT 90
[2020-10-15] MEDS: Omeprazole 20 MG CAPSULE.DR PO (05:53)
[2020-10-15 07:27] VITALS: BP 151/77; PULSE 71; RESP 20; TEMP 36.7; O2SAT 91
[2020-10-15] MEDS: Albuterol/Iprat 2.5/0.5MG 3 ML AMPUL.NEB INHALE ×2 (07:49→11:49)
[2020-10-15 07:51] VITALS: PULSE 71; O2SAT 91
[2020-10-15] MEDS: Nicotine 14 MG PATCH.TD24 TRANSDERMA (08:07)
[2020-10-15] MEDS: oxyCODONE HCl Immed Release 5 MG TABLET 2.5 MG PO (08:09)
[2020-10-15] MEDS: Aspirin Enteric Coated 81 MG TABLET.DR PO (08:10)
[2020-10-15] MEDS: amLODIPine Besylate 5 MG TABLET PO (08:10)
[2020-10-15] MEDS: Furosemide 20 MG TABLET 60 MG PO (08:10)
--- NOTE | 2020-10-15 10:28 | HO.PM.IMPN ---
Subjective Subjective Date of Service: 10/15/20 Interval History: The patient was seen and evaluated this morning Laying in bed, feels comfortable overall with no dyspnea or SOB Oxygen requirement decreased to 3-4 L this morning Denies any fever, chills or abdominal pain No reported other overnight events Systemic review: No fever or chills No chest pain, palpitation No shortness of breath or coughing Mild abdominal pain, no nausea or vomiting No urinary symptoms No any rash or wounds Physical Exam Vital Signs: Vital Signs: Last Vital Signs Temp 98.0 F 10/15/20 07:27 Pulse 71 10/15/20 07:51 Resp 20 10/15/20 07:27 BP 151/77 H 10/15/20 07:27 Pulse Ox 91 L 10/15/20 07:27 Oxygen Flow Rate 4 10/15/20 05:32 Body Mass Index 34.7 Const: Other: Constitutional : Alert, oriented, in mild distress Neck : Normal inspection, Supple Cardiovascular : RRR, S1 S2, no lower extremity edema Respiratory : Good bilateral air entry, no crackles, wheezes or rhonchi, On 3-4 L nasal cannula for O2 supplement Gastrointestinal: soft, lax, Normal bowel sounds, Non tender Skin : Warm/Dry, No rash Neurological : Alert & oriented x3, No focal deficit Objective Data Current Medications Generic Name Dose Route Start Last Admin Trade Name Luh PRN Reason Stop Dose Admin Acetaminophen 650 mg 10/12/20 21:04 10/15/20 00:21 Acetaminophen 325 Mg Tablet PO 650 mg Q6H PRN Administration Pain, Mild (Pain Scale 1-3) Albuterol/Ipratropium 3 ml 10/07/20 20:00 10/15/20 07:49 Albuterol/Iprat 2.5/0.5mg 3 Ml Ampul.Neb INHALE 3 ml RQ4H WHILE AWAKE [facility] Administration Amlodipine Besylate 5 mg 10/14/20 09:00 10/15/20 08:10 Amlodipine Besylate 5 Mg Tablet PO 5 mg DAILY [facility] Administration Protocol Aspirin 81 mg 10/13/20 09:00 10/15/20 08:10 Aspirin Enteric Coated 81 Mg Tablet. PO 81 mg DAILY [facility] Administration Furosemide 60 mg 10/15/20 09:00 10/15/20 08:10 Furosemide 20 Mg Tablet PO 60 mg BID@0900,1800 [facility] Administration Protocol Heparin Sodium (Porcine) 5,000 unit 10/08/20 10:15 10/14/20 21:09 Heparin Sodium,Porcine 5,000 Unit/Ml Vial SUBCUT 5,000 unit Q12H [facility] Administration Nicotine 14 mg 10/08/20 09:00 10/15/20 08:07 Nicotine 14 Mg Patch.Td24 TRANSDERMA 14 mg DAILY [facility] Administration Omeprazole 20 mg 10/13/20 16:30 10/15/20 05:53 Omeprazole 20 Mg Capsule.Dr PO 20 mg BID@0630,1630 [facility] Administration Ondansetron HCl 4 mg 10/07/20 06:59 Ondansetron Hcl 4 Mg/2 Ml Vial IVPUSH ONCE PRN Nausea and Vomiting Ondansetron HCl 4 mg 10/07/20 09:15 Ondansetron Hcl 4 Mg/2 Ml Vial IVPUSH Q8H PRN nausea Oxycodone HCl 2.5 mg 10/14/20 13:57 10/15/20 08:09 Oxycodone Hcl Immed Release 5 Mg Tablet PO 2.5 mg Q6H PRN Administration Pain, Severe (Pain Scale 7-10) Labs CBC & Chem 7: 10/14/20 07:06 10/14/20 07:06 Microbiology Microbiology Results: Microbiology 10/07/20 04:40 Blood - Venous Blood Culture - Final No growth after 5 days. 10/07/20 04:40 Blood - Venous Blood Culture - Final No growth after 5 days. Assessment and Plan (1) Acute respiratory failure with hypoxia: Status: Acute (2) COPD (chronic obstructive pulmonary disease): Status: Acute (3) Atelectasis: Status: Acute Assessment and Plan: 80F presented with perforated duodenal ulcer, course complicated by acute hypoxic respiratory failure Acute hypoxic respiratory failure due to diastolic CHF exacerbation/mucus plugging/atelecatasis Discontinue zoysyn incentive spirometry encouraged Continue duonebs, flutter valve nebulized mucomyst Continue p.o. Lasix Continue to wean down O2 at SNF Perforated duodenal ulcer Management per surgery To dc on Omeprazole Hypertension restart amlodipine History of CVA Aspirin statin DVT ppx Heparin Dispo, placement at SNF
--- NOTE | 2020-10-15 10:33 | MHC.CM.PN ---
Addendum entered by Laure Pugh 10/15/20 12:32: Updated COVID-19 test results and DC summary sent to SNF via [employer] at 12:29 hours. Pt set to DC via BLS at 1300 hours Original Note: CM MET WITH PT REGARDING DC PLANS. PT IS AWARE [facility] HAS NOT PROVIDED A RESPONSE HOWEVER PTS SECOND CHOICE FACILITY, [facility], IS PREPARED TO ADMIT HER TODAY. A DC TIME OF 1300 HOURS WAS AGREED ON AND CM ALSO CONTACTED PTS DAUGHTER, MARLENE TYLER ([phone]) WITH THE ABOVE INFORMATION. PT WILL DC TODAY AT 1300 HOURS TO [facility] FOR STR. PT WILL BE TRANSPORTED VIA [facility]
[2020-10-15 11:53] LABS: COVID-19 Test Negative (Negative)
--- NOTE | 2020-10-15 12:37 | P.PNGS_ITS ---
Subjective Subjective Date of Service: 10/15/20 Interval history: No overnight events. Patient is tolerating regular diet without difficulty and is having evidence of bowel function. [facility] Physical Exam Vital Signs: Vital Signs: Last Vital Signs Temp 98.0 F 10/15/20 07:27 Pulse 71 10/15/20 07:51 Resp 20 10/15/20 07:27 BP 151/77 H 10/15/20 07:27 Pulse Ox 91 L 10/15/20 07:27 Oxygen Flow Rate 4 10/15/20 05:32 Body Mass Index 34.7 Const: General: cooperative, healthy appearing, comfortable and no acute distress GI: Inspection: No distended and Yes incision (Incision clean dry intact with tana in place. No erythema or drainage) Palpation (GI): Soft to palpation, nontender, no guarding, not rigid and hepatosplenomegaly present Extrem: General: Yes normal to inspection, Yes no clubbing, cyanosis or edema and No calf tenderness Progress Note: A&P Assessment and plan (1) Status post exploratory laparotomy: Status: Acute Assessment and Plan: Patient doing well status post Robbie patch repair of perforated duodenal ulcer. Patient will be discharged amount [facility] facility. Patient should follow up with Dr. Farrell in about 1 weeks time frame. Fall Risk Details Current Medications: Current Medications Generic Name Dose Route Start Last Admin Trade Name Freq PRN Reason Stop Dose Admin Acetaminophen 650 mg 10/12/20 21:04 10/15/20 00:21 Acetaminophen 325 Mg Tablet PO 650 mg Q6H PRN Administration Pain, Mild (Pain Scale 1-3) Albuterol/Ipratropium 3 ml 10/07/20 20:00 10/15/20 11:49 Albuterol/Iprat 2.5/0.5mg 3 Ml Ampul.Neb INHALE 3 ml RQ4H WHILE AWAKE D[facility]ON Administration Amlodipine Besylate 5 mg 10/14/20 09:00 10/15/20 08:10 Amlodipine Besylate 5 Mg Tablet PO 5 mg DAILY [facility]ON Administration Protocol Aspirin 81 mg 10/13/20 09:00 10/15/20 08:10 Aspirin Enteric Coated 81 Mg Tablet. PO 81 mg DAILY D[facility]ON Administration Furosemide 60 mg 10/15/20 09:00 10/15/20 08:10 Furosemide 20 Mg Tablet PO 60 mg BID@0900,1800 [facility]ES [facility] Administration Protocol Heparin Sodium (Porcine) 5,000 unit 10/08/20 10:15 10/15/20 11:14 Heparin Sodium,Porcine 5,000 Unit/Ml Vial SUBCUT Not Given Q12H COUNT INCLUDES THE [facility] Nicotine 14 mg 10/08/20 09:00 10/15/20 08:07 Nicotine 14 Mg Patch.Td24 TRANSDERMA 14 mg DAILY [facility]ON Administration Omeprazole 20 mg 10/13/20 16:30 10/15/20 05:53 Omeprazole 20 Mg Capsule.Dr PO 20 mg BID@0630,1630 COUNT [facility]CLUDES THE [facility] Administration Ondansetron HCl 4 mg 10/07/20 06:59 Ondansetron Hcl 4 Mg/2 Ml Vial IVPUSH ONCE PRN Nausea and Vomiting Ondansetron HCl 4 mg 10/07/20 09:15 Ondansetron Hcl 4 Mg/2 Ml Vial IVPUSH Q8H PRN nausea Oxycodone HCl 2.5 mg 10/14/20 13:57 10/15/20 08:09 Oxycodone Hcl Immed Release 5 Mg Tablet PO 2.5 mg Q6H PRN Administration Pain, Severe (Pain Scale 7-10) Time Spent With Patient Time: Total time spent is greater than 50% in coordination of care (as documented) at patient's floor/unit and/or counseling patient: Time with patient: less than 15 minutes Procedures Date of Service Date of Service: 10/15/20
== END 2020-10-15 13:38 | disposition skilled nursing facility (03) | DRG 329 ==
LOC: HO.ED 06:16 → HO.S3 09:08
PROVIDERS: Internal Medicine; Student in an Organized Health Care Education/Training Program; Surgery; Admitting Provider Surgery; Emergency Provider Emergency Medicine; PCP Hospitalist; Visit Provider Surgery
PROC: 0DU907Z Supplement Duodenum with Autologous Tissue Substitute, Open Approach (ICD-10-PCS; CPT 49000; principal; 2020-10-07 06:00)
DX: K63.1 Perforation of intestine (nontraumatic) (principal); J96.01 Acute respiratory failure with hypoxia; J69.0 Pneumonitis due to inhalation of food and vomit; I50.33 Acute on chronic diastolic (congestive) heart failure; K65.9 Peritonitis, unspecified; J98.11 Atelectasis; I11.0 Hypertensive heart disease with heart failure; F17.210 Nicotine dependence, cigarettes, uncomplicated; Z71.6 Tobacco abuse counseling; Z86.73 Personal history of transient ischemic attack (TIA), and cerebral infarction without residual deficits; J43.2 Centrilobular emphysema; Z20.822 Contact with and (suspected) exposure to COVID-19; Z88.2 Allergy status to sulfonamides; Z79.899 Other long term (current) drug therapy
CPT/HCPCS: 36415; 36600; 71045; 71250; 71275; 74177; 80048; 80076; 81003; 82009; 83605; 83690; 83880; 84484; 85025; 85027; 85610; 86850; 86900; 86901; 87040; 87635; 93005; 93306; 94640; 94664; 97162; 99024; 99285; J0131; J0690; J1100; J1170; J1940; J2250; J2270; J2405; J2543; J3010; Q9967

== ENCOUNTER 2020-10-23 00:30 | Outpatient (REF) | payer MEDICARE, SELFPAY ==
[2020-10-23 07:09] LABS: Hematocrit 32.3 % (37-47); Hemoglobin 9.5 g/dl (12.0-16.0); Mean Corpuscular HGB Conc 29.4 g/dl (31.0-35.0); Mean Corpuscular Hemoglobin 24.3 pg (27.0-33.0); Mean Corpuscular Volume 82.6 fL (80-98); Mean Platelet Volume 9.8 fL (9.4-12.3); Platelet Count 511 X10*3/uL (160-400); Red Blood Count 3.91 X10*6/uL (4.20-5.50); Red Cell Distribution Width 18.3 % (11.0-16.0); White Blood Count 10.8 X10*3/uL (4.8-10.8)
[2020-10-23 07:45] LABS: Blood Urea Nitrogen 15 mg/dL (9-16); Calcium 8.8 mg/dL (8.4-10.2); Estimated Glomerular Filt Rate > 60; Glucose Random 119 mg/dL (60-115)
[2020-10-23 08:05] LABS: Anion Gap 18 (12-20); Carbon Dioxide 27 mmol/L (22-29); Chloride 100 mmol/L (96-108); Potassium 4.3 mmol/L (3.3-5.1); Sodium 141 mmol/L (135-145)
== END 2020-10-23 00:31 | disposition home or self-care (01) ==
LOC: HO.MMNH1L 00:30
PROVIDERS: Visit Provider Family Medicine
DX: R09.02 Hypoxemia (principal); I10 Essential (primary) hypertension; M19.90 Unspecified osteoarthritis, unspecified site; Z98.890 Other specified postprocedural states
CPT/HCPCS: 36415; 80048; 85027; 99212

== ENCOUNTER 2020-10-30 07:06 | Outpatient (REF) | payer SELFPAY ==
[2020-10-30 07:07] LABS: Hematocrit 34.2 % (37-47); Hemoglobin 10.1 g/dl (12.0-16.0); Mean Corpuscular HGB Conc 29.5 g/dl (31.0-35.0); Mean Corpuscular Hemoglobin 24.3 pg (27.0-33.0); Mean Corpuscular Volume 82.4 fL (80-98); Mean Platelet Volume 10.2 fL (9.4-12.3); Platelet Count 366 X10*3/uL (160-400); Red Blood Count 4.15 X10*6/uL (4.20-5.50); Red Cell Distribution Width 17.9 % (11.0-16.0); White Blood Count 8.1 X10*3/uL (4.8-10.8)
[2020-10-30 07:42] LABS: Anion Gap 14 (12-20); Blood Urea Nitrogen 16 mg/dL (9-16); Calcium 9.4 mg/dL (8.4-10.2); Carbon Dioxide 30 mmol/L (22-29); Chloride 101 mmol/L (96-108); Estimated Glomerular Filt Rate > 60; Glucose Random 123 mg/dL (60-115); Potassium 4.5 mmol/L (3.3-5.1); Sodium 140 mmol/L (135-145)
== END 2020-10-30 07:07 | disposition home or self-care (01) ==
LOC: HO.MMNH1L 07:06
PROVIDERS: Visit Provider Family Medicine
DX: R09.02 Hypoxemia (principal); I10 Essential (primary) hypertension; M19.90 Unspecified osteoarthritis, unspecified site
CPT/HCPCS: 36415; 80048; 85027

== ENCOUNTER 2020-11-06 00:32 | Outpatient (REF) | payer SELFPAY | END 2020-11-06 00:33 | disposition home or self-care (01) | LOC: HO.MMNH1L 00:32 | PROVIDERS: Visit Provider Family Medicine | DX: Z13.89 Encounter for screening for other disorder (principal) ==

== ENCOUNTER 2021-04-19 18:48 | Outpatient (REF) | payer MEDICARE, SELFPAY ==
[2021-04-19 19:10] LABS: Appearance Urine HAZY; Color Urine YELLOW; Glucose Urine UA 500 MG/DL (NEG); Leukocyte Esterase Urine TRACE (NEG); Nitrite Urine NEG (NEG); Specific Gravity - Urine <= 1.005 (1.005-1.025); Urine Blood NEG (NEG); Urine Ketones 5 MG/DL (NEG); Urine Protein NEG (NEG-TRACE)
[2021-04-19 19:19] LABS: Squamous Epithelial Cell Urine 1+ /LPF
[2021-04-19 19:22] LABS: Bacteria Urine 2+ /LPF
== END 2021-04-19 18:49 | disposition home or self-care (01) ==
LOC: HO.LNP 18:48
PROVIDERS: Visit Provider Family Medicine
DX: Z00.00 Encounter for general adult medical examination without abnormal findings (principal); K92.1 Melena; R32 Unspecified urinary incontinence; R60.0 Localized edema
CPT/HCPCS: 81001; 81003

== ENCOUNTER → 2021-06-18 12:43 | Outpatient (BNVA) | payer MEDICARE, SELFPAY | DX: R32 Unspecified urinary incontinence (principal) | CPT/HCPCS: 51798; 99202 ==

== ENCOUNTER 2021-07-18 10:10 | Outpatient (REF) | payer MEDICARE, SELFPAY ==
[2021-07-18 13:14] LABS: Hemoglobin 9.5 g/dl (12.0-16.0); Mean Corpuscular HGB Conc 27.9 g/dl (31.0-35.0); Mean Corpuscular Hemoglobin 20.9 pg (27.0-33.0); Mean Corpuscular Volume 74.7 fL (80.0-98.0); Mean Platelet Volume 10.1 fL (9.4-12.3); Platelet Count 388 X10*3/uL (160-400); Red Blood Count 4.55 X10*6/uL (4.20-5.50); Red Cell Distribution Width 18.8 % (11.0-16.0); White Blood Count 8.3 X10*3/uL (4.8-10.8)
[2021-07-18 13:48] LABS: Alanine Aminotransferase 11 U/L (0-31); Albumin Level 3.7 g/dL (3.5-5.0); Alkaline Phosphatase 93 U/L (39-117); Anion Gap 15 (12-20); Aspartate Amino Transferase 16 U/L (5-31); Bilirubin Total 0.4 mg/dL (0.0-1.0); Blood Urea Nitrogen 11 mg/dL (9-16); Calcium 9.3 mg/dL (8.4-10.2); Carbon Dioxide 24 mmol/L (22-29); Chloride 104 mmol/L (96-108); Estimated Glomerular Filt Rate > 60; Glucose Random 285 mg/dL (60-115); Potassium 4.3 mmol/L (3.3-5.1); Sodium 139 mmol/L (135-145)
== END 2021-07-18 10:11 | disposition home or self-care (01) ==
LOC: HO.LAB 10:10
PROVIDERS: PCP Family Medicine; Visit Provider Nurse Practitioner Family
DX: K92.1 Melena (principal); K58.2 Mixed irritable bowel syndrome; K64.9 Unspecified hemorrhoids; K42.9 Umbilical hernia without obstruction or gangrene
CPT/HCPCS: 36415; 80053; 85027; 99202

== ENCOUNTER → 2021-07-27 11:22 | Outpatient (BNVA) | payer MEDICARE, SELFPAY | PROVIDERS: PCP Family Medicine | DX: N32.81 Overactive bladder (principal) | CPT/HCPCS: Q3014 ==

== ENCOUNTER → 2021-08-20 09:55 | Outpatient (BNVA) | payer MEDICARE, SELFPAY | PROVIDERS: PCP Family Medicine; Referring Provider Family Medicine; Visit Provider Surgery | DX: K42.9 Umbilical hernia without obstruction or gangrene (principal) | CPT/HCPCS: 99212 ==

== ENCOUNTER 2021-12-24 05:16 | Emergency (ER) | payer MEDICARE, SELFPAY ==
--- NOTE | ~2021-12-24 | XR_ITS ---
EXAMINATION: XR CHEST CLINICAL INFORMATION: Weakness. COMPARISON: 11/08/2020 chest radiographs. TECHNIQUE: 2 views of the chest were obtained. FINDINGS: No significant abnormality is noted involving the heart, lungs, mediastinum, bony thorax or soft tissues. Mild elevation of the right anterior hemidiaphragm without significant change. XR/XR chest 2V IMPRESSION: No acute cardiopulmonary process.
[2021-12-24 05:28] VITALS: BP 148/81; PULSE 98; RESP 20; TEMP 36.7; O2SAT 93; BMI 24.0
--- NOTE | 2021-12-24 05:33 | ECG_ITS ---
Test Reason : cp Blood Pressure : / mmHG Vent. Rate : 073 BPM Atrial Rate : 073 BPM P-R Int : 144 ms QRS Dur : 076 ms QT Int : 380 ms P-R-T Axes : 044 006 001 degrees QTc Int : 418 ms Sinus rhythm with Premature atrial complexes with Aberrant conduction Otherwise normal ECG When compared with ECG of 07-OCT-2020 02:59, Aberrant conduction is now Present Heart rate has decreased Referred By: Elba Morgan Electronically Signed By:LORELEI GARCIA
--- NOTE | 2021-12-24 05:34 | ED_ITS ---
HPI - Weakness General Chief complaint: Weakness Stated complaint: Failure to thrive Time Seen by Provider: 12/24/21 05:28 Source: patient and EMS Mode of arrival: EMS Limitations: no limitations History of Present Illness HPI Narrative: Patient comes to the emergency room by ambulance. EMS reports that the patien t's called from home because the patient has gradually become weaker over the last week. 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 Patient states that she does feel weaker than usual, denies any chest pain or shortness of breath, no fever chills, no URI or UTI symptoms. Related Data Home Medications Medication Instructions Recorded Confirmed acetaminophen 500 mg tablet 1,000 mg PO Q6H PRN Pain 10/07/20 08/20/21 (Tylenol Extra Strength) aspirin 81 mg PO DAILY 10/07/20 08/20/21 vitamin B comp and C no.3 15 mg-10 1 cap PO DAILY 07/18/21 08/20/21 mg-50 mg-5 mg-300 mg capsule (B Complex Plus Vitamin C) nystatin 100,000 unit/gram topical 1 appl topical DAILY 07/19/21 08/20/21 powder amlodipine 5 mg tablet 5 mg PO DAILY 10/30/21 Previous Rx's Medication Instructions Recorded potassium chloride 10 mEq 10 meq PO DAILY 3 months #90 tabs 05/03/21 tablet,extended release(part/cryst) (Klor-Con M) docusate sodium 100 mg capsule 100 mg PO BEDTIME #30 caps 07/18/21 furosemide 40 mg tablet 40 mg PO DAILY 90 days #90 tabs 08/03/21 metformin 500 mg tablet 500 mg PO BIDWMEAL 30 days #60 tabs 08/29/21 oxybutynin chloride 10 mg 10 mg PO DAILY OAB 30 days #90 tabs 08/29/21 tablet,extended release 24 hr omeprazole 20 mg capsule,delayed 20 mg PO BID #180 caps 09/25/21 release glipizide 5 mg tablet, extended 5 mg PO DAILY 30 days #30 tabs 12/05/21 release 24 hr Allergies Allergy/AdvReac Type Severity Reaction Status Date / Time Sulfa (Sulfonamide Allergy Intermediate HIVES Verified 10/30/21 11:05 Antibiotics) [SULFA (SULFONAMIDE ANTIBIOTICS)] epinephrine AdvReac Severe palpitation Verified 10/30/21 11:05 s Review of Systems Review of Systems: Constitutional : No Weight loss, No Fever, No Chills, No Night Sweats, complaining of weakness ENT/Mouth : No Hearing loss, No Ear Pain, No Nasal Congestion, No Sinus Pain, No Hoarseness, No sore throat, No Rhinorrhea, No Swallowing Difficulty Eyes: No Eye Pain, No Swelling, No Redness, No Foreign Body, No Discharge, No Vision Changes Cardiovascular : No Chest Pain, No SOB, No Dyspnea on Exertion, No Orthopnea, No Edema, No Palpitations Respiratory : No Cough, No Sputum, No Wheezing, No Smoke Exposure, No Dyspnea Gastrointestinal : No Nausea, No Vomiting, No Diarrhea, No Constipation, No abdominal Pain, No Hematochezia, No Melena Genitourinary : no irregular bleeding, No Dysuria, No Urinary Frequency, No Hematuria, No Urinary Incontinence, No Urgency, No Flank Pain, No Urinary Flow Changes, No Hesitancy Musculoskeletal : No joint pain, No Myalgias, No Joint Swelling Skin : No Skin Lesions, No rash Neuro : Complaining of Weakness, No Numbness, No Paresthesias, No Loss of Con sciousness, No Dizziness, No Headache Psych : No Anxiety/Panic, No Depression, No SI/HI/AH/VH, No Social Issues, Heme/Lymph: No Bruising, No Bleeding,No Lymphadenopathy Endocrine : No Polyuria, No Polydipsia, No Temperature Intolerance [facility] Past Medical History Medical History Arthritis History of CVA (cerebrovascular accident) Hypertension, essential OAB (overactive bladder) Pedal edema Perforated ulcer of intestine Perforated viscus Smoker Umbilical hernia Unilateral edema of lower extremity Surgical History History of arthroscopy of right knee History of bilateral cataract extraction History of gastric surgery History of tonsillectomy History of total abdominal hysterectomy and bilateral salpingo-oophorectomy History of tubal ligation Hx of colonoscopy S/P skin biopsy Family History Family History Father Rheumatic heart disease Hypertension Mother CVD (cardiovascular disease) Dementia Sister Breast cancer Brother No problems noted. Paternal Aunt Breast cancer Family/Other FH: mental illness Other Mental health disorder Substance use disorder Social History Social History Household Members: Spouse Housing: House Do you presently have visiting nurse or other home services: Yes Alcohol intake: never Patient Tobacco Use Status: Former Tobacco user Tobacco use type: Cigarette Cigarette Packs Per Day: 1 Cigarettes Per Day: 20.0 e-Cigarette/Vaping Use: Never Used Second Hand Smoke Exposure: No Advance Directives: No Advance Directives Information Provided: No service: No Current occupational status: retired Current occupational exposures/hazards: No Cognitive needs: Yes (walker) Hearing needs: No Vision needs: Yes (glasses) Physical Exam Vital Signs: Vital Signs: Last Vital Signs Temp 98.1 F 12/24/21 05:28 Pulse 98 12/24/21 05:28 Resp 20 12/24/21 05:28 BP 148/81 H 12/24/21 05:28 Pulse Ox 93 12/24/21 05:28 O2 Del Method 12/24/21 05:28 BMI result Body Mass Index 24.0 Const: Other: Appearance: Alert. Oriented X3. No acute distress. Eyes: Pupils equal, round and reactive to light. ENT: Pharynx normal. Neck: Normal inspection. Neck supple. No lymph nodes noted. No crepitus CVS: Normal heart rate and rhythm. Pulses normal. Normal S1 and S2 Respiratory: No respiratory distress. Breath sounds normal. No Wheezing. No rales Abdomen: Soft and nontender. No rigidity. No distention. Skin: Skin warm and dry. Normal skin color. Normal skin turgor. Extremities: No lower extremity edema. No Lacerations. No Rash Neuro: Oriented X 3. No motor deficit. No sensory deficit. Moving all extremities. No slurred speech. CN 2 through 12 grossly intact Psych: calm, cooperative, normal affect Course Course Course Narrative: All of patient's labs are pending. At this time, patient has no complaints other than feeling weak. The patient has no criteria for admission. Patient will likely need a case management and physical therapy evaluation Please follow-up urine. Patient's called, patient is asking for help, specifically, asking for the patient to be placed in a senior care facility. MDM - Weakness Lab Data Result diagrams: 12/24/21 05:45 12/24/21 05:45 Labs: Lab Results 12/24/21 12/24/21 12/24/21 Range/Units 05:45 05:45 05:45 WBC 8.3 (4.8-10.8) X10*3/uL RBC 5.10 (4.20-5.50) X10*6/uL Hgb 14.1 D (12.0-16.0) g/dl Hct 44.1 D (37.0-47.0) % MCV 86.5 (80.0-98.0) fL MCH 27.6 (27.0-33.0) pg MCHC 32.0 (31.0-35.0) g/dl RDW 15.9 (11.0-16.0) % Plt Count 200 D (160-400) X10*3/uL MPV 9.8 (9.4-12.3) fL Immature Gran % (Auto) 0.2 (0.0-0.4) % Neut % (Auto) 69.1 (45-73) % Lymph % (Auto) 20.6 (20-40) % [place] % (Auto) 8.2 (2-11) % Eos % (Auto) 1.2 (0-4) % Baso % (Auto) 0.7 (0-2) % Lymph # (Auto) 1.7 (1.2-4.9) X10*3/uL [place] # (Auto) 0.7 (0.1-1.2) X10*3/uL Eos # (Auto) 0.1 (0.0-0.4) X10*3/uL Baso # (Auto) 0.1 (0.0-0.2) X10*3/uL Abs Immat Gran (auto) 0.02 (0.00-0.03) X10*3/uL Absolute Neuts (auto) 5.7 (2.0-8.3) x10*3/uL Absolute Nucleated RBC 0.000 (0.0-0.012) X10*3/uL Nucleated RBC % (auto) 0.0 (0.0-0.2) /100WBC Sodium 141 (135-145) mmol/L Potassium 4.1 (3.3-5.1) mmol/L Chloride 103 (96-108) mmol/L Carbon Dioxide 25 (22-29) mmol/L Anion Gap 17 (12-20) BUN 8 L (9-16) mg/dL Creatinine 0.87 (0.5-1.4) mg/dL Estim Creat Clear Calc 49.0 Estimated GFR > 60 Random Glucose 171 H (60-115) mg/dL Calcium 9.1 (8.4-10.2) mg/dL Magnesium 2.1 (1.6-2.6) mg/dL Total Bilirubin 0.8 (0.0-1.0) mg/dL Direct Bilirubin 0.3 (0.0-0.5) mg/dL AST 19 (5-31) U/L ALT 20 (0-31) U/L Alkaline Phosphatase 74 D (39-117) U/L Troponin I High Sens < 3.5 (<3.5-17.0) ng/L Total Protein 7.4 (6.5-8.0) g/dL Albumin 4.1 (3.5-5.0) g/dL TSH (0.32-4.0) uIU/mL COVID-19 ([facility]) (Negative) COVID-19 Clin Com 12/24/21 12/24/21 Range/Units 05:45 05:45 WBC (4.8-10.8) X10*3/uL RBC (4.20-5.50) X10*6/uL Hgb (12.0-16.0) g/dl Hct (37.0-47.0) % MCV (80.0-98.0) fL MCH (27.0-33.0) pg MCHC (31.0-35.0) g/dl RDW (11.0-16.0) % Plt Count (160-400) X10*3/uL MPV (9.4-12.3) fL Immature Gran % (Auto) (0.0-0.4) % Neut % (Auto) (45-73) % Lymph % (Auto) (20-40) % [place] % (Auto) (2-11) % Eos % (Auto) (0-4) % Baso % (Auto) (0-2) % Lymph # (Auto) (1.2-4.9) X10*3/uL [place] # (Auto) (0.1-1.2) X10*3/uL Eos # (Auto) (0.0-0.4) X10*3/uL Baso # (Auto) (0.0-0.2) X10*3/uL Abs Immat Gran (auto) (0.00-0.03) X10*3/uL Absolute Neuts (auto) (2.0-8.3) x10*3/uL Absolute Nucleated RBC (0.0-0.012) X10*3/uL Nucleated RBC % (auto) (0.0-0.2) /100WBC Sodium (135-145) mmol/L Potassium (3.3-5.1) mmol/L Chloride (96-108) mmol/L Carbon Dioxide (22-29) mmol/L Anion Gap (12-20) BUN (9-16) mg/dL Creatinine (0.5-1.4) mg/dL Estim Creat Clear Calc Estimated GFR Random Glucose (60-115) mg/dL Calcium (8.4-10.2) mg/dL Magnesium (1.6-2.6) mg/dL Total Bilirubin (0.0-1.0) mg/dL Direct Bilirubin (0.0-0.5) mg/dL AST (5-31) U/L ALT (0-31) U/L Alkaline Phosphatase (39-117) U/L Troponin I High Sens (<3.5-17.0) ng/L Total Protein (6.5-8.0) g/dL Albumin (3.5-5.0) g/dL TSH 0.59 (0.32-4.0) uIU/mL COVID-19 ([facility]) Negative (Negative) COVID-19 Clin Com See Note Discharge Plan Discharge Clinical Impression: Weakness Prescriptions: No Action potassium chloride [Klor-Con M10] 10 mEq tablet,ER particles/crystals 10 meq PO DAILY 90 Days Qty: 90 1RF furosemide 40 mg tablet 40 mg PO DAILY 90 Days Qty: 90 3RF omeprazole 20 mg capsule,delayed release(DR/EC) 20 mg PO BID Qty: 180 1RF glipizide 5 mg tablet extended release 24hr 5 mg PO DAILY 30 Days Qty: 30 2RF acetaminophen [Tylenol Extra Strength] 500 mg Tablet 1,000 mg PO Q6H PRN (Reason: Pain) aspirin 81 mg PO DAILY nystatin 100,000 unit/gram powder 1 appl topical DAILY amlodipine 5 mg tablet 5 mg PO DAILY metformin 500 mg tablet 500 mg PO BIDWMEAL 30 Days Qty: 60 2RF oxybutynin chloride 10 mg tablet extended release 24 hr 10 mg PO DAILY 30 Days Qty: 90 3RF B Complex Plus Vitamin C 98-37-48-5-300 mg capsule 1 cap PO DAILY Rx Instructions: give with food (meal/snack) docusate sodium 100 mg capsule 100 mg PO BEDTIME Qty: 30 3RF
[2021-12-24 05:51] LABS: Basophils Absolute Auto 0.1 X10*3/uL (0.0-0.2); Basophils Percent Auto 0.7 % (0-2); Eosinophils Absolute Auto 0.1 X10*3/uL (0.0-0.4); Eosinophils Percent Auto 1.2 % (0-4); Hematocrit 44.1 % (37.0-47.0); Hemoglobin 14.1 g/dl (12.0-16.0); Imm Gran Abs Auto 0.02 X10*3/uL (0.00-0.03); Imm Gran Pct Auto 0.2 % (0.0-0.4); Lymphocytes Absolute Auto 1.7 X10*3/uL (1.2-4.9); Lymphocytes Percent Auto 20.6 % (20-40); MANUAL DIFF FLAG NO; Mean Corpuscular Hemoglobin 27.6 pg (27.0-33.0); Mean Corpuscular Volume 86.5 fL (80.0-98.0); Mean Platelet Volume 9.8 fL (9.4-12.3); Monocytes Absolute Auto 0.7 X10*3/uL (0.1-1.2); Monocytes Percent Auto 8.2 % (2-11); Neutrophils Absolute Auto 5.7 x10*3/uL (2.0-8.3); Neutrophils Percent Auto 69.1 % (45-73); Platelet Count 200 X10*3/uL (160-400); Red Cell Distribution Width 15.9 % (11.0-16.0); White Blood Count 8.3 X10*3/uL (4.8-10.8)
[2021-12-24 06:06] LABS: COVID-19 Test Negative (Negative)
[2021-12-24 06:11] LABS: Alanine Aminotransferase 20 U/L (0-31); Albumin Level 4.1 g/dL (3.5-5.0); Alkaline Phosphatase 74 U/L (39-117); Anion Gap 17 (12-20); Aspartate Amino Transferase 19 U/L (5-31); Bilirubin Direct 0.3 mg/dL (0.0-0.5); Bilirubin Total 0.8 mg/dL (0.0-1.0); Blood Urea Nitrogen 8 mg/dL (9-16); Calcium 9.1 mg/dL (8.4-10.2); Carbon Dioxide 25 mmol/L (22-29); Chloride 103 mmol/L (96-108); Estimated Glomerular Filt Rate > 60; Glucose Random 171 mg/dL (60-115); Magnesium 2.1 mg/dL (1.6-2.6); Potassium 4.1 mmol/L (3.3-5.1); Sodium 141 mmol/L (135-145); Total Protein 7.4 g/dL (6.5-8.0)
[2021-12-24 06:13] LABS: Troponin-I High Sensitivity < 3.5 ng/L (<3.5-17.0)
[2021-12-24 06:27] LABS: TSH reflex Free T4 0.59 uIU/mL (0.32-4.0)
[2021-12-24 07:11] VITALS: BP 184/107; PULSE 96; RESP 21; TEMP 36.5; O2SAT 93
--- NOTE | 2021-12-24 08:06 | PC.NURSE ---
Inserted 16fr urinary wynn cath. Pt denies discomfort. Verbal reassurance given as pt needs reminders that she can urinate without having to ambulate as she has a wynn cath. She is alert to self but forgets that she has a catheter and how it operates. Constant reminders given, pt is calm and resting quietly, no apparent distress.
[2021-12-24 08:20] LABS: Appearance Urine CLEAR; Color Urine STRAW; Glucose Urine UA NEG (NEG); Leukocyte Esterase Urine NEG (NEG); Nitrite Urine NEG (NEG); PH 7.5 (5.0-8.0); Urine Blood NEG (NEG); Urine Ketones NEG (NEG); Urine Protein NEG (NEG-TRACE)
--- NOTE | 2021-12-24 10:38 | PHA.MEDREC ---
Pharmacy Consult ? Medication Reconciliation Pharmacy has completed the medication reconciliation. Completed med rec based on claim history, unsure if pt is taking glipizide, pt unable to give med rec history, will continue to try to reach out to
--- NOTE | 2021-12-24 10:53 | PC.NURSE ---
Pt is unable to ambulate to a bathroom or commode, unsteady gait
[2021-12-24 12:02] VITALS: BP 156/112; PULSE 109; RESP 12; TEMP 36.8
[2021-12-24] MEDS: Furosemide 40 MG TABLET PO (13:44)
[2021-12-24] MEDS: Aspirin Enteric Coated 81 MG TABLET.DR PO (13:44)
[2021-12-24] MEDS: amLODIPine Besylate 5 MG TABLET PO (13:45)
[2021-12-24] MEDS: Multivitamin TABLET 1 TAB PO (13:45)
[2021-12-24] MEDS: metFORMIN HCl 500 MG TABLET PO ×2 (13:59→16:45)
[2021-12-24 16:31] VITALS: BP 144/94; PULSE 90; RESP 13; TEMP 36.7; O2SAT 89
[2021-12-24] MEDS: Omeprazole 20 MG CAPSULE.DR PO (16:45)
--- NOTE | 2021-12-24 17:13 | MHC.CM.ED ---
CM met with patient awaiting STR bed. Pt is sl forgetful and has some difficultly with word retrieval, but was able to articulate her choices for HCP, as none is on file. HCP reviewed with patient and with , completed and signed. Copies given. Uploaded into [facility] and [facility]. HCP#1/ Asa Waters ([phone]) and HCP #2/daughter Pilar Rojas ([phone]). 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 Pt uses a cane. Has a lift chair. provides all care. Vax x2/Pfizer. No booster. PCP is Nehemias Mccloud. PT is recommending STR with increased level of care in the future. Pt is agreeable to STR and accepts a bed at [facility]. is aware and accepts a bed at [facility]. Facility aware. Waiting for response. Expect transfer to facility in the morning 8/16. CM to follow for d/c needs.
--- NOTE | 2021-12-24 18:02 | PC.NURSE ---
Pt remains confused and is constantly being reminded to keep her pulse oximeter on for continuos monitoring as she desats to 88% on room air and is currently on 2L NC that brings her to 95%. She continues to request to have IV removed but once explained that it needs to remain she is content.
--- NOTE | 2021-12-24 19:09 | PC.NURSE ---
THIS NURSE HAS NOW ASSUMED CARE OF PT
[2021-12-24 19:30] VITALS: RESP 16
[2021-12-24] MEDS: Midazolam HCl/PF 2 MG/2 ML VIAL 0.5 MG IVPUSH (20:12)
--- NOTE | 2021-12-24 21:05 | PC.NURSE ---
PT NOTED TO PULLING AT HER IV AND LIAO CATH. PT ALSO ATTEMPTING TO GET OOB MULTIPLE TIMES DESPITE EFFORT IN VARIOUS TECHNIQUES OF RE-DIRECTION. RE-DIRECTION LESS EFFECTIVE NIGHT PROGRESSES. WILL ASK ED PROVIDER FOR MEDICATION ORDER
--- NOTE | 2021-12-24 21:32 | PC.NURSE ---
pt brought to bathroom with one assist, pt using walker, ambulatory with steady gait with walker and one assist
--- NOTE | 2021-12-24 21:40 | PC.NURSE ---
ATTEMPTED TO CALL DAUGHTER WHO CALLED ED FOR AN UPDATE NO ANSWER AT THIS TIME
[2021-12-24 23:13] VITALS: BP 114/68; PULSE 110; RESP 18; TEMP 36.6; O2SAT 96
--- NOTE | 2021-12-24 23:30 | PC.NURSE ---
pt re-vitaled, repositioned, asked if needs are met at this time, pt does not express any unmet needs at this time, pt given warm blanket, will continue to montior pt at this time
[2021-12-25] VITALS: BP 133/85; PULSE 77; RESP 14; O2SAT 95
[2021-12-25 02:00] VITALS: BP 117/81; PULSE 65; O2SAT 94
--- NOTE | 2021-12-25 02:44 | PC.NURSE ---
pt repositioned, given warm blanket, needs met at this time, pt bed locked in lowest position, call light within reach will continue to monitor pt at this time
--- NOTE | 2021-12-25 05:05 | PC.NURSE ---
resp effort unlabored reg no use of accessory muscles present, bed locked in lowest position, call light within reach, will continue to monitor pt
[2021-12-25 06:00] VITALS: BP 120/83; PULSE 99; O2SAT 93
--- NOTE | 2021-12-25 06:21 | PC.NURSE ---
patient asleep resp comfortably, called pharmacy to inquire on changing omeprazole admin schedule to reflect other morning med administration times. Awaiting pharmacy response
[2021-12-25] MEDS: Omeprazole 20 MG CAPSULE.DR PO (06:42)
--- NOTE | 2021-12-25 06:50 | PC.NURSE ---
pt medicated per MAR orders, tolerated PO with no issues. call mckeon within reach, bed locked in lowest position, will continue to monitor pt at this time
[2021-12-25 08:29] VITALS: BP 130/65; PULSE 101; RESP 16; TEMP 36.1; O2SAT 94
--- NOTE | 2021-12-25 09:35 | MHC.CM.ED ---
Addendum entered by Frances Taylor 12/25/21 09:57: DAUGHTER MARLENE [phone] AWARE OF DC PLAN. Original Note: PATIENT TO TRANSFER TO [facility] FOR [facility] (REQUEST MADE FOR THIS TIME) RN AND UNIT AWARE OF PLAN.
[2021-12-25] MEDS: Furosemide 40 MG TABLET PO (10:16)
[2021-12-25] MEDS: amLODIPine Besylate 5 MG TABLET PO (10:16)
[2021-12-25] MEDS: Multivitamin TABLET 1 TAB PO (10:17)
[2021-12-25] MEDS: metFORMIN HCl 500 MG TABLET PO (10:17)
[2021-12-25] MEDS: Aspirin Enteric Coated 81 MG TABLET.DR PO (10:17)
--- NOTE | 2021-12-25 10:23 | PC.NURSE ---
patient unaware of name and date of . response to assessment is the answer no . patient calm and cooperative . pearrla , patient wears glasses . lungs diminished . heart rate irregular 70-73. skin pink warm and dry . abdomen soft warm and dry . patient aware of plan of care to discharge to [facility] . family at bedside .
--- NOTE | 2021-12-25 10:45 | PC.NURSE ---
report given to Nancy CEDENO at [facility], [facility] . patient awaiting transport via EMS . patient and daughter aware of plan of care .
== END 2021-12-25 10:57 | disposition skilled nursing facility (03) ==
PROVIDERS: Emergency Provider Emergency Medicine
DX: R53.1 Weakness (principal); Z20.822 Contact with and (suspected) exposure to COVID-19; I10 Essential (primary) hypertension; E11.9 Type 2 diabetes mellitus without complications; Z86.73 Personal history of transient ischemic attack (TIA), and cerebral infarction without residual deficits; Z79.82 Long term (current) use of aspirin; Z79.899 Other long term (current) drug therapy; Z79.84 Long term (current) use of oral hypoglycemic drugs; Z87.891 Personal history of nicotine dependence
CPT/HCPCS: 36415; 71046; 80048; 80076; 81003; 83735; 84443; 84484; 85025; 87635; 93005; 97162; 99285; J2250

== ENCOUNTER → 2022-03-28 08:59 | Outpatient (BNVA) | payer MEDICARE, SELFPAY | PROVIDERS: PCP Family Medicine; Visit Provider Urology | DX: N32.81 Overactive bladder (principal); R32 Unspecified urinary incontinence; R35.0 Frequency of micturition; Z79.899 Other long term (current) drug therapy | CPT/HCPCS: 99212 ==

== ENCOUNTER → 2022-07-26 09:24 | Outpatient (BNVA) | payer MEDICARE, SELFPAY | PROVIDERS: PCP Family Medicine; Visit Provider Urology | DX: N32.81 Overactive bladder (principal); R32 Unspecified urinary incontinence | CPT/HCPCS: 51798; 99212 ==

== ENCOUNTER 2022-10-11 07:31 | Emergency (ER) | payer MEDICARE, SELFPAY ==
--- NOTE | ~2022-10-11 | XR_ITS ---
EXAMINATION: XR CHEST CLINICAL INFORMATION: Hypoxia COMPARISON: December 24, 2021 and October 12, 2020 TECHNIQUE: AP portable view of the chest was obtained. FINDINGS: There is chronic elevation of the right hemidiaphragm. Emphysematous changes seen at the lung apices bilaterally. There is some mild lung disease seen bilaterally at the lung bases. There is a region of density in the retrocardiac region which may be related to atelectasis or pneumonitis. Heart normal size. No evidence of pulmonary edema. No pneumothorax or significant pleural effusion. XR/XR chest 1V IMPRESSION: Mild interstitial lung disease as well as emphysematous change. Focus of density retrocardiac region which may be related to atelectasis or pneumonitis. Chronic elevation of the right hemidiaphragm.
--- NOTE | 2022-10-11 07:40 | ED.WEAKNESS ---
HPI - Weakness General Chief complaint: Fall Stated complaint: weakness, per ems Time Seen by Provider: 10/11/22 07:37 Source: patient and EMS Mode of arrival: EMS Limitations: no limitations History of Present Illness HPI Narrative: Patient slid out of the recliner trying to get to the bathroom, she was too weak to get up. This has happened in the past. She has had prior UTIs. MD Complaint: generalized weakness Onset (ago): hour(s) Duration: constant Location: generalized Severity: moderate Related Data Home Medications Medication Instructions Recorded Confirmed aspirin 81 mg tablet,delayed 81 mg PO DAILY ##0 10/07/20 07/26/22 release vitamin B comp and C no.3 15 mg-10 1 cap PO DAILY 07/18/21 07/26/22 mg-50 mg-5 mg-300 mg capsule (B Complex Plus Vitamin C) omeprazole 20 mg capsule,delayed 20 mg PO BID@0630,1630 12/24/21 07/26/22 release Previous Rx's Medication Instructions Recorded docusate sodium 100 mg capsule 100 mg PO BEDTIME #30 caps 07/18/21 amlodipine 5 mg tablet 5 mg PO DAILY 90 days #90 tabs 03/11/22 solifenacin 10 mg tablet 10 mg PO DAILY 90 days #90 tabs 04/01/22 cholecalciferol (vitamin D3) 25 25 mcg PO DAILY 90 days #90 caps 05/20/22 mcg (1,000 unit) capsule glipizide 5 mg tablet, extended 5 mg PO DAILY 30 days #30 tabs 05/20/22 release 24 hr potassium chloride 10 mEq 10 meq PO DAILY 3 months #90 tabs 07/22/22 tablet,extended release(part/cryst) (Klor-Con M) metformin 500 mg tablet See Rx Instructions PO BIDWMEAL 30 07/29/22 days #75 tabs furosemide 40 mg tablet 40 mg PO DAILY 90 days #90 tabs 08/12/22 Allergies Allergy/AdvReac Type Severity Reaction Status Date / Time Sulfa (Sulfonamide Allergy Intermediate HIVES Verified 07/26/22 09:50 Antibiotics) [SULFA (SULFONAMIDE ANTIBIOTICS)] epinephrine AdvReac Severe palpitation Verified 07/26/22 09:50 s Review of Systems Review of Systems: Yes all other systems are reviewed and are negative Respiratory: Comments: shortness of breath Neurologic: Denies Sensory deficit (Neuro) Comments: diffuse weakness PMFSH Past Medical History Medical History Arthritis History of CVA (cerebrovascular accident) Hypertension, essential OAB (overactive bladder) Pedal edema Perforated ulcer of intestine Perforated viscus Smoker Umbilical hernia Unilateral edema of lower extremity Surgical History History of arthroscopy of right knee History of bilateral cataract extraction History of gastric surgery History of tonsillectomy History of total abdominal hysterectomy and bilateral salpingo-oophorectomy History of tubal ligation Hx of colonoscopy S/P skin biopsy Family History Family History Father Rheumatic heart disease Hypertension Mother CVD (cardiovascular disease) Dementia Sister Breast cancer Brother No problems noted. Paternal Aunt Breast cancer Family/Other FH: mental illness Other Mental health disorder Substance use disorder Social History Social History Household Members: Spouse Housing: House Do you presently have visiting nurse or other home services: Yes Alcohol intake: never Patient Tobacco Use Status: Former Tobacco user Tobacco use type: Cigarette Cigarette Packs Per Day: 1 Cigarettes Per Day: 20.0 Smoked in Last 30 Days: No e-Cigarette/Vaping Use: Never Used Second Hand Smoke Exposure: No Use of substances other than those prescribed or required for medical reasons: No Advance Directives: Yes Advance Directives on File: Yes Advance Directives Date on File: 12/24/21 service: No Current occupational status: retired Current occupational exposures/hazards: No Cognitive needs: Yes (walker) Hearing needs: No Vision needs: Yes (glasses) Physical Exam Vital Signs: Vital Signs: Last Vital Signs Temp 97.8 F 10/11/22 10:00 Pulse 104 H 10/11/22 10:00 Resp 20 10/11/22 10:00 BP 118/63 10/11/22 10:00 Pulse Ox 93 10/11/22 10:00 O2 Del Method Nasal Cannula 10/11/22 10:00 O2 Flow Rate 2 10/11/22 10:00 BMI result Body Mass Index 25.8 Const: Other: elderly slow in no acute distress Nutritional Appearance: average body habitus Orientation/consciousness: oriented to person and patient oriented x3 Limitations: no limitations HEENT: Head: Yes normal to inspection Ears: external ears normal General nose exam: Normal external nose present Mouth: Normal oral and palatal mucosa present and oropharynx normal Throat: Yes posterior oropharynx normal Eyes: General: appearance normal, both eyes and all related structures Neck: Other: supple Neck: Yes normal visual inspection Chest: Chest palpation & inspection: normal inspection of the chest Resp: Other: slight wheeze bilaterally Cardio: Jugular venous distension: no JVD Rate: regular rate Rhythm: regular rhythm Heart sounds: S1 normal heart sound present and S2 normal heart sound present GI: Inspection: Yes normal to inspection Palpation (GI): Soft to palpation, nontender and No hepatosplenomegaly present Auscultation: normal bowel sounds : General: Yes no CVA tenderness Back/Spine/Pelvis: Back: no CVA tenderness Skin: General skin exam: no rashes or lesions noted Neuro: General: oriented to person and patient oriented x3 Cranial nerves: Yes CN's II-XII intact bilaterally Motor exam (neuro): 5/5 motor strength present throughout Sensory Exam: No Sensory deficit (Neuro) Extrem: General: Yes normal to inspection Psych: Appearance: grossly normal Course Reevaluation(s) Reevaluation #1: patient with COPD and likely chronic hypoxia with chronic changes on xray Time: 12:13 Medications Administered Discontinued Medications Generic Name Dose Route Start Last Admin Trade Name Freq PRN Reason Stop Dose Admin Albuterol/Ipratropium 3 ml 10/11/22 07:45 10/11/22 08:37 Albuterol/Iprat 2.5/0.5mg 3 Ml Ampul.Neb INHALE 10/11/22 07:46 3 ml ONCE ONE Administration Medical Decision Making Differential Diagnosis Differential Diagnoses: The differential diagnosis associated with the presentation includes (CVA, UTI, COPD, pneumonia were all considered) Admission/Observation Consideration of admission/observation: Escalation of care including admission/observation considered (IN this patient with COPD, CVA, HTN who presents with weakness, admission was considered.) Lab Data 10/11/22 08:49 10/11/22 08:49 Labs: Lab Results 10/11/22 10/11/22 10/11/22 Range/Units 08:19 08:49 08:49 WBC 12.1 H (4.8-10.8) X10*3/uL RBC 4.32 (4.20-5.50) X10*6/uL Hgb 12.2 (12.0-16.0) g/dl Hct 38.6 (37.0-47.0) % MCV 89.4 (80.0-98.0) fL MCH 28.2 (27.0-33.0) pg MCHC 31.6 (31.0-35.0) g/dl RDW 14.3 (11.0-16.0) % Plt Count 231 (160-400) X10*3/uL MPV 10.6 (9.4-12.3) fL Immature Gran % (Auto) 0.5 H (0.0-0.4) % Neut % (Auto) 80.0 H (45-73) % Lymph % (Auto) 10.4 L (20-40) % [place] % (Auto) 8.4 (2-11) % Eos % (Auto) 0.4 (0-4) % Baso % (Auto) 0.3 (0-2) % Lymph # (Auto) 1.3 (1.2-4.9) X10*3/uL [place] # (Auto) 1.0 (0.1-1.2) X10*3/uL Eos # (Auto) 0.1 (0.0-0.4) X10*3/uL Baso # (Auto) 0.0 (0.0-0.2) X10*3/uL Abs Immat Gran (auto) 0.06 H (0.00-0.03) X10*3/uL Absolute Neuts (auto) 9.7 H (2.0-8.3) x10*3/uL Absolute Nucleated RBC 0.000 (0.0-0.012) X10*3/uL Nucleated RBC % (auto) 0.0 (0.0-0.2) /100WBC Sodium 140 (135-145) mmol/L Potassium 4.0 (3.3-5.1) mmol/L Chloride 104 (96-108) mmol/L Carbon Dioxide 24 (22-29) mmol/L Anion Gap 16 (12-20) BUN 19 H (9-16) mg/dL Creatinine 0.99 (0.5-1.4) mg/dL Estim Creat Clear Calc 46.2 Estimated GFR 54 Random Glucose 172 H (60-115) mg/dL Calcium 9.4 (8.4-10.2) mg/dL Troponin I High Sens (<3.5-17.0) ng/L Urine Color Yellow Urine Appearance Cloudy Urine pH 5.5 (5.0-9.0) Ur Specific [place] 1.015 (1.005-1.025) Urine Protein Negative (Neg-Trace) mg/dL Urine Glucose (UA) Negative (Negative) mg/dL Urine Ketones Negative (Negative) mg/dL Urine Blood Negative (Negative) Urine Nitrite Negative (Negative) Ur Leukocyte Esterase Negative (Negative) COVID-19 (MARTINA) (Negative) COVID-19 Clin Com 10/11/22 10/11/22 Range/Units 08:49 09:44 WBC (4.8-10.8) X10*3/uL RBC (4.20-5.50) X10*6/uL Hgb (12.0-16.0) g/dl Hct (37.0-47.0) % MCV (80.0-98.0) fL MCH (27.0-33.0) pg MCHC (31.0-35.0) g/dl RDW (11.0-16.0) % Plt Count (160-400) X10*3/uL MPV (9.4-12.3) fL Immature Gran % (Auto) (0.0-0.4) % Neut % (Auto) (45-73) % Lymph % (Auto) (20-40) % [place] % (Auto) (2-11) % Eos % (Auto) (0-4) % Baso % (Auto) (0-2) % Lymph # (Auto) (1.2-4.9) X10*3/uL [place] # (Auto) (0.1-1.2) X10*3/uL Eos # (Auto) (0.0-0.4) X10*3/uL Baso # (Auto) (0.0-0.2) X10*3/uL Abs Immat Gran (auto) (0.00-0.03) X10*3/uL Absolute Neuts (auto) (2.0-8.3) x10*3/uL Absolute Nucleated RBC (0.0-0.012) X10*3/uL Nucleated RBC % (auto) (0.0-0.2) /100WBC Sodium (135-145) mmol/L Potassium (3.3-5.1) mmol/L Chloride (96-108) mmol/L Carbon Dioxide (22-29) mmol/L Anion Gap (12-20) BUN (9-16) mg/dL Creatinine (0.5-1.4) mg/dL Estim Creat Clear Calc Estimated GFR Random Glucose (60-115) mg/dL Calcium (8.4-10.2) mg/dL Troponin I High Sens < 2.7 (<3.5-17.0) ng/L Urine Color Urine Appearance Urine pH (5.0-9.0) Ur Specific [place] (1.005-1.025) Urine Protein (Neg-Trace) mg/dL Urine Glucose (UA) (Negative) mg/dL Urine Ketones (Negative) mg/dL Urine Blood (Negative) Urine Nitrite (Negative) Ur Leukocyte Esterase (Negative) COVID-19 (MARTINA) Negative (Negative) COVID-19 Clin Com See Note Independent Interpretation I performed an independent interpretation of an: EKG (sinus [address] or twave changes) and Plain X-Ray (chronic COPD changes no infiltrate) Independent Historian Clinical information obtained from an independent historian. History obtained from or confirmed by: EMS Tests considered The following testing was considered but not selected: I considered obtaining a head CT but patient is nonfocal Chronic Conditions Patient?s care impacted by: Hypertension and Other (COPD, CVA) Discharge Plan Discharge Clinical Impression: COPD (chronic obstructive pulmonary disease), Weak Patient Disposition: Xfer SNF Transfer Details: fall risk Instructions: COPD (Chronic Obstructive Pulmonary Disease) (ED), Weakness (ED) Prescriptions: No Action amlodipine 5 mg tablet 5 mg PO DAILY 90 Days Qty: 90 2RF solifenacin 10 mg tablet 10 mg PO DAILY 90 Days Qty: 90 3RF glipizide 5 mg tablet extended release 24hr 5 mg PO DAILY 30 Days Qty: 30 2RF potassium chloride [Klor-Con M10] 10 mEq tablet,ER particles/crystals 10 meq PO DAILY 90 Days Qty: 90 1RF metformin 500 mg tablet See Rx Instructions PO BIDWMEAL 30 Days Qty: 75 2RF Rx Instructions: 1 tab a.m. and 1.5 tabs p.m. orally 2 times per day with meals; furosemide 40 mg tablet 40 mg PO DAILY 90 Days Qty: 90 3RF aspirin 81 mg Tablet,Delayed Release (Dr/Ec) 81 mg PO DAILY Qty: 0 omeprazole 20 mg capsule,delayed release(DR/EC) 20 mg PO BID@0630,1630 cholecalciferol (vitamin D3) 25 mcg (1,000 unit) capsule 25 mcg PO DAILY 90 Days Qty: 90 2RF B Complex Plus Vitamin C [id number] mg capsule 1 cap PO DAILY Rx Instructions: give with food (meal/snack) docusate sodium 100 mg capsule 100 mg PO BEDTIME Qty: 30 3RF Referrals: [facility] [Other]
[2022-10-11 07:41] VITALS: BP 122/76; BP 138/82; PULSE 100; RESP 16; TEMP 36.4; O2SAT 92; O2SAT 96; BMI 25.8
--- NOTE | 2022-10-11 07:45 | ECG_ITS ---
Test Reason : FALL Blood Pressure : / mmHG Vent. Rate : 091 BPM Atrial Rate : 091 BPM P-R Int : 150 ms QRS Dur : 084 ms QT Int : 364 ms P-R-T Axes : 047 008 001 degrees QTc Int : 447 ms Normal sinus rhythm Low voltage QRS Cannot rule out Anterior infarct , age undetermined Abnormal ECG When compared with ECG of 24-DEC-2021 05:52, Aberrant conduction is no longer Present Referred By: J Carlos Beaver Electronically Signed By:MIAH WOODSON MD
[2022-10-11 08:37] LABS: Appearance Urine Cloudy; Color Urine Yellow; Glucose Urine UA Negative (Negative); Leukocyte Esterase Urine Negative (Negative); Nitrite Urine Negative (Negative); PH 5.5 (5.0-9.0); Specific Gravity - Urine 1.015 (1.005-1.025); Urine Blood Negative (Negative); Urine Ketones Negative (Negative); Urine Protein Negative (Neg-Trace)
[2022-10-11] MEDS: Albuterol/Iprat 2.5/0.5MG 3 ML AMPUL.NEB INHALE (08:37)
[2022-10-11 08:38] VITALS: PULSE 83; RESP 12; O2SAT 89
[2022-10-11 08:58] LABS: MANUAL DIFF FLAG NO
[2022-10-11 09:00] LABS: Basophils Percent Auto 0.3 % (0-2); Eosinophils Absolute Auto 0.1 X10*3/uL (0.0-0.4); Eosinophils Percent Auto 0.4 % (0-4); Hematocrit 38.6 % (37.0-47.0); Hemoglobin 12.2 g/dl (12.0-16.0); Imm Gran Abs Auto 0.06 X10*3/uL (0.00-0.03); Imm Gran Pct Auto 0.5 % (0.0-0.4); Lymphocytes Absolute Auto 1.3 X10*3/uL (1.2-4.9); Lymphocytes Percent Auto 10.4 % (20-40); Mean Corpuscular HGB Conc 31.6 g/dl (31.0-35.0); Mean Corpuscular Hemoglobin 28.2 pg (27.0-33.0); Mean Corpuscular Volume 89.4 fL (80.0-98.0); Mean Platelet Volume 10.6 fL (9.4-12.3); Monocytes Percent Auto 8.4 % (2-11); Neutrophils Absolute Auto 9.7 x10*3/uL (2.0-8.3); Platelet Count 231 X10*3/uL (160-400); Red Blood Count 4.32 X10*6/uL (4.20-5.50); Red Cell Distribution Width 14.3 % (11.0-16.0); White Blood Count 12.1 X10*3/uL (4.8-10.8)
[2022-10-11 09:13] VITALS: PULSE 83
[2022-10-11 09:13] LABS: Anion Gap 16 (12-20); Blood Urea Nitrogen 19 mg/dL (9-16); Calcium 9.4 mg/dL (8.4-10.2); Carbon Dioxide 24 mmol/L (22-29); Chloride 104 mmol/L (96-108); Creatinine Clr Calc Pharmacy 46.2; Estimated Glomerular Filt Rate 54; Glucose Random 172 mg/dL (60-115); Sodium 140 mmol/L (135-145)
[2022-10-11 10:00] VITALS: BP 118/63; PULSE 104; RESP 20; TEMP 36.6; O2SAT 93
[2022-10-11 10:14] LABS: COVID-19 Test Negative (Negative); IDNOW Serial# BCCEAD1C
[2022-10-11 10:20] LABS: Troponin-I High Sensitivity < 2.7 ng/L (<3.5-17.0)
--- NOTE | 2022-10-11 11:46 | MHC.CM.ED ---
Received case management consult from Dr Beaver. Patient came to the ER after a fall at home. Work up essentially negative. Physical therapy eval completed. Short term rehab is being recommended. Met with patient in regards to discharge planning. Patient lives with her , ambulates with a walker and had no services prior to coming to the hospital. PCP verified. Copy of HCP verified to be on file. Patient received 1 J&J vaccine. Patient has not been inpatient in the last 30 days. Patient aware referral will be broadcasted to all 3 local acute rehabs. [facility] is only facility able to offer a bed. Patient originally hesitant to go to rehab but understands it would be safer and is agreeable. Spoke with patient's /HCP, Asa via telephone at [phone]. Asa aware and agreeable to patient going to [facility]. Asa will bring patient's Solifenacin to [facility] as requested by the facility. Asa is grateful patient will be going to rehab to get stronger but feels patient's memory has been worsening recently. Information on [facility] provided. Asa also aware to make sure he is involved with the social media campaign manager at [facility] in order to help provide a safe discharge plan for patient. Rachelle GARDINER booked for 130pm. [facility] with chart. Patient, Adrianna Bray RN and Dr Beaver aware. Continue to monitor for d/c needs.
[2022-10-11 12:30] VITALS: BP 128/78; PULSE 87; RESP 18; TEMP 36.4; O2SAT 94
== END 2022-10-11 14:07 | disposition skilled nursing facility (03) ==
PROVIDERS: Physician Assistant; Emergency Provider Emergency Medicine; PCP Family Medicine
DX: J44.9 Chronic obstructive pulmonary disease, unspecified (principal); R53.1 Weakness; Z20.822 Contact with and (suspected) exposure to COVID-19; E11.9 Type 2 diabetes mellitus without complications; I10 Essential (primary) hypertension; Z87.891 Personal history of nicotine dependence; Z86.73 Personal history of transient ischemic attack (TIA), and cerebral infarction without residual deficits; Z79.82 Long term (current) use of aspirin; Z79.4 Long term (current) use of insulin; Z79.899 Other long term (current) drug therapy
CPT/HCPCS: 36415; 71045; 80048; 81003; 84484; 85025; 87635; 93005; 94640; 97162; 99285

== ENCOUNTER 2022-10-28 09:11 | Emergency (ER) | payer MEDICARE, SELFPAY ==
[2022-10-28 09:21] VITALS: BP 129/76; PULSE 76; RESP 18; TEMP 36.4; O2SAT 92; BMI 25.2
--- NOTE | 2022-10-28 09:36 | ECG_ITS ---
Test Reason : Weakness Blood Pressure : / mmHG Vent. Rate : 071 BPM Atrial Rate : 071 BPM P-R Int : 150 ms QRS Dur : 082 ms QT Int : 404 ms P-R-T Axes : 047 012 012 degrees QTc Int : 439 ms Normal sinus rhythm Low voltage QRS Cannot rule out Anterior infarct (cited on or before 11-OCT-2022) Abnormal ECG When compared with ECG of 11-OCT-2022 07:52, No significant change was found Referred By: Blank Sesay Electronically Signed By:SHANNAN STARR
[2022-10-28 10:02] LABS: MANUAL DIFF FLAG NO
[2022-10-28 10:04] LABS: Basophils Absolute Auto 0.1 X10*3/uL (0.0-0.2); Eosinophils Absolute Auto 0.2 X10*3/uL (0.0-0.4); Eosinophils Percent Auto 2.2 % (0-4); Hematocrit 38.1 % (37.0-47.0); Hemoglobin 11.9 g/dl (12.0-16.0); Imm Gran Abs Auto 0.09 X10*3/uL (0.00-0.03); Lymphocytes Absolute Auto 1.6 X10*3/uL (1.2-4.9); Lymphocytes Percent Auto 17.1 % (20-40); Mean Corpuscular HGB Conc 31.2 g/dl (31.0-35.0); Mean Corpuscular Hemoglobin 27.9 pg (27.0-33.0); Mean Corpuscular Volume 89.4 fL (80.0-98.0); Mean Platelet Volume 9.6 fL (9.4-12.3); Monocytes Percent Auto 10.4 % (2-11); Neutrophils Absolute Auto 6.3 x10*3/uL (2.0-8.3); Neutrophils Percent Auto 68.3 % (45-73); Platelet Count 317 X10*3/uL (160-400); Red Blood Count 4.26 X10*6/uL (4.20-5.50); Red Cell Distribution Width 14.1 % (11.0-16.0); White Blood Count 9.3 X10*3/uL (4.8-10.8)
[2022-10-28 10:45] VITALS: BP 119/75; PULSE 68; RESP 16; O2SAT 93
[2022-10-28 10:50] LABS: COVID-19 Test Negative (Negative); IDNOW Serial# 9DB6401D
--- NOTE | 2022-10-28 10:50 | ED.GENADULT ---
HPI - General Adult General Chief complaint: General Medical Stated complaint: WEAKNESS PER EMS Time Seen by Provider: 10/28/22 09:37 Source: family () Mode of arrival: EMS History of Present Illness HPI narrative: 82-year-old female who is brought in by EMS and is at bedside who called 911 and states that his was just recently discharged from short-term rehab, but she is still weak and he is unable to further assist her. He has no other acute concerns at this time other than it is too much for him to be able to care for her at this time and he is requesting [facility]. Related Data Home Medications Medication Instructions Recorded Confirmed aspirin 81 mg tablet,delayed 81 mg PO DAILY ##0 10/07/20 10/28/22 release omeprazole 20 mg capsule,delayed 20 mg PO BID@0630,1630 12/24/21 10/28/22 release diclofenac sodium 1 % topical gel 2 g topical TID 10/28/22 10/28/22 glipizide 5 mg tablet, extended 5 mg PO DAILY 10/28/22 10/28/22 release 24 hr melatonin 5 mg tablet 5 mg PO BEDTIME PRN Insomnia 10/28/22 10/28/22 metformin 500 mg tablet 500 mg PO DAILY 10/28/22 10/28/22 metformin 500 mg tablet 750 mg PO DAILY@1700 10/28/22 10/28/22 multivitamin 1 tab PO DAILY 10/28/22 10/28/22 Previous Rx's Medication Instructions Recorded solifenacin 10 mg tablet 10 mg PO DAILY 90 days #90 tabs 04/01/22 potassium chloride 10 mEq 10 meq PO DAILY 3 months #90 tabs 07/22/22 tablet,extended release(part/cryst) (Klor-Con M) furosemide 40 mg tablet 40 mg PO DAILY 90 days #90 tabs 08/12/22 amlodipine 5 mg tablet 5 mg PO DAILY 90 days #90 tabs 10/14/22 Allergies Allergy/AdvReac Type Severity Reaction Status Date / Time Sulfa (Sulfonamide Allergy Intermediate HIVES Verified 07/26/22 09:50 Antibiotics) [SULFA (SULFONAMIDE ANTIBIOTICS)] epinephrine AdvReac Severe palpitation Verified 07/26/22 09:50 s Review of Systems Review of Systems: Pertinent positives and negatives as stated in HPI PMFSH Past Medical History Source: nursing notes reviewed Medical History Arthritis History of CVA (cerebrovascular accident) Hypertension, essential OAB (overactive bladder) Pedal edema Perforated ulcer of intestine Perforated viscus Smoker Umbilical hernia Unilateral edema of lower extremity Surgical History History of arthroscopy of right knee History of bilateral cataract extraction History of gastric surgery History of tonsillectomy History of total abdominal hysterectomy and bilateral salpingo-oophorectomy History of tubal ligation Hx of colonoscopy S/P skin biopsy Family History Family History Father Rheumatic heart disease Hypertension Mother CVD (cardiovascular disease) Dementia Sister Breast cancer Brother No problems noted. Paternal Aunt Breast cancer Family/Other FH: mental illness Other Mental health disorder Substance use disorder Social History Social History Household Members: Spouse Housing: House Do you presently have visiting nurse or other home services: Yes Alcohol intake: never Patient Tobacco Use Status: Former Tobacco user Tobacco use type: Cigarette Cigarette Packs Per Day: 1 Cigarettes Per Day: 20.0 e-Cigarette/Vaping Use: Never Used Second Hand Smoke Exposure: No Advance Directives: Yes Advance Directives on File: Yes Advance Directives Date on File: 12/24/21 service: No Current occupational status: retired Current occupational exposures/hazards: No Cognitive needs: Yes (walker) Hearing needs: No Vision needs: Yes (glasses) Physical Exam ED Vital Signs: Vital Signs - 24 hr 10/28/22 09:21 10/28/22 10:45 10/28/22 12:31 Temperature 97.5 F Pulse Rate 76 68 68 Respiratory Rate 18 16 Blood Pressure 129/76 119/75 119/75 Pulse Oximetry 92 93 93 Oxygen Delivery Method Room Air Room Air BMI result Body Mass Index 25.2 VITAL SIGNS: Reviewed. GENERAL: Well developed, well nourished, in no acute distress. HEAD: Normocephalic/atraumatic EYES: PERRLA, EOMI EARS: Ext canals without abnormality NOSE: Nares patent bilateral OROPHARYNX: no oral lesions noted, posterior pharynx clear NECK: Supple, no adenopathy LUNGS: Normal breath sounds. No adventitious sounds or accessory muscle use. SpO2<93> CARDIOVASCULAR: Regular rate and rhythm without noted murmurs ABDOMEN: Soft, non-tender, non-distended with bowel sounds. MUSCULOSKELETAL: No tenderness, deformities, or effusions noted on gross inspection. EXTREMITIES: No cyanosis, clubbing or edema. SKIN: Inspection of the skin reveals no rashes NEUROLOGIC: Alert and oriented x 4. Strength 3/5 on the right, 4/5 on the left Medical Decision Making Medical Decision Making MDM Narrative: 82-year-old female without medical complaints at this time other than stating that he is unable to care for the patient by himself a home and is requesting [facility] placement. We will medically clear, case management is aware of this case. I reviewed all investigations and patient is otherwise medically cleared for placement, I have been notified by case management that she has a bed at [facility] and transport will arrive at 16:00. Patient remains hemodynamically stable and is currently eating her meal. Differential Diagnosis Please see the discussion above Lab Data Please see the discussion above 10/28/22 09:49 Labs: Lab Results 10/28/22 10/28/22 10/28/22 Range/Units 09:49 10:30 13:13 WBC 9.3 (4.8-10.8) X10*3/uL RBC 4.26 (4.20-5.50) X10*6/uL Hgb 11.9 L (12.0-16.0) g/dl Hct 38.1 (37.0-47.0) % MCV 89.4 (80.0-98.0) fL MCH 27.9 (27.0-33.0) pg MCHC 31.2 (31.0-35.0) g/dl RDW 14.1 (11.0-16.0) % Plt Count 317 D (160-400) X10*3/uL MPV 9.6 (9.4-12.3) fL Immature Gran % (Auto) 1.0 H (0.0-0.4) % Neut % (Auto) 68.3 (45-73) % Lymph % (Auto) 17.1 L (20-40) % [place] % (Auto) 10.4 (2-11) % Eos % (Auto) 2.2 (0-4) % Baso % (Auto) 1.0 (0-2) % Lymph # (Auto) 1.6 (1.2-4.9) X10*3/uL [place] # (Auto) 1.0 (0.1-1.2) X10*3/uL Eos # (Auto) 0.2 (0.0-0.4) X10*3/uL Baso # (Auto) 0.1 (0.0-0.2) X10*3/uL Abs Immat Gran (auto) 0.09 H (0.00-0.03) X10*3/uL Absolute Neuts (auto) 6.3 (2.0-8.3) x10*3/uL Absolute Nucleated RBC 0.000 (0.0-0.012) X10*3/uL Nucleated RBC % (auto) 0.0 (0.0-0.2) /100WBC Urine Color Yellow Urine Appearance Clear Urine pH 6.5 (5.0-9.0) Ur Specific [place] 1.020 (1.005-1.025) Urine Protein Negative (Neg-Trace) mg/dL Urine Glucose (UA) Negative (Negative) mg/dL Urine Ketones Negative (Negative) mg/dL Urine Blood Negative (Negative) Urine Nitrite Negative (Negative) Ur Leukocyte Esterase Trace H (Negative) COVID-19 (MARTINA) Negative (Negative) COVID-19 Clin Com See Note Independent Interpretation I performed an independent interpretation of an: EKG Interpretation: Normal sinus rhythm, HR -71, no STEMI, SD/QRS/QTC is within normal limits. Discharge Plan Discharge Clinical Impression: Physical deconditioning Patient Disposition: Xfer Other Instructions: Weakness (ED), Fatigue (ED) Additional Instructions: 1. Resume all home medications as prescribed. Prescriptions: No Action solifenacin 10 mg tablet 10 mg PO DAILY 90 Days Qty: 90 3RF potassium chloride [Klor-Con M10] 10 mEq tablet,ER particles/crystals 10 meq PO DAILY 90 Days Qty: 90 1RF furosemide 40 mg tablet 40 mg PO DAILY 90 Days Qty: 90 3RF amlodipine 5 mg tablet 5 mg PO DAILY 90 Days Qty: 90 2RF aspirin 81 mg Tablet,Delayed Release (Dr/Ec) 81 mg PO DAILY Qty: 0 omeprazole 20 mg capsule,delayed release(DR/EC) 20 mg PO BID@0630,1630 metformin 500 mg tablet 500 mg PO DAILY diclofenac sodium 1 % gel 2 g topical TID metformin 500 mg tablet 750 mg PO DAILY@1700 glipizide 5 mg tablet extended release 24hr 5 mg PO DAILY multivitamin Tablet 1 tab PO DAILY melatonin 5 mg Tablet 5 mg PO BEDTIME PRN (Reason: Insomnia) Referrals: [facility] [Outside]
--- NOTE | 2022-10-28 11:30 | PHA.MEDREC ---
Pharmacy Consult ? Medication Reconciliation Pharmacy has completed the medication reconciliation. PATIENT HAD A LIST FROM [employer] [facility] WHICH WAS NOT HER DISCHARGE SUMMARY, BUT A LIST CONFIRMED WITH THE RN FROM [facility]. SPOKE TO DAUGHTER
[2022-10-28 12:31] VITALS: BP 119/75; PULSE 68; O2SAT 93
--- NOTE | 2022-10-28 12:56 | PC.NURSE ---
pt sitting up in bed, eating lunch independently. aware of plan of care.
--- NOTE | 2022-10-28 13:15 | PC.NURSE ---
straight cath tolerated well. 150ml yellow urine output. sample sent to lab.
[2022-10-28 13:22] LABS: Appearance Urine Clear; Color Urine Yellow; Glucose Urine UA Negative (Negative); Leukocyte Esterase Urine Trace (Negative); Nitrite Urine Negative (Negative); PH 6.5 (5.0-9.0); UMIC TRIGGER UACC YES; Urine Blood Negative (Negative); Urine Ketones Negative (Negative); Urine Protein Negative (Neg-Trace)
--- NOTE | 2022-10-28 13:34 | MHC.CM.ED ---
Received case management consult from Dr Sesay. Patient came to ER due to weakness. Patient known to T/W from last ER visit. Patient was transferred to [facility] on 10/11 and discharged home with [facility] on 10/26. Work up essentially negative. Physical therapy eval completed. Short term rehab is recommended. Spoke with patient's , Asa, via telephone at [phone]. Patient was discharged home from [facility] on Friday. She was refusing to transfer for ambulation for Asa. [facility]UTIERREZA came to visit patient on Friday. Patient was cooperative with A. Patient refused to transfer or ambulate for Asa today. Patient activated EMS and had her transferred to the ER. Asa is aware bed availability has been difficult to find locally and agreeable to referral being broadcasted. Referral options discussed. Asa accepts bed at [facility]. Patient can leave at 430pm. Rachelle GARDINER booked. [facility] with chart. Patient, Mellisa Bray RN and Dr Sesay aware. Continue to monitor for d/c needs.
[2022-10-28 13:37] LABS: Bacteria Urine None Seen (None Seen); Hyaline Casts Urine 0-2 /LPF (0-2); RBC Urine 0-2 /HPF (0-2); WBC Urine 0-5 /HPF (0-5)
--- NOTE | 2022-10-28 16:30 | PC.NURSE ---
[facility] on [facility] for extended time and hung up on.
== END 2022-10-28 16:34 ==
PROVIDERS: Emergency Provider Student in an Organized Health Care Education/Training Program; PCP Family Medicine
DX: R53.1 Weakness (principal); R26.81 Unsteadiness on feet; R94.31 Abnormal electrocardiogram [ECG] [EKG]; Z79.899 Other long term (current) drug therapy; Z87.891 Personal history of nicotine dependence; Z20.822 Contact with and (suspected) exposure to COVID-19; Z20.828 Contact with and (suspected) exposure to other viral communicable diseases
CPT/HCPCS: 36415; 81001; 85025; 87635; 93005; 97161; 99285